=== PATIENT | male | born 1965 | race African-American/Black ===

== ENCOUNTER 2016-07-10 05:45 | Inpatient (IN) | payer OTHER ==
[2016-07-10] VITALS (16 sets, daily range): BP systolic 113–138; BP diastolic 73–96; PULSE 100–106; RESP 24–48; TEMP 97.5; Ht 176.5 cm; Wt 123.0 kg
[~2016-07-10] VITALS: Ht 176.5 cm; Wt 123.0 kg
[~2016-07-10 05:45] MED LIST: ALBU8.5H5 INH; AMIT100T2 PO; APIX2.5T PO; ASC500 PO; ASPI-664 PO; AZIT250T6 PO; CEPH500C PO; FER325 PO; LISI10TA2 PO; MULT-552 PO; OLAN10TA7 PO; PANT40TA3 PO; POLY17PO6 PO; RALT400T4 PO; TRUV PO
[2016-07-10] MEDS ORDERED: ALBUTEROL 0.083% (NEB) 2.5 MG/3 ML AMP HHN STA (05:48)
[2016-07-10] MEDS ORDERED: IPRATROPIUM (NEB) 0.5 MG/2.5 ML AMP HHN ONE (06:00)
[2016-07-10] MEDS ORDERED: ALBUTEROL 0.5% (NEB) 2.5 MG/0.5 ML AMP INH STA (06:03)
[2016-07-10] MEDS ORDERED: IPRATROPIUM (NEB) 0.5 MG/2.5 ML AMP INH STA (06:03)
--- NOTE | 2016-07-10 06:19 | ERA ---
ER Documentation Chief Complaint Date/Time DATE: 07/10/16 TIME: 06:15 Chief Complaint bib ra c/o SOB x 5 days, low ra sats but corrects w/ hi-joe O2; denies COPD HPI This is a 50-year-old transgender male to female who goes by the name of Joanne. The patient has a history of HIV on antiviral therapy with AIDS defining illness of PCP pneumonia in March. The patient also has a history of hormone replacement therapy, DVT, pulmonary embolism on Eliquis. The patient presents with shortness of breath for several days approximately 5. She does describe a cough that is dry and nonproductive. No fevers or chills. She denies any chest pain, no pleuritic pain, no lower extremity swelling. The patient arrives with significant hypoxia in the field including 70s upon arrival responsive to supplemental oxygen. ROS All systems reviewed and are negative except as per history of present illness. Medications Home Meds Active Scripts Apixaban* (Eliquis*) 2.5 Mg Tablet, 5 MG PO BID for 30 Days, TAB Prov:YUDY CINTRON 04/03/15 Reported Medications Ferrous Sulfate* (Ferrous Sulfate*) 325 Mg Tabec, 325 MG PO BID, TAB 07/10/16 Fluticasone Propionate (Flonase Allergy Relief) 9.9 Ml Keiser.susp, 1 SPRAY NASAL BID, #1 BOTTLE TO EACH NOSTRIL 07/10/16 Terbinafine Hcl* (Terbinafine Hcl*) 250 Mg Tablet, 250 MG PO DAILY, TAB 07/10/16 Calcium Citrate/Vitamin D (Citracal-Vitamin D 200 MG-250) 1 Each Tablet, 1 EACH PO BID, TAB 07/10/16 Olanzapine* (Zyprexa*) 10 Mg Tablet, 20 MG PO DAILY, #30 TAB 07/10/16 Lisinopril* (Lisinopril*) 20 Mg Tablet, 20 MG PO DAILY, #30 TAB 07/10/16 Multivitamins* (Once Daily*) 1 Tab Tablet, 1 TAB PO DAILY, TAB 01/31/15 Pantoprazole* (Protonix*) 40 Mg Tablet.dr, 40 MG PO DAILY 03/19/13 Emtricitabine-Tenofovir* (Truvada*) 1 Tab Tab, 1 TAB PO DAILY 03/19/13 Raltegravir Potassium* (Isentress*) 400 Mg Tablet, 400 MG PO BID 03/19/13 Discontinued Reported Medications Amitriptyline Hcl* (Amitriptyline Hcl*) 100 Mg Tablet, 150 MG PO QHS, #30 TAB 01/20/16 Olanzapine* (Zyprexa*) 10 Mg Tablet, 10 MG PO DAILY, TAB 02/01/15 Aspirin (Aspirin) 81 Mg Tablet.dr, 81 MG PO DAILY 03/19/13 Lisinopril* (Lisinopril*) 10 Mg Tablet, 10 MG PO DAILY 03/19/13 Discontinued Scripts Cephalexin* (Cephalexin*) 500 Mg Capsule, 500 MG PO Q8, #15 CAP Prov:HAYDE OGDEN MD 04/15/16 Azithromycin* (Azithromycin*) 250 Mg Tablet, 250 MG PO DAILY, #5 TAB Prov:HAYDE OGDEN MD 04/15/16 Ascorbic Acid (Vitamin C) 500 Mg Tab, 500 MG PO DAILY for 30 Days, TAB 1 Refill Prov:HAYDE OGDEN MD 04/15/16 Ferrous Sulfate* (Ferrous Sulfate*) 325 Mg Tabec, 325 MG PO DAILY for 30 Days, TAB 1 Refill Prov:HAYDE OGDEN MD 04/15/16 Polyethylene Glycol* (Miralax*) 17 Gm Powd.pack, 17 GM PO DAILY, #15 Prov:AUSTIN PRECIADO MD 01/08/16 Albuterol Sulfate* (Albuterol Sulfate* HFA) 8.5 Gm Hfa.aer.ad, 1-2 PUFF INH Q4H Y for WHEEZING AND SOB, #1 INHALER Prov:VIGNESH GUIDO MD 03/24/15 Allergies Allergies: Coded Allergies: No Known Allergy (Unverified , 07/10/16) PMhx/Soc History of Surgery: Yes (BACK SURGERY FEB 2015, EXPLORATORY SURGERY 1987) Anesthesia Reaction: No Hx Neurological Disorder: No Hx Respiratory Disorders: No Hx Cardiac Disorders: Yes (HTN ) Hx Psychiatric Problems: No Hx Miscellaneous Medical Probl: No Hx Alcohol Use: No Hx Substance Use: No Hx Tobacco Use: Yes FmHx Family History: No diabetes Physical Exam Vitals Vital Signs Date Time Temp Pulse Resp B/P Pulse Ox O2 Delivery O2 Flow Rate FiO2 07/10/16 06:54 129 100 100 07/10/16 06:30 Non Rebreather 15 07/10/16 06:02 98.1 125 26 144/88 90 07/10/16 06:00 125 42 92 Non Rebreather Mask 15.0 100 Physical Exam General: Well developed, well nourished, no acute distress, no significant respiratory distress, talking in full sentences Head: Normocephalic, atraumatic. Eyes: Pupils equally reactive, EOM intact ENT: Moist mucous membranes Neck: Supple, no lymphadenopathy Respiratory: Decreased aeration bilaterally with poor effort Cardiovascular: RRR, no murmurs, rubs, or gallops Abdominal: Soft, protuberant, non-tender, non-distended, no peritoneal signs : Deferred MSK: No edema, no unilateral swelling, 5/5 strength Neurologic: Alert and oriented, moving all extremities, normal speech, no focal weakness, no cerebellar signs Skin: No rash Psych: Normal mood Result Diagram: 07/10/16 0600 07/10/16 0600 Results 24 hrs Laboratory Tests Test 07/10/16 06:00 07/10/16 06:03 White Blood Count 9.310^3/ul Red Blood Count 4.6110^6/ul Hemoglobin 12.4g/dl Hematocrit 38.6% Mean Corpuscular Volume 83.7fl Mean Corpuscular Hemoglobin 26.9pg Mean Corpuscular Hemoglobin Concent 32.1g/dl Red Cell Distribution Width 17.0% Platelet Count 09935^3/UL Mean Platelet Volume 9.1fl Neutrophils % 76.9% Lymphocytes % 14.1% Monocytes % 6.4% Eosinophils % 1.3% Basophils % 0.3% Nucleated Red Blood Cells % 0.0/100WBC Neutrophils # 7.210^3/ul Lymphocytes # 1.310^3/ul Monocytes # 0.610^3/ul Eosinophils # 0.110^3/ul Basophils # 0.010^3/ul Nucleated Red Blood Cells # 0.010^3/ul Prothrombin Time 15.7Sec Prothrombin Time Ratio 1.2 INR International Normalized Ratio 1.24 Activated Partial Thromboplast Time 33.6Sec Sodium Level 134mmol/L Potassium Level 3.8mmol/L Chloride Level 96mmol/L Carbon Dioxide Level 29mmol/L Anion Gap 13 Blood Urea Nitrogen 5mg/dl Creatinine 0.87mg/dl Glucose Level 123mg/dl Lactic Acid Level 1.4mmol/L Calcium Level 8.5mg/dl Total Bilirubin 0.0mg/dl Direct Bilirubin 0.00mg/dl Indirect Bilirubin 0.0mg/dl Aspartate Amino Transf (AST/SGOT) 47IU/L Alanine Aminotransferase (ALT/SGPT) 24IU/L Alkaline Phosphatase 79IU/L Lactate Dehydrogenase 1551IU/L Troponin I < 0.012ng/ml B-Type Natriuretic Peptide 483PG/ML Total Protein 7.2g/dl Albumin 3.8g/dl Globulin 3.40g/dl Albumin/Globulin Ratio 1.11 Blood Gas Specimen Source Blood arterial Arterial Blood Date Drawn 07/10/2016 6:20:24 AM Arterial Blood pH (Temp corrected) 7.437 Arterial Blood pCO2 (Temp correct) 38.7mmhg Arterial Blood pO2 (Temp corrected) 61.6mmHG Arterial Blood HCO3 25.5mmol/L Arterial Blood Base Excess 1.4mmol/L Arterial Blood Oxygen Saturation 92.1mmHG Abhi Test N/A Arterial Blood Gas Puncture Site Right Brachial Arterial Blood Carboxyhemoglobin 1.9% Arterial Blood Methemoglobin 0.2% Blood Gas A-a O2 Differential 215.2mmHg Oxyhemoglobin Percent 90.2% Total Hemoglobin 13.3g/dl Blood Gas Temperature 37.0C Blood Gas Actual Respiration Rate 28 Blood Gas Modality AEROSOL TX MASK FiO2 45.0% Blood Gas Critical Value Read Back DR GUIDO, N. Blood Gas Notified Whom BL Blood Gas Notified Time 07/10/2016 6:29:39 AM Current Medications Medications (Trade) Dose Ordered Sig/Tanner Route PRN Reason Start Time Stop Time Status Last Admin Dose Admin Albuterol (Proventil 0.083% (Neb)) 5 mg ONCE STAT HHN 07/10/16 05:48 07/10/16 05:50 DC Ipratropium [place] (Atrovent 0.02% (Neb)) 0.5 mg ONCE ONCE HHN 07/10/16 06:00 07/10/16 06:01 DC Albuterol (Proventil 0.5% (Neb)) 10 mg ONCE STAT INH 07/10/16 06:03 07/10/16 06:05 DC 07/10/16 06:05 Ipratropium [place] (Atrovent 0.02% (Neb)) 1 mg ONCE STAT INH 07/10/16 06:03 07/10/16 06:05 DC 07/10/16 06:05 Methylprednisolone Sodium Succinate 125 mg 125 mg ONCE ONCE IV 07/10/16 06:30 07/10/16 06:31 DC 07/10/16 06:22 Sodium Chloride 1,000 ml @ 1,000 mls/hr Q1H STAT IV 07/10/16 06:34 07/10/16 07:33 DC Cefepime HCl 50 ml @ 100 mls/hr ONCE STAT IVPB 07/10/16 06:34 07/10/16 07:03 DC 07/10/16 07:21 Vancomycin HCl 250 ml @ 125 mls/hr ONCE STAT IVPB 07/10/16 06:34 07/10/16 08:33 DC Trimethoprim/ Sulfamethoxazole/ Dextrose (Bactrim/D5W) 538.4 ml @ 350 mls/hr Q6 IVPB 07/10/16 07:00 07/10/16 08:34 Sodium Chloride (NS) 2,810 ml BOLUS OVER 2 HOURS STAT IV* 07/10/16 07:04 07/10/16 07:09 DC 07/10/16 07:22 Hydromorphone HCl (Dilaudid) 0.5 mg ONCE STAT IV 07/10/16 07:45 07/10/16 07:46 DC 07/10/16 08:27 Ondansetron HCl (Zofran Inj) 4 mg ONCE STAT IV 07/10/16 07:45 07/10/16 07:46 DC 07/10/16 08:27 Procedures/MDM EKG, MONITORS, & DIAGNOSTIC IMAGING: EKG: I reviewed and interpreted a 12-lead EKG. Rhythm: Sinus tachycardia Ectopy: None Intervals: No abnormalities ST segments: No elevations or depressions T waves: No contiguous inversions Chest x-ray: I reviewed and interpreted a 1 view of the chest Mediastinum: No enlargement Cardiac silhouette: cardiomegaly Airspace: Bilateral infiltrates Bones: No evidence of fracture LAB INTERPRETATION: No leukocytosis, negative troponin, indeterminate BNP, elevated LDH, negative lactic acid MEDICAL DECISION MAKING: The patient reports no history of COPD however a hospitalization in March shows evidence of emphysema. Given the patient's significant hypoxia I believe the patient would benefit from supplemental oxygen, hour long nebulizer, steroids. Additionally, the patient has been diagnosed with PCP pneumonia. Given the level of hypoxia this could represent PCP pneumonia. LDH has been sent. Chest x-ray obtained. Patient also has history of pulmonary embolism. Consider shunt physiology. If the patient's chest x-ray is not definitive a CTPA would be reasonable. The patient has had a recent CD4 greater than 900 however the patient does have an AIDS defining illness in the form of PCP pneumonia. No clinical signs or symptoms concerning for volume overload or CHF. ER COURSE: The patient was immediately placed on a nonrebreather with correction of significant hypoxia to 100% oxygen. This is reassuring., The patient has no significant work of breathing, no indication for positive pressure ventilation at this time. The patient's laboratory testing is also consistent with likely PCP pneumonia. The patient has bilateral infiltrates that are significant. The patient does not have an echocardiogram, BNP is indeterminate. I do not believe this is consistent with CHF. The patient has been given 2 L of saline with an improved heart rate. The patient does not meet sepsis criteria as the patient only has 1 out of 4 Sirs criteria. The patient would originally get 4 L of saline. I am concerned about volume overload in that setting. Therefore the patient has been given 2 L of saline. Broad-spectrum antibiotics in the form of vancomycin and cefepime as well as Bactrim were provided. The patient received steroids for emphysema but also requires steroids because of increased AA gradient in the setting of PCP pneumonia. The patient was started on BiPAP with improved symptomatology. The patient does not require intubation at this time. The patient however I believe would benefit from observation in the ICU. I have a lower clinical concern for pulmonary embolism. The patient states compliance with Eliquis. Given better alternative diagnosis given chest x-ray findings I do not believe a CTA at this time is warranted. I kept the patient and/or family informed of laboratory and diagnostic imaging results throughout the emergency room course. DISPOSITION PLAN: ICU admission CONSULTATION: Accepting care team and consultations: I discussed the current laboratory data, diagnostic imaging and emergency care provided. Admitting team: Dr. Miller Admitting team indication: Insurance directed Critical Care Note: Total time: 47 minutes Indication/Organ System Threat: Severe hypoxia, PCP pneumonia I spent the above amount of critical care time with the patient, not including billable procedures. This included chart review, consultations, repeat bedside evaluations, and titration of appropriate medications to prevent cardiopulmonary or respiratory collapse. Departure Diagnosis: Primary Impression: PCP (pneumocystis carinii pneumonia) Qualified Code: B59 - Pneumonia of both lungs due to Pneumocystis jirovecii, unspecified part of lung Additional Impressions: Acute respiratory failure Qualified Code: J96.01 - Acute respiratory failure with hypoxia History of HIV or AIDS Hypoxia Condition: Serious VIGNESH GUIDO MD Jul 10, 2016 06:19
[2016-07-10 06:25] LABS: ADD SCAN DIFF NO
[2016-07-10 06:29] LABS: AADO2 Arterial 215.2 mmHg (7.0-24.0); Arterial Base Excess 1.4 mmol/L (-3.0-3); Arterial COHb 1.9 % (0.0-3.0); Arterial Fraction of Oxyhgb 90.2 % (93.0-99.0); Arterial HCO3 25.5 mmol/L (22.0-26.0); Arterial MetHb 0.2 % (0.0-1.5); Arterial Total Hemglobin 13.3 g/dl (12.0-18.0); MODE AEROSOL TX MASK
[2016-07-10] MEDS ORDERED: METHYLPREDNISOLONE 125 MG INJ IV ONE (06:30)
[2016-07-10] MEDS ORDERED: VANCOMYCIN 1 GM (PMX) 250 ML IVPB STA (06:34)
[2016-07-10] MEDS ORDERED: CEFEPIME 1GM/50 ML (PMX) 50 ML IVPB STA (06:34)
[2016-07-10] MEDS ORDERED: SOD CHLORIDE 0.9% 1,000 ML IV STA (06:34)
[2016-07-10 06:37] LABS: BASOPHILS % 0.3 % (0.0-2.0); EOSINOPHILS # 0.1 10^3/ul (0.0-0.5); EOSINOPHILS % 1.3 % (0.0-7.0); HEMATOCRIT 38.6 % (42.0-52.0); HEMOGLOBIN 12.4 g/dl (14.0-18.0); INR 1.24; LYMPHOCYTES # 1.3 10^3/ul (0.8-2.9); LYMPHOCYTES % 14.1 % (15.0-51.0); MEAN CORPUSCULAR HEMOGLOBIN 26.9 pg (29.0-33.0); MEAN CORPUSCULAR HGB CONC 32.1 g/dl (32.0-37.0); MEAN CORPUSCULAR VOLUME 83.7 fl (82.0-101.0); MEAN PLATELET VOLUME 9.1 fl (7.4-10.4); MONOCYTE # 0.6 10^3/ul (0.3-0.9); MONOCYTES % 6.4 % (0.0-11.0); NEUTROPHIL # 7.2 10^3/ul (1.6-7.5); NEUTROPHILS % 76.9 % (39.0-77.0); PLATELET COUNT 287 10^3/UL (140-415); PROTIME 15.7 Sec (12.2-14.2); PT RATIO 1.2; RED BLOOD COUNT 4.61 10^6/ul (4.70-6.10); WHITE BLOOD COUNT 9.3 10^3/ul (4.8-10.8)
[2016-07-10 06:38] LABS: PARTIAL THROMBOPLASTIN TIME 33.6 Sec (25.0-35.0)
--- NOTE | 2016-07-10 06:39 | RADRPT ---
PROCEDURE: Chest. CLINICAL INDICATION: Shortness of breath. TECHNIQUE: Single frontal view of the chest was obtained. COMPARISON: 04/13/2016. FINDINGS: The cardiac silhouette is magnified. The aortic arch is unremarkable. There are hazy and patchy op acities bilaterally. There is no pneumothorax. IMPRESSION: Bilateral hazy and patchy opacities could represent pulmonary edema and/or multifocal pneumonia, inc reased compared with the prior study. .Kenyon Barnett MD, MD Date Time Electronically viewed and signed by .Kenyon Barnett MD, on 07/10/2016 06:39 .T/
[2016-07-10 06:49] LABS: ALBUMIN 3.8 g/dl (3.3-4.9); CHLORIDE 96 mmol/L (97-110); SODIUM 134 mmol/L (135-144)
[2016-07-10 06:50] LABS: POTASSIUM 3.8 mmol/L (3.5-5.1)
[2016-07-10 06:52] LABS: ALANINE AMINOTRANSFERASE 24 IU/L (13-69); ALBUMIN/GLOBULIN RATIO 1.11; ALKALINE PHOSPHATASE 79 IU/L (42-121); ANION GAP 13 (8-16); ASPARTATE AMINO TRANSFERASE 47 IU/L (15-46); BLOOD UREA NITROGEN 5 mg/dl (7-20); CARBON DIOXIDE 29 mmol/L (21-31); CREATININE 0.87 mg/dl (0.61-1.24); GLUCOSE 123 mg/dl (70-220); TOTAL PROTEIN 7.2 g/dl (6.1-8.1)
[2016-07-10 06:53] LABS: CALCIUM 8.5 mg/dl (8.4-10.2)
[2016-07-10] MEDS ORDERED: SODIUM CHLORIDE 0.9% 1L BAG IV* STA (07:04)
[2016-07-10] MEDS ORDERED: LISI20TA11 PO (07:06)
[2016-07-10] MEDS ORDERED: OLAN10TA7 PO (07:07)
[2016-07-10] MEDS ORDERED: CALC-143 PO (07:08)
[2016-07-10] MEDS ORDERED: TERB250T9 PO (07:09)
[2016-07-10] MEDS ORDERED: FLUT9.9S NASAL (07:10)
[2016-07-10] MEDS ORDERED: FER325 PO (07:19)
[2016-07-10] MEDS ORDERED: HYDROmorphONE 1 MG/ML SYG IV STA ×2 (07:45→12:01)
[2016-07-10] MEDS ORDERED: ONDANSETRON 4 MG INJ IV STA (07:45)
[2016-07-10 07:46] LABS: B-TYPE NATRIURETIC PEPTIDE 483 PG/ML (0-125)
[2016-07-10 07:56] LABS: TROPONIN-I < 0.012 ng/ml (0.00-0.12)
[2016-07-10] MEDS: DEXTROSE IVPB SCH ×3 (08:34→20:24)
[2016-07-10] MEDS: SULFAMETHOXAZOLE IVPB SCH ×3 (08:34→20:24)
[2016-07-10] MEDS: TRIMETHOPRIM IVPB SCH ×3 (08:34→20:24)
[2016-07-10] MEDS ORDERED: LORAZEPAM 2 MG INJ IV PRN (09:00)
[2016-07-10] MEDS ORDERED: ONDANSETRON 4 MG INJ IV PRN (09:00)
[2016-07-10] MEDS: MULTIVITAMINS THERAPEUTIC TAB PO SCH (09:00)
[2016-07-10] MEDS ORDERED: ALBUTEROL/IPRATROPIUM (NEB) 3 ML AMP HHN PRN (09:00)
[2016-07-10] MEDS: OLANZAPINE 5 MG TAB PO SCH (10:23)
[2016-07-10] MEDS: APIXABAN 5 MG TABLET PO SCH ×2 (10:23→21:43)
[2016-07-10] MEDS: EMTRICITABINE/TENOFOVIR TAB PO SCH (10:23)
[2016-07-10] MEDS: TERBINAFINE 250 MG TAB PO SCH (10:24)
[2016-07-10] MEDS: RALTEGRAVIR 400 MG TAB PO SCH ×2 (10:24→21:43)
[2016-07-10] MEDS: CALCIUM/VITAMIN D (250/125) TAB PO SCH ×2 (10:24→21:44)
[2016-07-10] MEDS: LISINOPRIL 20 MG TAB PO SCH (10:24)
[2016-07-10] MEDS: FERROUS SULFATE (EC) 325 MG TAB PO SCH ×2 (10:24→21:43)
[2016-07-10] MEDS: FLUTICASONE 0.05% 16 GM NAS SPRAY NASAL SCH ×2 (10:24→21:44)
[2016-07-10] MEDS: FAMOTIDINE 20 MG INJ IV SCH (10:36)
[2016-07-10] MEDS: FUROSEMIDE 40 MG INJ IV SCH (10:36)
[2016-07-10] MEDS: PANTOPRAZOLE (EC) 40 MG TAB PO SCH (10:36)
[2016-07-10] MEDS: ALBUTEROL/IPRATROPIUM (NEB) 3 ML AMP HHN SCH ×4 (11:45→21:30)
[2016-07-10 12:31] LABS: CREATINE KINASE 106 IU/L (23-200)
--- NOTE | 2016-07-10 12:46 | CONS ---
Date/Time of Note Date/Time of Note DATE: 07/10/16 TIME: 12:42 Assessment/Plan Assessment/Plan Additional Assessment/Plan Chest x-ray was reviewed from today which is showing bilateral it without infiltrates. Next Assessment recommendations; 1. Patient admitted for bilateral pneumonia possibly PCP however CD4 count is quite elevated that would make it very unlikely. 2. Possibly community acquired pneumonia. 3. Patient's BNP level is not elevated significantly, however there is mild cardiomegaly on chest x-ray is consistent with pulmonary edema as well. 4. History of being transgender. 5. History of prior PCP pneumonia in March of last year. Continue current treatment. Patient had been given Lasix. Continue BiPAP for now obtain a follow-up chest x-ray in 24 hours. Consultation Date/Type/Reason Admit Date/Time Date of Consultation: Jul 10, 2016 Type of Consultation: Pulmonary/critical care Reason for Consultation Pulmonary consultations requested for evaluation of bilateral pneumonia. Next History presenting; patient is a 50-year-old transgender male who was brought into the ER with complaints of shortness of breath going on for the last year to. Upon evaluation chest x-ray was done which is showing diffuse bilateral infiltrates which is suggestive of PCP pneumonia. The patient is very poor historian history was obtained from medical records. Patient had an admission in March of last year and was diagnosed with PCP pneumonia it is not clear whether patient is on any prophylactic medications or not. No history of any nausea vomiting fever. Past medical history; 1. History of HIV positive patient on anti-retroviral treatment. Evidently CD4 count is around 900. 2. History of being transgender. 3. Patient on hormone replacement therapy. 4. Depression 5. History of back surgery. 6. History of laparotomy. Medications; were reviewed. Allergies; are none. Next Social history; most of any smoking. Family history; noncontributory. Next Occupational history; patient is on disability. Review of systems; currently unable to be obtained. General exam; middle aged man, appears quite overweight currently in no distress. On BiPAP. Social History Smoking Status: Current every day smoker Exam/Review of Systems Vital Signs Vitals Vital Signs Date Time Temp Pulse Resp B/P Pulse Ox O2 Delivery O2 Flow Rate FiO2 07/10/16 12:00 98.1 117 20 135/89 98 BIPAP 15.0 07/10/16 11:51 100 Exam HEENT exam; supple neck, no JVD. No lymphadenopathy. Midline trachea. Patient has fair dentition. Pupils are midsize and reactive to light. No neck masses. Chest examination a micro diminished breath sound bilaterally. S1-S2 audible, no murmurs. Regular rhythm. Abdomen examination; soft, nondistended. No organomegaly. Bowel sounds audible. Extremity examination; no peripheral edema. PLANISHER examination a micro patient opens eyes on name calling. Results Result Diagram: 07/10/16 0600 07/10/16 0600 Results 24 hrs Laboratory Tests Test 07/10/16 06:00 07/10/16 06:03 07/10/16 08:09 07/10/16 09:44 White Blood Count 9.3 Red Blood Count 4.61 L Hemoglobin 12.4 L Hematocrit 38.6 #L Mean Corpuscular Volume 83.7 Mean Corpuscular Hemoglobin 26.9 L Mean Corpuscular Hemoglobin Concent 32.1 Red Cell Distribution Width 17.0 H Platelet Count 287 Mean Platelet Volume 9.1 Neutrophils % 76.9 Lymphocytes % 14.1 L Monocytes % 6.4 Eosinophils % 1.3 Basophils % 0.3 Nucleated Red Blood Cells % 0.0 Neutrophils # 7.2 Lymphocytes # 1.3 Monocytes # 0.6 Eosinophils # 0.1 Basophils # 0.0 Nucleated Red Blood Cells # 0.0 Prothrombin Time 15.7 H Prothrombin Time Ratio 1.2 INR International Normalized Ratio 1.24 Activated Partial Thromboplast Time 33.6 Sodium Level 134 L Potassium Level 3.8 Chloride Level 96 L Carbon Dioxide Level 29 Anion Gap 13 Blood Urea Nitrogen 5 L Creatinine 0.87 Glucose Level 123 Lactic Acid Level 1.4 1.8 1.0 Calcium Level 8.5 Total Bilirubin 0.0 L Direct Bilirubin 0.00 Indirect Bilirubin 0.0 Aspartate Amino Transf (AST/SGOT) 47 H Alanine Aminotransferase (ALT/SGPT) 24 Alkaline Phosphatase 79 Lactate Dehydrogenase 1551 H Troponin I < 0.012 B-Type Natriuretic Peptide 483 H Total Protein 7.2 Albumin 3.8 Globulin 3.40 H Albumin/Globulin Ratio 1.11 Blood Gas Specimen Source Blood arterial Arterial Blood Date Drawn 07/10/2016 6:20:24 AM Arterial Blood pH (Temp corrected) 7.437 Arterial Blood pCO2 (Temp correct) 38.7 Arterial Blood pO2 (Temp corrected) 61.6 L Arterial Blood HCO3 25.5 Arterial Blood Base Excess 1.4 Arterial Blood Oxygen Saturation 92.1 L Abhi Test N/A Arterial Blood Gas Puncture Site Right Brachial Arterial Blood Carboxyhemoglobin 1.9 Arterial Blood Methemoglobin 0.2 Blood Gas A-a O2 Differential 215.2 H Oxyhemoglobin Percent 90.2 L Total Hemoglobin 13.3 Blood Gas Temperature 37.0 Blood Gas Actual Respiration Rate 28 Blood Gas Modality AEROSOL TX MASK FiO2 45.0 Blood Gas Critical Value Read Back DR GUIDO N. Blood Gas Notified Whom BL Blood Gas Notified Time 07/10/2016 6:29:39 AM Medications Medications Current Medications Trimethoprim/ Sulfamethoxazole/ Dextrose (Bactrim/D5W) 538.4 ml @ 350 mls/hr Q6 IVPB Last administered on 07/10/16 08:34; Admin Dose 350 MLS/HR; Start at 07:00 Furosemide (Lasix) 40 mg DAILY IV Last administered on 07/10/16 10:36; Admin Dose 40 MG; Start 07/10/16 at 09:00 Ondansetron HCl (Zofran Inj) 4 mg Q6H PRN IV NAUSEA AND/OR VOMITING; Start at 09:00 Famotidine (Pepcid Iv) 20 mg DAILY IV Last administered on 07/10/16 10:36; Admin Dose 20 MG; Start 07/10/16 at 09:00 Lorazepam (Ativan) 0.5 mg Q6H PRN IV agitation; Start 07/10/16 at 09:00 Apixaban (Eliquis) 5 mg BID PO Last administered on 07/10/16 10:23; Admin Dose 5 MG; Start 07/10/16 at 09:00 Emtricitabine/ Tenofovir (Truvada) 1 tab DAILY PO Last administered on 10:23; Admin Dose 1 TAB; Start 07/10/16 at 09:00 Ferrous Sulfate (Ferrous Sulfate (Ec)) 325 mg BID PO Last administered on 10:24; Admin Dose 325 MG; Start 07/10/16 at 09:00 Fluticasone Propionate (Flonase 0.05% Nasal) 1 spray BID NASAL Last administered on 07/10/16 10:24; Admin Dose 1 SPRAY; Start 07/10/16 at 09:00 Lisinopril (Zestril) 20 mg DAILY PO Last administered on 07/10/16 10:24; Admin Dose 20 MG; Start 07/10/16 at 09:00 Multivitamins Therapeutic (Theragran) 1 tab DAILY PO ; Start 07/10/16 at 09:00 Olanzapine (Zyprexa) 20 mg DAILY PO Last administered on 07/10/16 10:23; Admin Dose 20 MG; Start 07/10/16 at 09:00 Pantoprazole (Protonix Tab) 40 mg DAILY PO Last administered on 07/10/16 10:36 ; Admin Dose 40 MG; Start 07/10/16 at 09:00 Miscellaneous Medication (Isentress) 400 mg BID PO Last administered on 10:24; Admin Dose 400 MG; Start 07/10/16 at 09:00 Terbinafine HCl (Lamisil) 250 mg DAILY PO Last administered on 07/10/16 10:24 ; Admin Dose 250 MG; Start 07/10/16 at 09:00 Calcium/Vitamin D (Oyster Shell/ Vit-D (250/125)) 1 tab BID PO Last administered on 07/10/16 10:24; Admin Dose 1 TAB; Start 07/10/16 at 09:00 ELIANE SINGLETON Jul 10, 2016 12:46
[2016-07-10 12:49] LABS: CK-MB < 0.22 ng/ml (0.0-2.4); TROPONIN-I < 0.012 ng/ml (0.00-0.12)
--- NOTE | 2016-07-10 12:58 | RADRPT ---
Echocardiogram Report Patient Name: JUDI BARNES Gender: Male Date: 1965 Study Date: 10-Jul-2016 Grainer Machine: Tha Ayon RDCS Location: [facility] Ref. Physician: DEANDRE MONTERROSO Quality: Good Procedures: Transthoracic echocardiogram with complete 2D, M-Mode, and doppler examination. Indications: hypoxia. 2D/M Mode Doppler Measurement Value Normal Ranges Measurement Value Normal Ranges LVIDd 2D 4.4 3.5 - 5.6 cm AV Peak Joseluis 1.6 m/sec LVIDs 2D 2.5 2.1 - 4.1 cm AV Peak PG 9.7 mmHg LVPWd 2D 0.9 0.6 - 1.1 cm LVOT Peak Joseluis 1.2 m/sec IVSd 2D 0.9 0.6 - 1.1 cm LVOT Peak PG 6.2 mmHg AoR Diam 2D 2.7 2.0 - 3.7 cm EDV 2D 87.7 cm3 ESV 2D 14.8 cm3 LA Dimen 2D 2.7 2.3 - 4.0 cm Findings Left Ventricle: Normal left ventricular systolic function. Normal left ventricular cavity size. Normal left ventricular wall thickness. Ejection fraction is visually estimated at 65 %. Right Ventricle: Normal right ventricular size. Normal right ventricular systolic function. Left Atrium: The left atrium is normal in size. Right Atrium: The right atrium is normal in size. Mitral Valve: Normal appearance and function of the mitral valve with trace physiologic regurgitation. Aortic Valve: Normal appearance of the aortic valve. No significant aortic stenosis or insufficiency. Tricuspid Valve: Normal appearance and function of the tricuspid valve with trace physiologic regurgitation. Pulmonic Valve: Normal pulmonic valve appearance. Pericardium: Normal pericardium with no significant pericardial effusion. Aorta: Normal aortic root. IVC: Normal size and normal respiratory collapse consistent with normal right atrial pressure. Conclusions 1.Normal left ventricular systolic function. Normal left ventricular cavity size. Normal left ventricular wall thickness. Ejection fraction is visually estimated at 65 %. 2.Normal right ventricular size. Normal right ventricular systolic function. 3.The left atrium is normal in size. 4.The right atrium is normal in size. 5.No significant valvular stenosis or regurgitation seen. 6.Normal pericardium with no significant pericardial effusion. Electronically Signed By: Viktor Solano 10-Jul-2016 12:57:01 -0700 Patient Name: JUDI BARNES Study Date: 10-Jul-2016 [id number]
[2016-07-10] MEDS ORDERED: morphine 2 MG INJ IV PRN (16:00)
[2016-07-10] MEDS ORDERED: CEFTRIAXONE 1 GM/50 ML (PMX) 50 ML IVPB SCH (18:00)
--- NOTE | 2016-07-10 18:52 | HP ---
DATE OF ADMISSION: 07/10/2016 CHIEF COMPLAINT: Shortness of breath. HISTORY OF PRESENT ILLNESS: This is a pleasant transgender female who prefers to be referred to as Joanne with past medical history of HIV on HAART therapy, previous hepatitis C status post treatment , bipolar disorder, hypertension, history of Staph pneumonia, hemothorax, history of L4-L5 fusion razo rgery with revision who presents to [facility] secondary to having 5 days of short ness of breath with cough and congestion without any fever or chills. The patient denies any chest pain, pleuritic pain, lower extremity swelling. Upon arrival to emergency room, the patient was fou nd to be hypoxic with oxygen saturation in 70s, and she responded to supplementation of oxygen. She was treated with Zofran, Dilaudid, normal saline, vancomycin, cefepime, Solu-Medrol, and breathing treatment. At this time, the patient has been admitted to ICU. The patient has been on BiPAP which has been transitioned to face mask. She denies having any chest pain although continues to complai n of having shortness of breath at this time. PAST MEDICAL AND SURGICAL HISTORY: As above per HPI. MEDICATIONS: 1. Eliquis. 2. Calcium plus vitamin D. 3. Truvada. 4. Ferrous sulfate. 5. Flonase. 6. Lisinopril. 7. Multivitamin. 8. Zyprexa. 9. Protonix. 10. Isentress. 11. Terbinafine. ALLERGIES: NO KNOWN DRUG ALLERGIES. FAMILY HISTORY: Noncontributory. SOCIAL HISTORY: Positive for history of smoking and currently smoking 5 cigarettes per day. No alc ohol, no illicit drugs. REVIEW OF SYSTEMS: As above per HPI. Otherwise, 12 review of systems was found to be negative. PHYSICAL EXAMINATION: VITAL SIGNS: Temperature 97.5, pulse 100, respiration 28, blood pressure 150/70, oxygen 96% on nonr ebreather mask 15 liters. GENERAL APPEARANCE: The patient is lying in bed comfortably without any distress. She is not using any accessory muscles for breathing. EYES AND ENT: Conjunctivae and lids are normal. Pupils are normal. Extraocular normal. Hearing g rossly normal. Lips and gums are normal. Oral mucosa is dry. NECK: Supple. Trachea is midline. No lymphadenopathy. RESPIRATORY: Effort is normal. Decreased breath sounds bilateral lower lung sethi. No crackles, no rales, no wheezing. CARDIOVASCULAR: Normal S1, S2. Tachycardic, rhythm controlled. GASTROINTESTINAL: Abdomen is soft, nontender, not distended. Bowel sounds present. No guarding, n o rebound. GENITOURINARY: Deferred. MUSCULOSKELETAL: Upper and lower extremities within normal limits. Full range of motion. NEUROLOGIC: She is awake, alert, oriented. LABORATORY WORK AND IMAGING: WBC 9.3, hemoglobin 12.4, hematocrit 38.6, platelets 287. Sodium 134, potassium 3.8, chloride 96, bicarbonate 29, BUN 13, creatinine 0.87, glucose 123, calcium 8.5. LFT s all within normal limits. BNP 483. Troponin negative. Chest x-ray showed bilateral hazy patchy opacity which could represent pulmonary edema and ____ pneumonia. ASSESSMENT AND PLAN: 1. Pneumonia. 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 We w ill follow their recommendation. 2. History of human immunodeficiency virus. Continue HAART therapy. 3. History of pulmonary embolism. Continue Eliquis. 4. Essential hypertension, well controlled on lisinopril. 5. Gastroesophageal reflux disease. Continue PPI. 6. History of bipolar disorder. Continue Zyprexa. We will continue to monitor patient closely. Further recommendations, management, and treatment as per clinical course. For DVT prophylaxis, on Eliquis. Dictated By: HAYDE OGDEN MD PN/NTS Conf#: [id number] DID#: [id number]
[2016-07-10 19:48] LABS: CREATINE KINASE 81 IU/L (23-200)
[2016-07-10 20:03] LABS: CK-MB 0.29 ng/ml (0.0-2.4); TROPONIN-I < 0.012 ng/ml (0.00-0.12)
[2016-07-10] MEDS: morphine 2 MG INJ IV PRN ×2 (20:04→23:06)
[2016-07-10] MEDS: AZITHROMYCIN 500MG/NS (PMX) 250 ML IVPB SCH (20:22)
[2016-07-11] VITALS (22 sets, daily range): BP systolic 82–126; BP diastolic 57–92; PULSE 95–122; RESP 19–50
[2016-07-11 00:35] LABS: AADO2 Arterial 589.6 mmHg (7.0-24.0); Allen Test ACCEPTAB; Arterial Base Excess -2.6 mmol/L (-3.0-3); Arterial COHb 0 % (0.0-3.0); Arterial Fraction of Oxyhgb 94.1 % (93.0-99.0); Arterial HCO3 23.3 mmol/L (22.0-26.0); Arterial MetHb 0.4 % (0.0-1.5); Arterial Total Hemglobin 12.8 g/dl (12.0-18.0); MODE HFNC
[2016-07-11] MEDS: DEXTROSE IVPB SCH ×2 (01:19→05:58)
[2016-07-11] MEDS: TRIMETHOPRIM IVPB SCH ×2 (01:19→05:58)
[2016-07-11] MEDS: SULFAMETHOXAZOLE IVPB SCH ×2 (01:19→05:58)
--- NOTE | 2016-07-11 01:26 | RADRPT ---
PROCEDURE: XR Chest. CLINICAL INDICATION: Shortness of breath. TECHNIQUE: AP Portable chest. COMPARISON: 07/10/2016 FINDINGS: There is moderate cardiomegaly. Bilateral hazy pulmonary opacities are without definite change. Th e osseous structures are unremarkable. IMPRESSION: Unchanged bilateral hazy opacities likely due to pulmonary edema. RPTAT: HIKT .Zachary Crocker MD, MD Date Time Electronically viewed and signed by .Zachary Crocker MD, MD on 07/11/2016 01:26 .T/
[2016-07-11] MEDS: morphine 2 MG INJ IV PRN ×8 (02:01→23:12)
[2016-07-11 04:33] LABS: ADD SCAN DIFF NO
[2016-07-11 04:35] LABS: BASOPHILS % 0.2 % (0.0-2.0); EOSINOPHILS # 0.1 10^3/ul (0.0-0.5); EOSINOPHILS % 0.5 % (0.0-7.0); HEMATOCRIT 35.9 % (42.0-52.0); HEMOGLOBIN 11.6 g/dl (14.0-18.0); LYMPHOCYTES # 1.5 10^3/ul (0.8-2.9); LYMPHOCYTES % 11.8 % (15.0-51.0); MEAN CORPUSCULAR HEMOGLOBIN 27.2 pg (29.0-33.0); MEAN CORPUSCULAR HGB CONC 32.3 g/dl (32.0-37.0); MEAN CORPUSCULAR VOLUME 84.1 fl (82.0-101.0); MONOCYTE # 0.9 10^3/ul (0.3-0.9); MONOCYTES % 6.7 % (0.0-11.0); NEUTROPHIL # 10.5 10^3/ul (1.6-7.5); NEUTROPHILS % 80.3 % (39.0-77.0); PLATELET COUNT 269 10^3/UL (140-415); RED BLOOD COUNT 4.27 10^6/ul (4.70-6.10); RED CELL DISTRIBUTION WIDTH 17.2 % (11.5-14.5)
[2016-07-11 04:48] LABS: CREATININE 0.62 mg/dl (0.61-1.24)
[2016-07-11 04:49] LABS: CALCIUM 8.3 mg/dl (8.4-10.2); MAGNESIUM 2.3 mg/dl (1.7-2.5); PHOSPHORUS 4.5 mg/dl (2.5-4.9)
[2016-07-11 05:32] LABS: POTASSIUM 3.7 mmol/L (3.5-5.1)
[2016-07-11] MEDS: ALBUTEROL/IPRATROPIUM (NEB) 3 ML AMP HHN SCH ×5 (05:45→20:26)
[2016-07-11] MEDS: FUROSEMIDE 40 MG INJ IV SCH (08:10)
[2016-07-11] MEDS: FAMOTIDINE 20 MG INJ IV SCH (08:10)
[2016-07-11] MEDS: FERROUS SULFATE (EC) 325 MG TAB PO SCH ×2 (08:11→21:28)
[2016-07-11] MEDS: RALTEGRAVIR 400 MG TAB PO SCH ×2 (08:11→21:28)
[2016-07-11] MEDS: FLUTICASONE 0.05% 16 GM NAS SPRAY NASAL SCH ×2 (08:11→21:27)
[2016-07-11] MEDS: APIXABAN 5 MG TABLET PO SCH ×2 (08:11→21:28)
[2016-07-11] MEDS: EMTRICITABINE/TENOFOVIR TAB PO SCH (08:12)
[2016-07-11] MEDS: MULTIVITAMINS THERAPEUTIC TAB PO SCH (08:12)
[2016-07-11] MEDS: TERBINAFINE 250 MG TAB PO SCH (08:12)
[2016-07-11] MEDS: PANTOPRAZOLE (EC) 40 MG TAB PO SCH (08:12)
[2016-07-11] MEDS: CALCIUM/VITAMIN D (250/125) TAB PO SCH ×2 (08:12→21:28)
[2016-07-11] MEDS: LISINOPRIL 20 MG TAB PO SCH (08:12)
[2016-07-11] MEDS: OLANZAPINE 5 MG TAB PO SCH (08:13)
--- NOTE | 2016-07-11 10:43 | PN ---
Date/Time of Note Date/Time of Note DATE: 07/11/16 TIME: 10:37 Assessment/Plan VTE Prophylaxis VTE Prophylaxis Intervention: other Lines/Catheters IV C[facility]ter Type ([facility] Peripheral IV Urinary Cath still in place: No Assessment/Plan Chief Complaint/Hosp Course ASSESSMENT AND PLAN: 1. Pneumonia. The patient has been started on broad spectrum IV antibiotic , the neurologist has been consulted, we will follow their recommendation. 2. History of human immunodeficiency virus. Continue HAART therapy. 3. History of pulmonary embolism. Continue Eliquis. 4. Essential hypertension, well controlled on lisinopril. 5. Gastroesophageal reflux disease. Continue PPI. 6. History of bipolar disorder. Continue Zyprexa. We will continue to monitor patient closely. Further recommendations, management, and treatment as per clinical course. For DVT prophylaxis, on Eliquis. Problems: Subjective 24 Hr Interval Summary Free Text/Dictation Patient denies of any chest pain or shortness of breath On high flow nasal cannula 30 L 100% Tolerating oral intake Exam/Review of Systems Vital Signs Vitals Vital Signs Date Time Temp Pulse Resp B/P Pulse Ox O2 Delivery O2 Flow Rate FiO2 07/11/16 09:33 100 100 07/11/16 09:33 83 24 Nasal Cannula 07/11/16 09:00 115/57 07/11/16 08:00 98.6 07/10/16 23:00 15.0 Intake and Output 07/10/16 07/10/16 07/11/16 15:00 23:00 07:00 Intake Total 2050 ml 1846.8 ml 1158.4 ml Output Total 2700 ml 1800 ml 1230 ml Balance -650 ml 46.8 ml -71.6 ml Exam General: The patient is well-developed, Not in acute distress. HEENT: Atraumatic, normocephalic. The pupils are equal and round . Neck: Supple with full range of motion. Chest: Normal expansion of the thorax during inspiration Lungs: Clear to auscultation bilaterally Heart: Normal S1-S2, Regular rhythm and rate. Abdomen: Soft , nontender, nondistended , bowel sounds are present. Extremities: Normal to inspection, no edema no cyanosis Neurologic: Normal mental status,The patient is awake, alert and oriented . Results Result Diagram: 07/11/16 0425 07/11/16 0425 Results 24 hrs Laboratory Tests Test 07/10/16 10:44 07/10/16 18:49 07/11/16 00:30 07/11/16 04:25 Creatine Kinase 106 81 Creatine Kinase Index 0.2 0.4 Creatinine Kinase MB (Mass) < 0.22 0.29 Troponin I < 0.012 < 0.012 Blood Gas Specimen Source Blood arterial Arterial Blood Date Drawn 07/11/2016 12:25:19 AM Arterial Blood pH (Temp corrected) 7.338 L Arterial Blood pCO2 (Temp correct) 44.3 Arterial Blood pO2 (Temp corrected) 79.1 L Arterial Blood HCO3 23.3 Arterial Blood Base Excess -2.6 Arterial Blood Oxygen Saturation 94.5 L Abhi Test ACCEPTAB Arterial Blood Gas Puncture Site Right Radial Arterial Blood Carboxyhemoglobin 0 Arterial Blood Methemoglobin 0.4 Blood Gas A-a O2 Differential 589.6 H Oxyhemoglobin Percent 94.1 Total Hemoglobin 12.8 Blood Gas Temperature 37.0 Blood Gas Modality HFNC FiO2 100.0 Blood Gas Notified Whom [place] Blood Gas Notified Time 07/11/2016 12:35:26 AM White Blood Count 13.0 #H Red Blood Count 4.27 L Hemoglobin 11.6 L Hematocrit 35.9 L Mean Corpuscular Volume 84.1 Mean Corpuscular Hemoglobin 27.2 L Mean Corpuscular Hemoglobin Concent 32.3 Red Cell Distribution Width 17.2 H Platelet Count 269 Mean Platelet Volume 9.0 Neutrophils % 80.3 H Lymphocytes % 11.8 L Monocytes % 6.7 Eosinophils % 0.5 Basophils % 0.2 Nucleated Red Blood Cells % 0.0 Neutrophils # 10.5 H Lymphocytes # 1.5 Monocytes # 0.9 Eosinophils # 0.1 Basophils # 0.0 Nucleated Red Blood Cells # 0.0 Sodium Level 140 Potassium Level 3.7 Chloride Level 102 Carbon Dioxide Level 27 Anion Gap 15 Blood Urea Nitrogen 5 L Creatinine 0.62 Glucose Level 98 Calcium Level 8.3 L Phosphorus Level 4.5 Magnesium Level 2.3 Test 07/11/16 05:49 Bedside Glucose 134 Medications Medications Current Medications Trimethoprim/ Sulfamethoxazole/ Dextrose (Bactrim/D5W) 538.4 ml @ 350 mls/hr Q6 IVPB Last administered on 07/11/16t 05:58; Admin Dose 350 MLS/HR; Start at 07:00 Furosemide (Lasix) 40 mg DAILY IV Last administered on 07/11/16 08:10; Admin Dose 40 MG; Start 07/10/16 at 09:00 Ondansetron HCl (Zofran Inj) 4 mg Q6H PRN IV NAUSEA AND/OR VOMITING; Start at 09:00 Famotidine (Pepcid Iv) 20 mg DAILY IV Last administered on 07/11/16 08:10; Admin Dose 20 MG; Start 07/10/16 at 09:00 Lorazepam (Ativan) 0.5 mg Q6H PRN IV agitation; Start 07/10/16 at 09:00 Apixaban (Eliquis) 5 mg BID PO Last administered on 07/11/16 08:11; Admin Dose 5 MG; Start 07/10/16 at 09:00 Emtricitabine/ Tenofovir (Truvada) 1 tab DAILY PO Last administered on 08:12; Admin Dose 1 TAB; Start 07/10/16 at 09:00 Ferrous Sulfate (Ferrous Sulfate (Ec)) 325 mg BID PO Last administered on 08:11; Admin Dose 325 MG; Start 07/10/16 at 09:00 Fluticasone Propionate (Flonase 0.05% Nasal) 1 spray BID NASAL Last administered on 07/11/16 08:11; Admin Dose 1 SPRAY; Start 07/10/16 at 09:00 Lisinopril (Zestril) 20 mg DAILY PO Last administered on 07/11/16 08:12; Admin Dose 20 MG; Start 07/10/16 at 09:00 Multivitamins Therapeutic (Theragran) 1 tab DAILY PO Last administered on 08:12; Admin Dose 1 TAB; Start 07/10/16 at 09:00 Olanzapine (Zyprexa) 20 mg DAILY PO Last administered on 07/11/16 08:13; Admin Dose 20 MG; Start 07/10/16 at 09:00 Pantoprazole (Protonix Tab) 40 mg DAILY PO Last administered on 07/11/16 08:12 ; Admin Dose 40 MG; Start 07/10/16 at 09:00 Miscellaneous Medication (Isentress) 400 mg BID PO Last administered on 08:11; Admin Dose 400 MG; Start 07/10/16 at 09:00 Terbinafine HCl (Lamisil) 250 mg DAILY PO Last administered on 07/11/16 08:12 ; Admin Dose 250 MG; Start 07/10/16 at 09:00 Calcium/Vitamin D (Oyster Shell/ Vit-D (250/125)) 1 tab BID PO Last administered on 07/11/16 08:12; Admin Dose 1 TAB; Start 07/10/16 at 09:00 Morphine Sulfate 0.5 mg 0.5 mg Q3H PRN IV PAIN Last administered on 07/11/16 08:21; Admin Dose 0.5 MG; Start 07/10/16 at 19:00 Azithromycin 250 ml @ 250 mls/hr Q24H IVPB Last administered on 07/10/16 20: 22; Admin Dose 250 MLS/HR; Start 07/10/16 at 18:00 Piperacillin Sod/ Tazobactam Sod (Zosyn 3.375gm/ 100 ml (Pmx)) 100 ml @ 200 mls /hr Q8 IVPB ; Start 07/11/16 at 14:00; Status HAYDE CHAVES MD Jul 11, 2016 10:43
[2016-07-11] MEDS ORDERED: FUROSEMIDE 20 MG INJ IV SCH ×2 (11:00→18:00)
--- NOTE | 2016-07-11 12:59 | CONS ---
Date/Time of Note Date/Time of Note DATE: 07/11/16 TIME: 12:57 Assessment/Plan Assessment/Plan Additional Assessment/Plan Chest x-ray was reviewed from today which is showing marked improvement in bilateral it without infiltrates. Next Assessment recommendations; 1. Patient admitted with bilateral pneumonia possibly PCP however mild pulmonary edema and community acquired pneumonia cannot be ruled out. Clinically and radiologically markedly improved. 2. History of COPD. 3. Transgender, currently on hormonal replacement. 4. History of back surgery. 5. Prior history of PCP pneumonia in March of last year. Next Continue current treatment. Patient can transfer to the medical floor. Consultation Date/Type/Reason Admit Date/Time Jul 10, 2016 at 08:48 Initial Consult Date 07/10/16 Type of Consultation: Pulmonary/critical care 24 HR Interval Summary Free Text/Dictation Patient condition is markedly improved. She is completely awake and alert. Denies any shortness of breath, cough wheezing fever chills. Next regular exam ; middle aged transgender male currently in no distress. Awake and alert. Exam/Review of Systems Vital Signs Vitals Vital Signs Date Time Temp Pulse Resp B/P Pulse Ox O2 Delivery O2 Flow Rate FiO2 07/11/16 12:00 115 07/11/16 12:00 98.3 25 109/72 High Flow 07/11/16 10:00 95 07/11/16 09:33 100 07/10/16 23:00 15.0 Intake and Output 07/10/16 07/10/16 07/11/16 15:00 23:00 07:00 Intake Total 2050 ml 1846.8 ml 1158.4 ml Output Total 2700 ml 1800 ml 1230 ml Balance -650 ml 46.8 ml -71.6 ml Exam HEENT exam is; supple neck, no JVD. No lymphadenopathy. Midline trachea. No thyromegaly. Patient has fair dentition. Pupils are midsize reactive to light. No neck masses. Chest examination; diminished but clear breath sounds bilaterally. S1-S2 audible, no murmurs. Regular rhythm. Abdomen examination; soft, nontender. No organomegaly. Bowel is audible. Extremity examination; no peripheral edema. Pulses 2+ bilaterally. No clubbing. 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 Results Result Diagram: 07/11/16 0425 07/11/16 0425 Results 24 hrs Laboratory Tests Test 07/10/16 18:49 07/11/16 00:30 07/11/16 04:25 07/11/16 05:49 Creatine Kinase 81 Creatine Kinase Index 0.4 Creatinine Kinase MB (Mass) 0.29 Troponin I < 0.012 Blood Gas Specimen Source Blood arterial Arterial Blood Date Drawn 07/11/2016 12:25:19 AM Arterial Blood pH (Temp corrected) 7.338 L Arterial Blood pCO2 (Temp correct) 44.3 Arterial Blood pO2 (Temp corrected) 79.1 L Arterial Blood HCO3 23.3 Arterial Blood Base Excess -2.6 Arterial Blood Oxygen Saturation 94.5 L Abhi Test ACCEPTAB Arterial Blood Gas Puncture Site Right Radial Arterial Blood Carboxyhemoglobin 0 Arterial Blood Methemoglobin 0.4 Blood Gas A-a O2 Differential 589.6 H Oxyhemoglobin Percent 94.1 Total Hemoglobin 12.8 Blood Gas Temperature 37.0 Blood Gas Modality HFNC FiO2 100.0 Blood Gas Notified Whom [place] Blood Gas Notified Time 07/11/2016 12:35:26 AM White Blood Count 13.0 #H Red Blood Count 4.27 L Hemoglobin 11.6 L Hematocrit 35.9 L Mean Corpuscular Volume 84.1 Mean Corpuscular Hemoglobin 27.2 L Mean Corpuscular Hemoglobin Concent 32.3 Red Cell Distribution Width 17.2 H Platelet Count 269 Mean Platelet Volume 9.0 Neutrophils % 80.3 H Lymphocytes % 11.8 L Monocytes % 6.7 Eosinophils % 0.5 Basophils % 0.2 Nucleated Red Blood Cells % 0.0 Neutrophils # 10.5 H Lymphocytes # 1.5 Monocytes # 0.9 Eosinophils # 0.1 Basophils # 0.0 Nucleated Red Blood Cells # 0.0 Sodium Level 140 Potassium Level 3.7 Chloride Level 102 Carbon Dioxide Level 27 Anion Gap 15 Blood Urea Nitrogen 5 L Creatinine 0.62 Glucose Level 98 Calcium Level 8.3 L Phosphorus Level 4.5 Magnesium Level 2.3 Bedside Glucose 134 Medications Medications Current Medications Trimethoprim/ Sulfamethoxazole/ Dextrose (Bactrim/D5W) 538.4 ml @ 350 mls/hr Q6 IVPB Last administered on 07/11/16t 05:58; Admin Dose 350 MLS/HR; Start at 07:00 Ondansetron HCl (Zofran Inj) 4 mg Q6H PRN IV NAUSEA AND/OR VOMITING; Start at 09:00 Lorazepam (Ativan) 0.5 mg Q6H PRN IV agitation; Start 07/10/16 at 09:00 Apixaban (Eliquis) 5 mg BID PO Last administered on 07/11/16 08:11; Admin Dose 5 MG; Start 07/10/16 at 09:00 Emtricitabine/ Tenofovir (Truvada) 1 tab DAILY PO Last administered on 08:12; Admin Dose 1 TAB; Start 07/10/16 at 09:00 Ferrous Sulfate (Ferrous Sulfate (Ec)) 325 mg BID PO Last administered on 08:11; Admin Dose 325 MG; Start 07/10/16 at 09:00 Fluticasone Propionate (Flonase 0.05% Nasal) 1 spray BID NASAL Last administered on 07/11/16 08:11; Admin Dose 1 SPRAY; Start 07/10/16 at 09:00 Lisinopril (Zestril) 20 mg DAILY PO Last administered on 07/11/16 08:12; Admin Dose 20 MG; Start 07/10/16 at 09:00 Multivitamins Therapeutic (Theragran) 1 tab DAILY PO Last administered on 08:12; Admin Dose 1 TAB; Start 07/10/16 at 09:00 Olanzapine (Zyprexa) 20 mg DAILY PO Last administered on 07/11/16 08:13; Admin Dose 20 MG; Start 07/10/16 at 09:00 Miscellaneous Medication (Isentress) 400 mg BID PO Last administered on 08:11; Admin Dose 400 MG; Start 07/10/16 at 09:00 Terbinafine HCl (Lamisil) 250 mg DAILY PO Last administered on 07/11/16 08:12 ; Admin Dose 250 MG; Start 07/10/16 at 09:00 Calcium/Vitamin D 1 tab 1 tab BID PO Last administered on 07/11/16 08:12; Admin Dose 1 TAB; Start 07/10/16 at 09:00 Azithromycin 250 ml @ 250 mls/hr Q24H IVPB Last administered on 07/10/16 20: 22; Admin Dose 250 MLS/HR; Start 07/10/16 at 18:00 Piperacillin Sod/ Tazobactam Sod (Zosyn 3.375gm/ 100 ml (Pmx)) 100 ml @ 200 mls /hr Q8 IVPB ; Start 07/11/16 at 14:00 Famotidine (Pepcid) 20 mg BID PO ; Start 07/11/16 at 21:00 Morphine Sulfate (morphine) 1 mg Q3H PRN IV PAIN Last administered on t 11:21; Admin Dose 1 MG; Start 07/11/16 at 11:30 ELIANE SINGLETON Jul 11, 2016 12:59
[2016-07-11] MEDS ORDERED: morphine 2 MG INJ IV PRN (13:00)
[2016-07-11] MEDS: PIPER-TAZO 3.375 GM IV (PMX) 100 ML IVPB SCH ×2 (14:07→21:38)
--- NOTE | 2016-07-11 14:15 | CONS ---
Date/Time of Note Date/Time of Note DATE: 07/11/16 TIME: 11:23 Assessment/Plan Assessment/Plan Chief Complaint/Hosp Course Joanne is a pleasant HIV(+) Transgender M->F, PMHx Bi-polar stable, no longer on Estrogen steroids Tx due to hx DVT/PE 2014 admitted with: * HIV STATUS: Controlled HIV (+)Dx 1987 w/HIV RF: IVDU + "sex with my " * Denies hx of AIDS/OIs=> Compliant with daily ARV meds: Truvada + Isentress 400mg PO BID * Follows at [facility] with Dr. Lupe Schmidt: Most recent labs: 989 CD4 # w/Non-detected HIV VL * 01/2016 CD4# 932 w/CD4% 42% * NOTE: s/p HIV + HCV Co-Infection: Previous hepatitis C, status post treatment. 1. Acute hypoxic respiratory distress in setting of recurrent community acquired PNA + Pulmonary edema + COPD Emphysema exacerbation. * Started on Bactrim IV + Steroids for ED MD concern of PCP/PJC; nevertheless her evidence of controlled HIV infections per labs here [facility] back to 2014 + good historian data make this concern less likely 2. Sepsis w/Fever spike today 101.2, leukocytosis, tachycardia, elevated B/P, rising lactic acid to 1.8, LDH 1551 in setting #1 * Started on IV Steroids = expect WBC to rise * VSS, no hemodynamic compromise * Mild tachycardia post Albuterol noted 3. COPD Exacerbation: Predominately emphysema, denies hx of Asthma, (+) Bronchitis 4. Acute PNA process: Community acquired vs potential for Aspiration PNA * (+)ASP PNA Risk factors: (+)Opioids, (+)Hiatal hernia w/GERD, (+)COPD = SUSPECT SILENT ASPIRATION POSSIBILITY * Note: Recurrent admission for PNA ? Silent Aspiration playing a hidden role? * DOUBT PCP/PJP => No history of AIDS, denies hx of AIDS OI 5. Acute Pulmonary Edema=> CXR 07/11/16 IMPRESSION:Unchanged bilateral hazy opacities likely due to pulmonary edema. * Pulm edema in setting PNA * Possible Flash Pulmonary Edema component per (+)Cardiomegaly w/hx of HTN + tachycardia in ED =>2D ECHO Normal w/EF 65% 6. HTN 7. Hiatal hernia with reflux/hx of painful GERD -> Silent aspiration risk factor 8. 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 Painful BLEXT Peripheral Neuropathy * Suspect HIV + ARV medication related, in addition to possible DMT2 * Rx Lyrica outside provider helps 10. s/p Hormone Tx long-term w/hx of DVT, pulmonary embolism on Eliquis. * No longer on Hormone Rx per high risk status 11. Bipolar disorder = Stable, patient doing well, has daughter in her life, compliant w/medical Rx 12. Hx of L4-L5 fusion surgery (2008) with revision (2014) * Hx of infected hardware/Osteomyelitis 2015 hardware explanted. 13. Chronic pain issues: Lumbar back + BLEXT painful peripheral neuropathy, presumptively related to HIV + DMT2 * On Oxycodone + Lyrica per PAIN CLINIC: Community Providers for Chronic Back Pain on Opioids Rx: * [facility] ([facility]). Address. [address] [place] [address], [address]. [place] [address] ... 14. Hx of (+)PPD 2014 with NO evidence prior TB Dx -> s/p Rx for Latent TB w/ INH + B6 x ~3mos * Incomplete Rx for Latent TB Prophy => she stopped due to drug-drug interaction w/Oxycodone - "Made me feel high" 15. Splenic calcifications-> can be seen in Histoplasmosis; she denies travel outside [facility], Will check urine AG, Cocci serology . Problems: Additional Assessment/Plan 1. DC Bactrim => she is at risk acute nephropathy on Truvada + Lisinopril + Lasixs * DOUBT PCP/PJP => No history of AIDS, denies hx of AIDS OI, good historian * No reason to doubt her compliance, she successfully completed [facility] Rx and past CD4#/VL here [facility] are well-controlled 2. Sputum for bacterial C&S obtained -> sent to lab 3. Continue Azith + Zosyn for now 4. She is on lasixs for pulmonary edema 5. Expect WBC to rise prior to normalization due to initiation of IV steroids 6. Continue HHN Rtx + added Bed CPT w/RTx 7. Pain meds per primary MD: She is requesting Rx Lyrica for peripheral neuropathy 8. Send CD4# and HIV VL = confirm current HIV status 9. No indication to send opportunistic infection, STD screening at this time since she is followed by [facility]. * [facility] providers will have her history and annual screening on record. * No evidence that she is immune compromised at this time. 10. When pulmonary status improves; anticipate DC home w/Rx Levaquin vs Augmentin x5 days to OP HIV Clinic provider f/u. 11. OP management of possible silent aspiration in setting Opioids == Outside sleep study referral may benefit * Thank you for referring this delightful Transgender M->F patient back to " Massimo Castro MD" ID Consultation, providers are familiar w/this case and Dr. Castro has recommended if no evidence of AIDS, no indication to complete AIDS OI work-up while on inpatient status. . . Consultation Date/Type/Reason Admit Date/Time Date of Consultation: Jul 11, 2016 Type of Consultation: INFECTIOUS DISEASES Reason for Consultation Antibiotic and HIV ARV Medication Management Hx of Present Illness DR. CASTRO INITIAL CONSULTATION COMPLETED PRIOR ADMISSION=> Patient well-known to "Massimo Castro MD" Consultants Joanne is a 50 yo transgendered M->F, who is HIV(+) on ARV medications (Truvada + Isentress 400mg PO BID), initially seen by Dr. Castro in consult during JAN 2015 admission for acute respiratory distress where she was noted to have bilateral upper lobe pulmonary emboli and DVT post lumbar surgery hardware explant. Additionally, Dr. Castro has consulted on several subsequent admission for recurrent COPD exacerbations, community acquired pneumonia including JAN 2016 admission where her CD4# 16 was 932# w/non-detected HIV viral load. She stabilized on broad spectrum antibiotics and was discharged on Levaquin. She returned for admission to [facility] in MAR [address] Chest revealed emphysema, ground glass opacities, and bilateral axillary adenopathy. Dr. Castro was also consulted and the patient was treated for community acquired pneumonia with consideration of alternative etiologies including 1) Drug reaction; and 2) Infections including atypical pneumonia such as Pneumocystis. Again, the patient responded well to antibiotic Rx for community acquired pneumonia without fevers and normal WBC count she was treated with Azithromycin and Keflex discharged to follow up with her community HIV provider who presumably knows her full HIV history and current status. CURRENT OUTPATIENT PROVIDERS HIV Clinic: [facility]=> Lupe Schmidt MD Community Providers for Chronic Back Pain on Opioids Rx Oxycodone medications: * [facility] ([facility]). Address. [address] [place] [address] ... 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 Apparently, the event was preceded by progressive shortness of breath over several days. She reports to me that she had subjective fevers at home prior not recorded that "broke" and in the ED she denied fevers/chills/N/V/chest pain/pleuritic pain. She described a dry and nonproductive cough. Of note she is a chronic long-term tobacco user, with evidence of emphysema on MAR 2016 CT Chest, as well as diagnosis of asthma on shellfish meat separator operator records. Her HR in the field recorded at 128 BPM with elevated blood pressure of 158/100. The patient was started on Bactrim and steroids IV for concern true opportunistic PCP/PJC pneumonia, in addition to receiving a dose of Vancomycin IV, Cefepime IV in the ED. She is now seen in the ICU with Ceftriaxone (DC'd), Azithromycin, and Zosyn IV antibiotics onboard in addition to Bactrim IV + Steroids. * CURRENT HIV STATUS PER PATIENT: Most recent labs @ [facility] = 989 CD4# & Nondetected HIV VL * Current ARV meds: Truvada + Isentress 400mg po BID => (+)Daily compliance - "I don't miss my meds" * HIV Dx Date: 1987, Denies hx of AIDS/OIs, does note remember when ARV meds were started * NOTE: Hx of (+)PPD 2014 -> s/p INH + B6 x ~3mos which she stopped due to drug -drug interaction w/Oxycodone - "Made me feel high" * NOTE: Patient spiking fever @ 1430 today -> BCx x2, UA, Urine C&S, Sputum Cx ordered and in process Today's Lab Results Result Diagram: 07/11/1642407/11/16424 MICRO: Specimen: [id number] Status: Resulted Serg: 07/10/16 Rcvd: 07/10 Source: BLOOD Sp Descrip: Procedure Result Microbiology BLOOD CULTURE Preliminary NO GROWTH AFTER 1 DAY DIAGNOSTIC IMAGING: CXR: DOS: 07/10/16 0603 CLINICAL INDICATION: Shortness of breath. TECHNIQUE: Single frontal view of the chest was obtained. COMPARISON: 04/13/2016. FINDINGS: The cardiac silhouette is magnified. The aortic arch is unremarkable. There are hazy and patchy opacities bilaterally. There is no pneumothorax. IMPRESSION: Bilateral hazy and patchy opacities could represent pulmonary edema and/or multifocal pneumonia, increased compared with the prior study. CXR 07/11/16 CLINICAL INDICATION: Shortness of breath. TECHNIQUE: AP Portable chest. COMPARISON: 07/10/2016 FINDINGS: There is moderate cardiomegaly. Bilateral hazy pulmonary opacities are without definite change. The osseous structures are unremarkable. IMPRESSION: Unchanged bilateral hazy opacities likely due to pulmonary edema. 07/10/16 2D ECHOCARDIOGRAM Conclusions 1. Normal left ventricular systolic function. Normal left ventricular cavity size. Normal left ventricular wall thickness. Ejection fraction is visually estimated at 65 %. 2. Normal right ventricular size. Normal right ventricular systolic function. 3. The left atrium is normal in size. 4. The right atrium is normal in size. 5. No significant valvular stenosis or regurgitation seen. 6. Normal pericardium with no significant pericardial effusion. ````````````````````````````````````````````````````````` Constitutional: requiring IVF, requiring O2, No chills, No diaphoresis, No disoriented, No febrile Eyes: no complaints ENT: no complaints Respiratory: cough (thin sticky brown scant sputum ), shortness of breath, sputum, No pain, No pleuritic pain, No wheezing Cardiovascular: No chest pain, No lightheadedness, No no complaints, No orthopenea, No palpitations Gastrointestinal: decreased appetite, No blood, No diarrhea, No nausea, No no complaints, No pain, No vomiting Genitourinary: No discharge, No flank pain, No hematuria Musculoskeletal: back pain Skin: no complaints Neurologic: no complaints, No confusion, No dizziness, No focal-weakness, No headache, No seizure, No syncope Endocrine: other ((+)Borderline DM w/peripheral neuropathic pain) Lymphatic: other, No lymphadema, No tender nodes Psychological: nl mood/affect, no complaints Immunologic: immunodeficiency (Hx of HIV well controlled HIV CD4# recent 989 / Nondetected VL / compliant w/ARV meds / ) Past Medical History 1. HIV (+)Dx 1987, denies hx of AIDS/OIs=> Compliant with daily ARV meds: Truvada + Isentress 400mg PO BID * Follows at [facility] with Dr. Lupe Schmidt: Most recent labs: 989 CD4# w/Nondetected HIV VL * 01/2016 CD4# 932 w/CD4% 42% 2. s/p Hormone Tx long-term w/hx of DVT, pulmonary embolism on Eliquis. * No longer on Hormone Rx per high risk status 3. Bipolar disorder. 4. Hypertension. 5. History of staph pneumonia with a history of hemothorax. 6. L4-L5 fusion surgery with revision (2008 & 2014) * Hx of infected hardware/Osteomyelitis 2014 hardware explanted. 7. COPD Predominant Emphysema * Chronic tobacco user 8. Borderline DMT2 w/Peripheral Neuropathy 9. Hiatal hernia with reflux 10. Gastroesophageal reflux disease. 11. Previous hepatitis C, status post treatment. 12. Splenic calcifications 13. Hx of Otitis Media/Otitis Externa 2012 14 Chronic pain issues: Lumbar back + BLEXT painful peripheral neuropathy, presumptively related to HIV + DMT2 15. Hx of (+)PPD 2014 with NO evidence prior TB Dx -> s/p Rx for Latent TB w/ INH + B6 x ~3mos which she stopped due to drug-drug interaction w/Oxycodone - "Made me feel high" 16. Onychomycosis: Toenail(s) => On Lamisil po Past Surgical History Lumbar Back Surgery: Initial decompression w/hardware 2008 => Revision 2014 => Ineffective Hardware Removal Family History Significant Family History: other (Mother: (+)Lupus / Grandmother (+)HTN ) Social History Alcohol Use: none Smoking Status: Light tobacco smoker (Hx 1PPD x 40 years) Drug Use: none Exam/Review of Systems Vital Signs Vitals Vital Signs Date Time Temp Pulse Resp B/P Pulse Ox O2 Delivery O2 Flow Rate FiO2 07/11/16 10:00 114 36 121/82 95 High Flow 07/11/16 09:33 100 07/11/16 08:00 98.6 07/10/16 23:00 15.0 Intake and Output 07/10/16 07/10/16 07/11/16 15:00 23:00 07:00 Intake Total 2050 ml 1846.8 ml 1158.4 ml Output Total 2700 ml 1800 ml 1230 ml Balance -650 ml 46.8 ml -71.6 ml Exam Constitutional: alert, obese, oriented, well developed Psych: nl mood/affect, no complaints Head: atraumatic, normocephalic Eyes: EOMI, PERRL, nl conjunctiva, nl lids, nl sclera, No icteric ENMT: mucosa pink and moist, nl external ears & nose, nl lips & teeth, other (( +)Tongue piercing stud in place ) Neck: non-tender, supple, No nuchal rigidity Respiratory: clear to auscultation, congested cough, diminished breath sounds, normal air movement, other (Examined on supplemental oxygen via NC), No crackles/rales, No intercostal retraction, No wheezing Cardiovascular: regular rate and rhythm, No gallop, No irregular rhythm, No murmurs/extra sounds Gastrointestinal: non-tender, other (Obese), soft Genitourinary - Male: other (Deferred per patient request ) Musculoskeletal: muscle tone, nl extremities to inspection Extremities: palpable cord, No calf tenderness, No clubbing, No cyanosis, No edema Neurological: IMAGING ASSISTANT II-XII intact, nl mental status, nl speech, nl strength, No confused, No focal weakness Skin: ecchymosis, nl turgor, puncture, No diaphoresis, No laceration, No rash or lesions Lymph: nl lymph nodes Results Result Diagram: 07/11/165 07/11/16 0425 Results 24 hrs Laboratory Tests Test 07/10/16 18:49 07/11/16 00:30 07/11/16 04:25 07/11/16 05:49 Creatine Kinase 81 Creatine Kinase Index 0.4 Creatinine Kinase MB (Mass) 0.29 Troponin I < 0.012 Blood Gas Specimen Source Blood arterial Arterial Blood Date Drawn 07/11/2016 12:25:19 AM Arterial Blood pH (Temp corrected) 7.338 L Arterial Blood pCO2 (Temp correct) 44.3 Arterial Blood pO2 (Temp corrected) 79.1 L Arterial Blood HCO3 23.3 Arterial Blood Base Excess -2.6 Arterial Blood Oxygen Saturation 94.5 L Abhi Test ACCEPTAB Arterial Blood Gas Puncture Site Right Radial Arterial Blood Carboxyhemoglobin 0 Arterial Blood Methemoglobin 0.4 Blood Gas A-a O2 Differential 589.6 H Oxyhemoglobin Percent 94.1 Total Hemoglobin 12.8 Blood Gas Temperature 37.0 Blood Gas Modality HFNC FiO2 100.0 Blood Gas Notified Whom MA Blood Gas Notified Time 07/11/2016 12:35:26 AM White Blood Count 13.0 #H Red Blood Count 4.27 L Hemoglobin 11.6 L Hematocrit 35.9 L Mean Corpuscular Volume 84.1 Mean Corpuscular Hemoglobin 27.2 L Mean Corpuscular Hemoglobin Concent 32.3 Red Cell Distribution Width 17.2 H Platelet Count 269 Mean Platelet Volume 9.0 Neutrophils % 80.3 H Lymphocytes % 11.8 L Monocytes % 6.7 Eosinophils % 0.5 Basophils % 0.2 Nucleated Red Blood Cells % 0.0 Neutrophils # 10.5 H Lymphocytes # 1.5 Monocytes # 0.9 Eosinophils # 0.1 Basophils # 0.0 Nucleated Red Blood Cells # 0.0 Sodium Level 140 Potassium Level 3.7 Chloride Level 102 Carbon Dioxide Level 27 Anion Gap 15 Blood Urea Nitrogen 5 L Creatinine 0.62 Glucose Level 98 Calcium Level 8.3 L Phosphorus Level 4.5 Magnesium Level 2.3 Bedside Glucose 134 Medications Medications Current Medications Trimethoprim/ Sulfamethoxazole/ Dextrose (Bactrim/D5W) 538.4 ml @ 350 mls/hr Q6 IVPB Last administered on 07/11/16 05:58; Admin Dose 350 MLS/HR; Start at 07:00 Ondansetron HCl (Zofran Inj) 4 mg Q6H PRN IV NAUSEA AND/OR VOMITING; Start at 09:00 Lorazepam (Ativan) 0.5 mg Q6H PRN IV agitation; Start 07/10/16 at 09:00 Apixaban (Eliquis) 5 mg BID PO Last administered on 07/11/16 08:11; Admin Dose 5 MG; Start 07/10/16 at 09:00 Emtricitabine/ Tenofovir (Truvada) 1 tab DAILY PO Last administered on 08:12; Admin Dose 1 TAB; Start 07/10/16 at 09:00 Ferrous Sulfate (Ferrous Sulfate (Ec)) 325 mg BID PO Last administered on 08:11; Admin Dose 325 MG; Start 07/10/16 at 09:00 Fluticasone Propionate (Flonase 0.05% Nasal) 1 spray BID NASAL Last administered on 07/11/16 08:11; Admin Dose 1 SPRAY; Start 07/10/16 at 09:00 Lisinopril (Zestril) 20 mg DAILY PO Last administered on 07/11/16 08:12; Admin Dose 20 MG; Start 07/10/16 at 09:00 Multivitamins Therapeutic (Theragran) 1 tab DAILY PO Last administered on 08:12; Admin Dose 1 TAB; Start 07/10/16 at 09:00 Olanzapine (Zyprexa) 20 mg DAILY PO Last administered on 07/11/16 08:13; Admin Dose 20 MG; Start 07/10/16 at 09:00 Miscellaneous Medication (Isentress) 400 mg BID PO Last administered on 08:11; Admin Dose 400 MG; Start 07/10/16 at 09:00 Terbinafine HCl (Lamisil) 250 mg DAILY PO Last administered on 07/11/16 08:12 ; Admin Dose 250 MG; Start 07/10/16 at 09:00 Calcium/Vitamin D 1 tab 1 tab BID PO Last administered on 07/11/16 08:12; Admin Dose 1 TAB; Start 07/10/16 at 09:00 Azithromycin 250 ml @ 250 mls/hr Q24H IVPB Last administered on 07/10/16 20: 22; Admin Dose 250 MLS/HR; Start 07/10/16 at 18:00 Piperacillin Sod/ Tazobactam Sod (Zosyn 3.375gm/ 100 ml (Pmx)) 100 ml @ 200 mls /hr Q8 IVPB ; Start 07/11/16 at 14:00 Famotidine (Pepcid) 20 mg BID PO ; Start 07/11/16 at 21:00 Morphine Sulfate (morphine) 1 mg Q3H PRN IV PAIN Last administered on 11:21; Admin Dose 1 MG; Start 07/11/16 at 11:30 Copies To: CCDEANDRE COLLINS ELAINE NP Jul 11, 2016 11:33
[2016-07-11] MEDS: ACETAMINOPHEN 325 MG TAB PO PRN ×2 (15:20→23:18)
[2016-07-11] MEDS: AZITHROMYCIN 500MG/NS (PMX) 250 ML IVPB SCH (17:11)
[2016-07-11] MEDS: FUROSEMIDE 20 MG INJ IV SCH (17:11)
[2016-07-11 18:10] LABS: ADD UMIC YES; URINE BILIRUBIN (Dip) NEGATIVE (NEGATIVE); URINE BLOOD (Dip) TRACE (NEGATIVE); URINE COLOR LT. YELLOW (YELLOW); URINE KETONES (Dip) NEGATIVE (NEGATIVE); URINE LEUKOCYTE ESTERASE (Dip) NEGATIVE (NEGATIVE); URINE NITRITE (Dip) NEGATIVE (NEGATIVE); URINE TOTAL PROTEIN (Dip) NEGATIVE (NEGATIVE); URINE UROBILINOGEN (Dip) 0.2 E.U./dL (0.1-1.0)
[2016-07-11 18:48] LABS: URINE RBCS 0-2 /HPF (0)
[2016-07-11 18:51] LABS: BARBITURATES Negative (NEGATIVE); BENZODIAZEPINES Negative (NEGATIVE); CANNABINOIDS Positive (NEGATIVE); COCAINE Negative (NEGATIVE)
[2016-07-11 18:52] LABS: OPIATES Positive (NEGATIVE)
[2016-07-11] MEDS: FAMOTIDINE 20 MG TAB PO SCH (21:28)
[2016-07-12] VITALS (27 sets, daily range): BP systolic 103–126; BP diastolic 52–91; PULSE 102–121; RESP 26–58
[2016-07-12] MEDS: ALBUTEROL/IPRATROPIUM (NEB) 3 ML AMP HHN SCH ×6 (00:32→20:17)
[2016-07-12] MEDS: morphine 2 MG INJ IV PRN ×7 (02:02→20:51)
--- NOTE | 2016-07-12 03:59 | CONS ---
DATE OF ADMISSION: 07/10/2016 DATE OF CONSULTATION: HISTORY OF PRESENT ILLNESS: The patient is a 50-year-old -Citizen Of [place] a transgender phenotypic female who was admitted to the emergency room on 07/10/2016 with a chief complaint of a 5-day histor y of shortness of breath and cough productive of thin sticky brown sputum. On arrival, the patient had a temperature of 101.5, pulse 129, and respiration 26. The chest x-ray revealed bilateral lower lobe infiltrates. O2 saturation was in the 70s on room air. The patient initially was begun treat ment with IV Bactrim and steroids because it was thought he had a PCP because he has a history of ac quired immune deficiency syndrome; however, his case has been followed at the [facility] and his most recent CD4 count is 986, which he says was "yesterday." He was also begun treatment with intravenous cefepime and then Zosyn and Zithromax. He was also given Lasix for pulmonary edema. Th e patient was admitted to intensive care unit and his white count, which was originally 9300 on admi ssion, was 13,000 today. The patient generally feels better and has less respiratory symptoms and s hortness of breath. PAST MEDICAL HISTORY: Staphylococcal pneumonia and a history of pulmonary emboli from DVT 2014, his tory of chronic obstructive pulmonary disease and tobacco use, history of HIV disease with PCP as a presenting AIDS defining diagnosis. He has been cured of hepatitis C. Neurologically, he has histo ry of neuropathy. He is transgender and his DVT was associated with estrogen use. ALLERGIES: HE HAS NO KNOWN ALLERGIES. PAST SURGICAL HISTORY: His surgeries have consisted of L4-5 lumbar fusion complicated by postoperat elie infection. MEDICATIONS: 1. Famotidine 20 mg daily. 2. Apixaban 5 mg twice a day. 3. Truvada, which is a combination of tenofovir and emtricitabine and Isentress 400 mg daily with T ruvada being 1 tablet daily. 4. Fluticasone spray to nostril twice a day. 5. Lisinopril 20 mg daily. 6. Olanzapine 20 mg daily. 7. Terbinafine 250 mg daily. 8. Oyster shell calcium 1 tablet twice a day. REVIEW OF SYSTEMS: Essentially negative. PHYSICAL EXAMINATION GENERAL: Reveals a well-developed, somewhat obese transgender -Citizen Of [place] who is lying in bed with the head of bed elevated with oxygen cannula in place. HEENT: The pupils are constricted and react to light. Mouth has moist mucous membranes with the se cretion somewhat thickened. NECK: Supple. There is no jugular venous distention. CHEST: Clear. There are bilateral breaths. There is rhonchi at the junction of the upper and lowe r lobes and some wheezes in the lower lobes bilaterally. HEART: Rapid and regular. There is no gallop or murmur. ABDOMEN: Obese, soft and somewhat protuberant. No palpable organs, mass or tenderness. Bowel soun ds are only occasionally heard. EXTREMITIES: Reveal no edema or cyanosis. The patient's antibiotic treatment has been simplified to a Zithromax 500 mg daily, discontinuing Ba ctrim and cefepime and Zosyn. The patient is to continue on steroids and pulmonary bronchodilator t herapy. INITIAL IMPRESSION 1. Systemic inflammatory response. 2. Bilateral pneumonia, community-acquired. 3. Tobacco use. 4. Acquired immune deficiency syndrome, T cells 986. 5. 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 6. Cured hepatitis C. 7. History of deep venous thrombosis and pulmonary emboli due to estrogen. 8. Bipolar disorder. RECOMMENDATIONS: Continue present antibiotic treatment and supportive measures. Thank you for referring this patient to Dr. Joey Castro. Dictated By: Stefanie MCWILLIAMS/NTS Conf#: [id number] DID#: [id number] CC: DEANDRE MONTERROSO MD; JOEY CASTRO MD;*[facility]*
[2016-07-12 05:04] LABS: ADD SCAN DIFF NO
[2016-07-12 05:12] LABS: BASOPHIL # 0.1 10^3/ul (0.0-0.1); BASOPHILS % 0.4 % (0.0-2.0); EOSINOPHILS # 0.3 10^3/ul (0.0-0.5); EOSINOPHILS % 2.3 % (0.0-7.0); HEMOGLOBIN 12.8 g/dl (14.0-18.0); LYMPHOCYTES # 2.8 10^3/ul (0.8-2.9); LYMPHOCYTES % 20.3 % (15.0-51.0); MEAN CORPUSCULAR HEMOGLOBIN 26.7 pg (29.0-33.0); MEAN CORPUSCULAR VOLUME 83.3 fl (82.0-101.0); MEAN PLATELET VOLUME 9.2 fl (7.4-10.4); MONOCYTE # 0.7 10^3/ul (0.3-0.9); MONOCYTES % 5.1 % (0.0-11.0); NEUTROPHIL # 9.7 10^3/ul (1.6-7.5); NEUTROPHILS % 71.2 % (39.0-77.0); PLATELET COUNT 350 10^3/UL (140-415); RED CELL DISTRIBUTION WIDTH 16.9 % (11.5-14.5); WHITE BLOOD COUNT 13.6 10^3/ul (4.8-10.8)
[2016-07-12 05:21] LABS: POTASSIUM 4.3 mmol/L (3.5-5.1)
[2016-07-12 05:24] LABS: CREATININE 0.89 mg/dl (0.61-1.24)
[2016-07-12] MEDS: FUROSEMIDE 20 MG INJ IV SCH ×2 (06:45→17:42)
[2016-07-12] MEDS: PIPER-TAZO 3.375 GM IV (PMX) 100 ML IVPB SCH ×3 (06:45→22:11)
[2016-07-12] MEDS: RALTEGRAVIR 400 MG TAB PO SCH ×2 (08:09→20:51)
[2016-07-12] MEDS: FERROUS SULFATE (EC) 325 MG TAB PO SCH ×2 (08:09→20:51)
[2016-07-12] MEDS: APIXABAN 5 MG TABLET PO SCH ×2 (08:09→20:51)
[2016-07-12] MEDS: TERBINAFINE 250 MG TAB PO SCH (08:09)
[2016-07-12] MEDS: FLUTICASONE 0.05% 16 GM NAS SPRAY NASAL SCH ×2 (08:09→22:12)
[2016-07-12] MEDS: MULTIVITAMINS THERAPEUTIC TAB PO SCH (08:10)
[2016-07-12] MEDS: LISINOPRIL 20 MG TAB PO SCH (08:10)
[2016-07-12] MEDS: EMTRICITABINE/TENOFOVIR TAB PO SCH (08:10)
[2016-07-12] MEDS: OLANZAPINE 5 MG TAB PO SCH (08:10)
[2016-07-12] MEDS: FAMOTIDINE 20 MG TAB PO SCH ×2 (08:10→20:51)
[2016-07-12] MEDS: CALCIUM/VITAMIN D (250/125) TAB PO SCH ×2 (08:10→20:50)
--- NOTE | 2016-07-12 10:08 | CONS ---
Date/Time of Note Date/Time of Note DATE: 07/12/16 TIME: 10:05 Assessment/Plan Assessment/Plan Additional Assessment/Plan Assessment recommendations; 1. Patient admitted with bilateral pneumonia possibly PCP. 2. Transgender male. 3. COPD. 4. 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 5. History of back surgery. 5. History of DVT and PE. Next Obtain a chest x-ray. Will obtain a CTA of the chest as well to rule out PE. Continue Solu-Medrol at 40 mg every 6 hours. Continue current antibiotic regimen. Once x-ray is done I will review it and make further recommendations. Consultation Date/Type/Reason Admit Date/Time Jul 10, 2016 at 08:48 Initial Consult Date 07/10/16 Type of Consultation: Urinary/critical care 24 HR Interval Summary Free Text/Dictation Patient condition is stable but appears slightly more short of breath patient also has been complaining of slight increased shortness of breath compared to yesterday. Complains of cough with scant sputum production. Denies any wheezing, fever chills. General exam; middle aged transgender male, currently in no distress. Awake and alert. Exam/Review of Systems Vital Signs Vitals Vital Signs Date Time Temp Pulse Resp B/P Pulse Ox O2 Delivery O2 Flow Rate FiO2 07/12/16 09:43 96 100 07/12/16 09:43 120 35 Nasal Cannula 07/12/16 08:00 98.5 124/87 07/11/16 19:00 10.0 Intake and Output 07/11/16 07/11/16 07/12/16 15:00 23:00 07:00 Intake Total 340 ml 840 ml 200 ml Output Total 4020 ml 2410 ml 1150 ml Balance -3680 ml -1570 ml -950 ml Exam HEENT examination; supple neck, no JVD. No lymphadenopathy. Midline trachea. No thyromegaly. Pharynx is clear. No oral thrush. Dentition is fair. Chest examination; diminished but clear breath sounds bilaterally. S1-S2 audible, no murmurs. Regular rhythm. Abdomen examination; soft, nondistended. No organomegaly. Bowel sounds audible. Extremity examination; no peripheral edema. 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 Results Result Diagram: 07/12/16 0440 07/12/16 0440 Results 24 hrs Laboratory Tests Test 07/11/16 15:18 07/11/16 15:25 07/12/16 04:40 Urine Color LT. YELLOW Urine Clarity CLEAR Urine pH 7.0 Urine Specific [place] <=1.005 L Urine Ketones NEGATIVE Urine Nitrite NEGATIVE Urine Bilirubin NEGATIVE Urine Urobilinogen 0.2 E.U./dL Urine Leukocyte Esterase NEGATIVE Urine Microscopic RBC 0-2 Urine Microscopic WBC 0-2 Urine Hemoglobin TRACE Urine Glucose 0.1% H Urine Total Protein NEGATIVE Urine Opiates Screen Positive Urine Barbiturates Negative Urine Amphetamines Screen Negative Urine Benzodiazepines Screen Negative Urine Cocaine Screen Negative Urine Cannabinoids Positive Erythrocyte Sedimentation Rate 65 H C-Reactive Protein 20.0 H White Blood Count 13.6 H Red Blood Count 4.80 Hemoglobin 12.8 L Hematocrit 40.0 L Mean Corpuscular Volume 83.3 Mean Corpuscular Hemoglobin 26.7 L Mean Corpuscular Hemoglobin Concent 32.0 Red Cell Distribution Width 16.9 H Platelet Count 350 # Mean Platelet Volume 9.2 Neutrophils % 71.2 Lymphocytes % 20.3 Monocytes % 5.1 Eosinophils % 2.3 Basophils % 0.4 Nucleated Red Blood Cells % 0.0 Neutrophils # 9.7 H Lymphocytes # 2.8 Monocytes # 0.7 Eosinophils # 0.3 Basophils # 0.1 Nucleated Red Blood Cells # 0.0 Sodium Level 133 L Potassium Level 4.3 Chloride Level 96 L Carbon Dioxide Level 29 Anion Gap 12 Blood Urea Nitrogen 7 Creatinine 0.89 Glucose Level 101 Calcium Level 9.0 Medications Medications Current Medications Ondansetron HCl (Zofran Inj) 4 mg Q6H PRN IV NAUSEA AND/OR VOMITING; Start at 09:00 Lorazepam (Ativan) 0.5 mg Q6H PRN IV agitation; Start 07/10/16 at 09:00 Apixaban (Eliquis) 5 mg BID PO Last administered on 07/12/16 08:09; Admin Dose 5 MG; Start 07/10/16 at 09:00 Emtricitabine/ Tenofovir (Truvada) 1 tab DAILY PO Last administered on 08:10; Admin Dose 1 TAB; Start 07/10/16 at 09:00 Ferrous Sulfate (Ferrous Sulfate (Ec)) 325 mg BID PO Last administered on 08:09; Admin Dose 325 MG; Start 07/10/16 at 09:00 Fluticasone Propionate (Flonase 0.05% Nasal) 1 spray BID NASAL Last administered on 07/11/16 21:27; Admin Dose 1 SPRAY; Start 07/10/16 at 09:00 Lisinopril (Zestril) 20 mg DAILY PO Last administered on 07/12/16 08:10; Admin Dose 20 MG; Start 07/10/16 at 09:00 Multivitamins Therapeutic (Theragran) 1 tab DAILY PO Last administered on 08:10; Admin Dose 1 TAB; Start 07/10/16 at 09:00 Olanzapine (Zyprexa) 20 mg DAILY PO Last administered on 07/12/16 08:10; Admin Dose 20 MG; Start 07/10/16 at 09:00 Miscellaneous Medication (Isentress) 400 mg BID PO Last administered on 08:09; Admin Dose 400 MG; Start 07/10/16 at 09:00 Terbinafine HCl (Lamisil) 250 mg DAILY PO Last administered on 07/12/16 08:09 ; Admin Dose 250 MG; Start 07/10/16 at 09:00 Calcium/Vitamin D 1 tab 1 tab BID PO Last administered on 07/12/16 08:10; Admin Dose 1 TAB; Start 07/10/16 at 09:00 Azithromycin 250 ml @ 250 mls/hr Q24H IVPB Last administered on 07/11/16 17: 11; Admin Dose 250 MLS/HR; Start 07/10/16 at 18:00 Piperacillin Sod/ Tazobactam Sod (Zosyn 3.375gm/ 100 ml (Pmx)) 100 ml @ 200 mls /hr Q8 IVPB Last administered on 07/12/16 06:45; Admin Dose 200 MLS/HR; Start 07/11/16 at 14:00 Famotidine (Pepcid) 20 mg BID PO Last administered on 07/12/16 08:10; Admin Dose 20 MG; Start 07/11/16 at 21:00 Morphine Sulfate (morphine) 1 mg Q3H PRN IV PAIN Last administered on 08:11; Admin Dose 1 MG; Start 07/11/16 at 11:30 Acetaminophen (Tylenol Tab) 650 mg Q6H PRN PO PAIN AND OR ELEVATED TEMP Last administered on 07/11/16t 23:18; Admin Dose 650 MG; Start 07/11/16 at 14:30 ELIANE SINGLETON Jul 12, 2016 10:08
--- NOTE | 2016-07-12 10:30 | PN ---
Date/Time of Note Date/Time of Note DATE: 07/12/16 TIME: 10:27 Assessment/Plan VTE Prophylaxis VTE Prophylaxis Intervention: other Lines/Catheters [facility] Peripheral IV Urinary Cath still in place: No Assessment/Plan Chief Complaint/Hosp Course ASSESSMENT AND PLAN: 1. Pneumonia. The patient has been started on broad spectrum IV antibiotic , the neurologist has been consulted, we will follow their recommendation. 2. History of human immunodeficiency virus. Continue HAART therapy. 3. History of pulmonary embolism. Continue Eliquis. Repeat CTA of chest 4. Essential hypertension, well controlled on lisinopril. 5. Gastroesophageal reflux disease. Continue PPI. 6. History of bipolar disorder. Continue Zyprexa. We will continue to monitor patient closely. Further recommendations, management, and treatment as per clinical course. For DVT prophylaxis, on Eliquis. Problems: Subjective 24 Hr Interval Summary Free Text/Dictation Patient complains of having low back pain Denies of any chest pain Found to have tachypnea Denies of any shortness of breath Tolerating oral intake Exam/Review of Systems Vital Signs Vitals Vital Signs Date Time Temp Pulse Resp B/P Pulse Ox O2 Delivery O2 Flow Rate FiO2 07/12/16 10:00 120 50 115/87 96 07/12/16 09:43 100 07/12/16 09:43 Nasal Cannula 07/12/16 08:00 98.5 07/11/16 19:00 10.0 Intake and Output 07/11/16 07/11/16 07/12/16 15:00 23:00 07:00 Intake Total 340 ml 840 ml 200 ml Output Total 4020 ml 2410 ml 1150 ml Balance -3680 ml -1570 ml -950 ml Exam General: The patient is well-developed, Not in acute distress. HEENT: Atraumatic, normocephalic. The pupils are equal and round . Neck: Supple with full range of motion. Chest: Normal expansion of the thorax during inspiration Lungs: Clear to auscultation bilaterally, tachypneic Heart: Normal S1-S2, Regular rhythm and rate. Abdomen: Soft , nontender, nondistended , bowel sounds are present. Extremities: Normal to inspection, no edema no cyanosis Neurologic: Normal mental status,The patient is awake, alert and oriented . Results Result Diagram: 3/26/17 0440 3/26/17 0440 Results 24 hrs Laboratory Tests Test 07/11/16 15:18 07/11/16 15:25 07/12/16 04:40 Urine Color LT. YELLOW Urine Clarity CLEAR Urine pH 7.0 Urine Specific [place] <=1.005 L Urine Ketones NEGATIVE Urine Nitrite NEGATIVE Urine Bilirubin NEGATIVE Urine Urobilinogen 0.2 E.U./dL Urine Leukocyte Esterase NEGATIVE Urine Microscopic RBC 0-2 Urine Microscopic WBC 0-2 Urine Hemoglobin TRACE Urine Glucose 0.1% H Urine Total Protein NEGATIVE Urine Opiates Screen Positive Urine Barbiturates Negative Urine Amphetamines Screen Negative Urine Benzodiazepines Screen Negative Urine Cocaine Screen Negative Urine Cannabinoids Positive Erythrocyte Sedimentation Rate 65 H C-Reactive Protein 20.0 H White Blood Count 13.6 H Red Blood Count 4.80 Hemoglobin 12.8 L Hematocrit 40.0 L Mean Corpuscular Volume 83.3 Mean Corpuscular Hemoglobin 26.7 L Mean Corpuscular Hemoglobin Concent 32.0 Red Cell Distribution Width 16.9 H Platelet Count 350 # Mean Platelet Volume 9.2 Neutrophils % 71.2 Lymphocytes % 20.3 Monocytes % 5.1 Eosinophils % 2.3 Basophils % 0.4 Nucleated Red Blood Cells % 0.0 Neutrophils # 9.7 H Lymphocytes # 2.8 Monocytes # 0.7 Eosinophils # 0.3 Basophils # 0.1 Nucleated Red Blood Cells # 0.0 Sodium Level 133 L Potassium Level 4.3 Chloride Level 96 L Carbon Dioxide Level 29 Anion Gap 12 Blood Urea Nitrogen 7 Creatinine 0.89 Glucose Level 101 Calcium Level 9.0 Medications Medications Current Medications Ondansetron HCl (Zofran Inj) 4 mg Q6H PRN IV NAUSEA AND/OR VOMITING; Start at 09:00 Lorazepam (Ativan) 0.5 mg Q6H PRN IV agitation; Start 07/10/16 at 09:00 Apixaban (Eliquis) 5 mg BID PO Last administered on 07/12/16 08:09; Admin Dose 5 MG; Start 07/10/16 at 09:00 Emtricitabine/ Tenofovir (Truvada) 1 tab DAILY PO Last administered on 08:10; Admin Dose 1 TAB; Start 07/10/16 at 09:00 Ferrous Sulfate (Ferrous Sulfate (Ec)) 325 mg BID PO Last administered on 08:09; Admin Dose 325 MG; Start 07/10/16 at 09:00 Fluticasone Propionate (Flonase 0.05% Nasal) 1 spray BID NASAL Last administered on 07/11/16 21:27; Admin Dose 1 SPRAY; Start 07/10/16 at 09:00 Lisinopril (Zestril) 20 mg DAILY PO Last administered on 07/12/16 08:10; Admin Dose 20 MG; Start 07/10/16 at 09:00 Multivitamins Therapeutic (Theragran) 1 tab DAILY PO Last administered on 08:10; Admin Dose 1 TAB; Start 07/10/16 at 09:00 Olanzapine (Zyprexa) 20 mg DAILY PO Last administered on 07/12/16 08:10; Admin Dose 20 MG; Start 07/10/16 at 09:00 Miscellaneous Medication (Isentress) 400 mg BID PO Last administered on 08:09; Admin Dose 400 MG; Start 07/10/16 at 09:00 Terbinafine HCl (Lamisil) 250 mg DAILY PO Last administered on 07/12/16 08:09 ; Admin Dose 250 MG; Start 07/10/16 at 09:00 Calcium/Vitamin D 1 tab 1 tab BID PO Last administered on 07/12/16 08:10; Admin Dose 1 TAB; Start 07/10/16 at 09:00 Azithromycin 250 ml @ 250 mls/hr Q24H IVPB Last administered on 07/11/16 17: 11; Admin Dose 250 MLS/HR; Start 07/10/16 at 18:00 Piperacillin Sod/ Tazobactam Sod (Zosyn 3.375gm/ 100 ml (Pmx)) 100 ml @ 200 mls /hr Q8 IVPB Last administered on 07/12/16 06:45; Admin Dose 200 MLS/HR; Start 07/11/16 at 14:00 Famotidine (Pepcid) 20 mg BID PO Last administered on 07/12/16 08:10; Admin Dose 20 MG; Start 07/11/16 at 21:00 Morphine Sulfate (morphine) 1 mg Q3H PRN IV PAIN Last administered on 08:11; Admin Dose 1 MG; Start 3/25/17 at 11:30 Acetaminophen (Tylenol Tab) 650 mg Q6H PRN PO PAIN AND OR ELEVATED TEMP Last administered on 07/11/16t 23:18; Admin Dose 650 MG; Start 07/11/16 at 14:30 Methylprednisolone Sodium Succinate (Solu-Medrol) 40 mg Q6 IV ; Start 07/12/16 at 12:00 HAYDE OGDEN MD Jul 12, 2016 10:30
[2016-07-12] MEDS: METHYLPREDNISOLONE 40 MG INJ IV SCH ×2 (11:04→17:41)
[2016-07-12] MEDS ORDERED: SOD CHLORIDE 0.9% 100 ML ONE ×2 (11:08→20:56)
[2016-07-12] MEDS ORDERED: IOHEXOL 100 ML ONE (11:08)
[2016-07-12] MEDS ORDERED: GUAIFENESIN 20 MG/ML 5ML CUP PO PRN (17:00)
--- NOTE | 2016-07-12 17:05 | CONS ---
Date/Time of Note Date/Time of Note DATE: 07/12/16 TIME: 16:38 Assessment/Plan Assessment/Plan Chief Complaint/Hosp Course ID PROGRESS NOTE CURRENT ABX DAY #2 => Azith + Zosyn s/p Bactrim IV IV Steroids Solumedrol Result Diagram: 07/12/160 07/12/160 24H INTERVAL SUMMARY * Afebrile today after fevers spike yesterday >102.0, ESR 65 w/CRP 20, VSS, still w/difficult to expectorate thick sticky scant moreland-dark sputum * Note: scant blood tinged sputum while on Eliquis for hx of PE + severe forceful coughing fits = micro trauma = No TB per Dr. Vu * Will start Mucomyst per d/w RTx recommended for expectoration of scant sticky phlegm * Rx Robitussin Expectorant PRN added to assist w/cough * NOTEz: Quit tobacco this admission * Sputum growing STAPH Aureus ? JENN * Serg: 07/11/16-1315 Rcvd: 07/11/16-1700 Source: SPUTUM Sp Descrip: Microbiology GRAM STAIN Final POLYMORPH. LEUKOCYTE 1+ EPITHELIAL CELLS 1+ GRAM POS COCCI IN PAIRS 2+ RESPIRATORY CULTURE Preliminary Organism 1 STAPHYLOCOCCUS AUREUS QUANTITY 2+ ID ASSESSMENT 50yo HIV(+) Transgender M->F, PMHx (+)Tobacco, Bi-polar stable, no longer on Estrogen steroids Tx due to hx DVT/PE 2014 admitted with: 1. HIV STATUS: Controlled HIV (+)Dx 1987 w/HIV RF: IVDU + "sex with my " * Denies hx of AIDS/OIs=> Compliant with daily ARV meds: Truvada + Isentress 400mg PO BID * Follows at [facility] with Dr. Lupe Schmidt: Most recent labs: 989 CD4 # w/Non-detected HIV VL * 01/2016 CD4# 932 w/CD4% 42% 2. Acute hypoxic respiratory distress in setting of recurrent community acquired PNA + Pulmonary edema + COPD Emphysema exacerbation. * Started on Bactrim IV + Steroids for ED MD concern of PCP/PJC; nevertheless her evidence of controlled HIV infections per labs here [facility] back to 2015 + good historian data make this concern less likely 3. Sepsis w/Fever spike today 101.2, leukocytosis, tachycardia, elevated B/P, rising lactic acid to 1.8, LDH 1551 in setting #1 * Started on IV Steroids = expect WBC to rise * VSS, no hemodynamic compromise * Mild tachycardia post Albuterol noted 4. COPD Exacerbation: Predominately emphysema + (+)Bronchitis ( denies hx of Asthma/no wheezing) * Scant thick moreland-brown sticky BRONCHIAL secretions difficult to expectorate => severe coughing fits * Quit tobacco this admission 5. Acute PNA process: Community acquired vs potential for Aspiration PNA * 07/11/16 SPUTUM CX: (+)RESPIRATORY CULTURE Preliminary Organism 1 STAPHYLOCOCCUS AUREUS QUANTITY 2+ * (+)ASP PNA Risk factors: (+)Opioids, (+)Hiatal hernia w/GERD, (+)COPD = SUSPECT SILENT ASPIRATION POSSIBILITY * Note: Recurrent admission for PNA ? Silent Aspiration playing a hidden role? * DOUBT PCP/PJP => No history of AIDS, denies hx of AIDS OI 6. Acute Pulmonary Edema=> CXR 07/11/16 IMPRESSION:Unchanged bilateral hazy opacities likely due to pulmonary edema. * Pulm edema in setting PNA * Possible Flash Pulmonary Edema component per (+)Cardiomegaly w/hx of HTN + tachycardia in ED =>2D ECHO Normal w/EF 65% 7. Hiatal hernia with reflux/hx of painful GERD -> Silent aspiration risk factor 8. 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 Painful BLEXT Peripheral Neuropathy * Suspect HIV + ARV medication related, in addition to possible DMT2 * Rx Lyrica outside provider helps 10. HTN 11. Bipolar disorder = Stable, patient doing well, has daughter in her life, compliant w/medical Rx 12. Hx of L4-L5 fusion surgery (2008) with revision (2014) * Hx of infected hardware/Osteomyelitis 2015 hardware explanted. 13. Chronic pain issues: Lumbar back + BLEXT painful peripheral neuropathy, presumptively related to HIV + DMT2 * On Oxycodone + Lyrica per PAIN CLINIC: Community Providers for Chronic Back Pain on Opioids Rx: * [facility] ([facility] Address. [address] [place] [address]., [address]. [place] [address] ... 14. s/p Hormone Tx long-term w/hx of DVT, pulmonary embolism on Eliquis. * No longer on Hormone Rx per high risk status 15. Hx of (+)PPD 2014 with NO evidence prior TB Dx -> s/p Rx for Latent TB w/ INH + B6 x ~3mos * Incomplete Rx for Latent TB Prophy => she stopped due to drug-drug interaction w/Oxycodone - "Made me feel high" 16. Splenic calcifications-> can be seen in Histoplasmosis; she denies travel outside [facility], Will check urine AG, Cocci serology 17. Cured Hepatitis C -> Previous hepatitis C, status post treatment. (-)MRSA Nares Screen INVASIVES: PIV ABX ALLERGIES: KNDA CURRENT ARV MEDS FOR HIV: Truvada + Isentress 400mg PO BID CURRENT ABX: Day #2 => Azith + Zosyn + IV Solumedrol s/p Bactrim ID RECOMMENDATIONS 1. Continue current ABX 2. Bactrim DC'd due to low suspicion for PCP/PJC as HIV is controlled 3. F/U on Staph Aureus final ID and C&S taper ABX per results ?JENN vs ?MRSA 4. Smoking cessation strongly advocated 5. Continue RTx and CPT per bed mode to assist w/sputum expectoration 6. Note: scant blood tinged sputum while on Eliquis for hx of PE + severe forceful coughing fits = micro trauma = No TB per Dr. Vu * RX: Robitussin expectorant/mucolytic PRN to thin secretions + Hydration . Problems: Consultation Date/Type/Reason Admit Date/Time Jul 10, 2016 at 08:48 Initial Consult Date 07/11/16 Type of Consultation: ID Exam/Review of Systems Vital Signs Vitals Vital Signs Date Time Temp Pulse Resp B/P Pulse Ox O2 Delivery O2 Flow Rate FiO2 07/12/16 16:20 108 07/12/16 16:00 98.8 115/76 92 07/12/16 14:17 100 07/12/16 14:17 32 Nasal Cannula 07/11/16 19:00 10.0 Intake and Output 07/11/16 07/11/16 07/12/16 14:59 22:59 06:59 Intake Total 160 ml 1020 ml 200 ml Output Total 3410 ml 3020 ml 1150 ml Balance -3250 ml -2000 ml -950 ml Exam Constitutional: distress, obese, oriented, well developed Psych: nl mood/affect, no complaints Head: atraumatic, normocephalic Eyes: PERRL, nl conjunctiva, nl sclera ENMT: mucosa pink and moist, nl external ears & nose, other (Tongue stud piercing ) Neck: non-tender, supple Respiratory: congested cough, diminished breath sounds, normal air movement, other (Supplemental O2 via NC), No labored breathing, No wheezing Cardiovascular: regular rate and rhythm Gastrointestinal: non-tender, soft Genitourinary - Male: other (Deferred T-G M->F ) Musculoskeletal: muscle tone, nl extremities to inspection, range of motion Extremities: other (Dry plantar surfaces of feet), tenderness, No clubbing, No cyanosis, No edema Neurological: SILL WORKER II-XII intact, nl mental status, nl speech, nl strength, No confused, No focal weakness Skin: nl turgor, other, No diaphoresis, No rash or lesions Results Result Diagram: 07/12/160 07/12/160 Results 24 hrs Laboratory Tests Test 07/12/16 04:40 White Blood Count 13.6 H Red Blood Count 4.80 Hemoglobin 12.8 L Hematocrit 40.0 L Mean Corpuscular Volume 83.3 Mean Corpuscular Hemoglobin 26.7 L Mean Corpuscular Hemoglobin Concent 32.0 Red Cell Distribution Width 16.9 H Platelet Count 350 # Mean Platelet Volume 9.2 Neutrophils % 71.2 Lymphocytes % 20.3 Monocytes % 5.1 Eosinophils % 2.3 Basophils % 0.4 Nucleated Red Blood Cells % 0.0 Neutrophils # 9.7 H Lymphocytes # 2.8 Monocytes # 0.7 Eosinophils # 0.3 Basophils # 0.1 Nucleated Red Blood Cells # 0.0 Sodium Level 133 L Potassium Level 4.3 Chloride Level 96 L Carbon Dioxide Level 29 Anion Gap 12 Blood Urea Nitrogen 7 Creatinine 0.89 Glucose Level 101 Calcium Level 9.0 Medications Medications Current Medications Ondansetron HCl (Zofran Inj) 4 mg Q6H PRN IV NAUSEA AND/OR VOMITING; Start at 09:00 Lorazepam (Ativan) 0.5 mg Q6H PRN IV agitation; Start 07/10/16 at 09:00 Apixaban (Eliquis) 5 mg BID PO Last administered on 07/12/16 08:09; Admin Dose 5 MG; Start 07/10/16 at 09:00 Emtricitabine/ Tenofovir (Truvada) 1 tab DAILY PO Last administered on 08:10; Admin Dose 1 TAB; Start 07/10/16 at 09:00 Ferrous Sulfate (Ferrous Sulfate (Ec)) 325 mg BID PO Last administered on 08:09; Admin Dose 325 MG; Start 07/10/16 at 09:00 Fluticasone Propionate (Flonase 0.05% Nasal) 1 spray BID NASAL Last administered on 07/11/16 21:27; Admin Dose 1 SPRAY; Start 07/10/16 at 09:00 Lisinopril (Zestril) 20 mg DAILY PO Last administered on 07/12/16 08:10; Admin Dose 20 MG; Start 07/10/16 at 09:00 Multivitamins Therapeutic (Theragran) 1 tab DAILY PO Last administered on 08:10; Admin Dose 1 TAB; Start 07/10/16 at 09:00 Olanzapine (Zyprexa) 20 mg DAILY PO Last administered on 07/12/16 08:10; Admin Dose 20 MG; Start 07/10/16 at 09:00 Miscellaneous Medication (Isentress) 400 mg BID PO Last administered on 08:09; Admin Dose 400 MG; Start 07/10/16 at 09:00 Terbinafine HCl (Lamisil) 250 mg DAILY PO Last administered on 07/12/16 08:09 ; Admin Dose 250 MG; Start 07/10/16 at 09:00 Calcium/Vitamin D 1 tab 1 tab BID PO Last administered on 07/12/16 08:10; Admin Dose 1 TAB; Start 07/10/16 at 09:00 Azithromycin 250 ml @ 250 mls/hr Q24H IVPB Last administered on 07/11/16 17: 11; Admin Dose 250 MLS/HR; Start 07/10/16 at 18:00 Piperacillin Sod/ Tazobactam Sod (Zosyn 3.375gm/ 100 ml (Pmx)) 100 ml @ 200 mls /hr Q8 IVPB Last administered on 07/12/16 13:35; Admin Dose 200 MLS/HR; Start 07/11/16 at 14:00 Famotidine (Pepcid) 20 mg BID PO Last administered on 07/12/16 08:10; Admin Dose 20 MG; Start 07/11/16 at 21:00 Morphine Sulfate (morphine) 1 mg Q3H PRN IV PAIN Last administered on 08:11; Admin Dose 1 MG; Start 07/11/16 at 11:30 Acetaminophen (Tylenol Tab) 650 mg Q6H PRN PO PAIN AND OR ELEVATED TEMP Last administered on 07/11/16 23:18; Admin Dose 650 MG; Start 07/11/16 at 14:30 Methylprednisolone Sodium Succinate (Solu-Medrol) 40 mg Q6 IV Last administered on 07/12/16 11:04; Admin Dose 40 MG; Start 07/12/16 at 12:00 Morphine Sulfate (morphine) 2 mg Q3H PRN IV PAIN Last administered on 11:07; Admin Dose 2 MG; Start 07/12/16 at 11:00 AGAPITO CASTELLANOS NP Jul 12, 2016 16:48
[2016-07-12] MEDS: ACETYLCYSTEINE 20% 4 ML VIAL NEB SCH ×2 (17:30→20:16)
[2016-07-12] MEDS: AZITHROMYCIN 500MG/NS (PMX) 250 ML IVPB SCH (17:42)
[2016-07-12 17:53] LABS: ADD UMIC NO; URINE BILIRUBIN (Dip) NEGATIVE (NEGATIVE); URINE BLOOD (Dip) NEGATIVE (NEGATIVE); URINE COLOR LT. YELLOW (YELLOW); URINE GLUCOSE (Dip) NEGATIVE (NEGATIVE); URINE KETONES (Dip) NEGATIVE (NEGATIVE); URINE LEUKOCYTE ESTERASE (Dip) NEGATIVE (NEGATIVE); URINE NITRITE (Dip) NEGATIVE (NEGATIVE); URINE TOTAL PROTEIN (Dip) NEGATIVE (NEGATIVE); URINE UROBILINOGEN (Dip) 0.2 E.U./dL (0.1-1.0)
--- NOTE | 2016-07-12 18:39 | RADRPT ---
PROCEDURE: XR Chest. CLINICAL INDICATION: Pulmonary edema TECHNIQUE: Single frontal chest x-ray. COMPARISON: 07/11/2016 FINDINGS: There is increased patchy interstitial and airspace disease seen in the lungs bilaterally as well as pulmonary vascular congestion. The cardiac silhouette is enlarged. The aorta is within normal sullivan its. No evidence for pneumothorax. The osseous structures are unchanged IMPRESSION: 1. Worsened bilateral interstitial airspace opacities reflecting pulmonary edema or multifocal pneu monia. RPTAT: QQ .Ernesto Tobias MD, MD Date Time Electronically viewed and signed by .Ernesto Tobias MD, MD on 07/12/2016 18:39 .d/
[2016-07-12] MEDS ORDERED: ACETYLCYSTEINE 20% 4 ML VIAL NEB SCH (20:00)
[2016-07-12] MEDS ORDERED: IODIXANOL LOCM 100 ML BTL ONE (20:56)
[2016-07-12] MEDS ORDERED: AMITRIPTYLINE 50 MG TAB PO SCH (21:00)
[2016-07-12] MEDS ORDERED: OLANZAPINE 5 MG TAB PO SCH (21:00)
--- NOTE | 2016-07-12 21:50 | RADRPT ---
PROCEDURE: CT Pulmonary Angiogram CLINICAL INDICATION: Tachypnea with history of PE TECHNIQUE: Volumetric acquisition of the thorax was performed following the intravenous administra tion of contrast with the bolus of contrast time to maximize pulmonary artery opacification. One or more of the following dose reduction techniques were used: - Automated exposure control. - Adjustment of the mA and/or kV according to patient size. - Use of iterative reconstruction technique. Radiation Dose: CTDI = 49.29 mGy; DLP = 859.01 mGy-cm. COMPARISON: 04/13/2016. FINDINGS: Pulmonary Arteries: There is no intrinsic filling defect seen within the pulmonary arteries to sugge st pulmonary embolization. Other cardiovascular structures: The heart is normal in size. The aorta appears intact and normal i n caliber. Lung sethi: Extensive diffuse ground-glass infiltrates are seen through the lung sethi. No alveol ar infiltrate or nodule is identified. Several blebs are seen within the periphery of the upper lob es bilaterally the largest seen anterior medially on the left measuring 2 cm in maximal diameter. The pleural spaces: No effusion or pneumothorax is identified. Lymph nodes: There is a 1 cm in short diameter AP window node. There is a 1 cm in short diameter ri ght hilar node. Thyroid: Unremarkable. Superior abdominal structures: No significant abnormality is evident. Osseous structures: Degenerative endplate changes are evident within the spine most prominent within the inferior cervical region. IMPRESSION: 1. There is improved opacification of the pulmonary arteries since the previous study of 04/13/2016 and no intrinsic filling defects are evident to suggest pulmonary embolization. 2. The remaining cardiovascular structures appear stable and unremarkable. 3. There is been considerable interval worsening of the now more diffuse and more ground-glass infi ltrates seen throughout both lung sethi. Differential possibilities include an infectious process, usually opportunistic, chronic interstitial diseases, acute alveolar diseases, drug toxicity, edema , and lepidic proliferation of neoplasm. A few blebs are also again evident. 4. No effusion or pneumothorax is identified. 5. 1 cm in short diameter AP noted 1 cm in short diameter right hilar node, unchanged. Findings of worsening diffuse ground glass infiltrates were telephoned by Jermaine Butt MD to Dr. Rincon on 07/12/2016 at 2145 hours. Dajuan Butt Physician Date Time Electronically viewed and signed by Dajuan Butt Physician on 07/12/2016 21:50 RH/
[2016-07-12] MEDS: AMITRIPTYLINE 25 MG TAB PO SCH (23:00)
[2016-07-13] VITALS (21 sets, daily range): BP systolic 95–136; BP diastolic 59–95; PULSE 93–109; RESP 15–40
[2016-07-13] MEDS: METHYLPREDNISOLONE 40 MG INJ IV SCH ×4 (00:34→18:10)
[2016-07-13] MEDS: morphine 2 MG INJ IV PRN ×6 (01:39→21:17)
[2016-07-13] MEDS: ALBUTEROL/IPRATROPIUM (NEB) 3 ML AMP HHN SCH ×6 (01:45→20:02)
[2016-07-13] MEDS: ACETYLCYSTEINE 20% 4 ML VIAL NEB SCH ×4 (01:45→20:02)
[2016-07-13] MEDS: FUROSEMIDE 20 MG INJ IV SCH ×2 (05:51→18:10)
[2016-07-13] MEDS: PIPER-TAZO 3.375 GM IV (PMX) 100 ML IVPB SCH ×3 (05:52→21:17)
[2016-07-13 06:33] LABS: ADD SCAN DIFF NO
[2016-07-13 06:37] LABS: BASOPHILS % 0.1 % (0.0-2.0); EOSINOPHILS % 0.1 % (0.0-7.0); HEMATOCRIT 38.5 % (42.0-52.0); HEMOGLOBIN 12.4 g/dl (14.0-18.0); LYMPHOCYTES % 8.9 % (15.0-51.0); MEAN CORPUSCULAR HGB CONC 32.2 g/dl (32.0-37.0); MEAN CORPUSCULAR VOLUME 83.7 fl (82.0-101.0); MEAN PLATELET VOLUME 9.2 fl (7.4-10.4); MONOCYTE # 0.6 10^3/ul (0.3-0.9); NEUTROPHILS % 85.1 % (39.0-77.0); PLATELET COUNT 324 10^3/UL (140-415); RED CELL DISTRIBUTION WIDTH 16.8 % (11.5-14.5); WHITE BLOOD COUNT 11.7 10^3/ul (4.8-10.8)
[2016-07-13 07:00] LABS: POTASSIUM 4.5 mmol/L (3.5-5.1)
[2016-07-13 07:03] LABS: CREATININE 0.75 mg/dl (0.61-1.24)
[2016-07-13 07:04] LABS: CALCIUM 9.4 mg/dl (8.4-10.2)
[2016-07-13] MEDS: FERROUS SULFATE (EC) 325 MG TAB PO SCH ×2 (08:39→21:15)
[2016-07-13] MEDS: FLUTICASONE 0.05% 16 GM NAS SPRAY NASAL SCH ×2 (08:39→21:16)
[2016-07-13] MEDS: APIXABAN 5 MG TABLET PO SCH ×2 (08:39→21:15)
[2016-07-13] MEDS: LISINOPRIL 20 MG TAB PO SCH (08:39)
[2016-07-13] MEDS: FAMOTIDINE 20 MG TAB PO SCH ×2 (08:40→21:15)
[2016-07-13] MEDS: EMTRICITABINE/TENOFOVIR TAB PO SCH (08:40)
[2016-07-13] MEDS: MULTIVITAMINS THERAPEUTIC TAB PO SCH (08:40)
[2016-07-13] MEDS: CALCIUM/VITAMIN D (250/125) TAB PO SCH ×2 (08:40→21:15)
[2016-07-13] MEDS: TERBINAFINE 250 MG TAB PO SCH (08:40)
[2016-07-13] MEDS: RALTEGRAVIR 400 MG TAB PO SCH ×2 (08:40→21:14)
--- NOTE | 2016-07-13 10:34 | PN ---
Date/Time of Note Date/Time of Note DATE: 07/13/16 TIME: 10:31 Assessment/Plan VTE Prophylaxis VTE Prophylaxis Intervention: heparin Lines/Catheters IV [facility] Type [facility] Peripheral IV Urinary Cath still in place: No Assessment/Plan Chief Complaint/Hosp Course ASSESSMENT AND PLAN: 1. Pneumonia. The patient has been started on broad spectrum IV antibiotic , the sales support administrator has been consulted, we will follow their recommendation. 2. History of human immunodeficiency virus. Continue HAART therapy. Infectious disease doctor has been consulted 3. History of pulmonary embolism. Continue Eliquis. No evidence of PE on CT of the chest 4. Essential hypertension, well controlled on lisinopril. 5. Gastroesophageal reflux disease. Continue PPI. 6. History of bipolar disorder. Continue Zyprexa. 7. Acute respiratory distress. Likely secondary to pneumonia, pulmonary edema. Continue IV antibiotics and diuretics We will continue to monitor patient closely. Further recommendations, management, and treatment as per clinical course. For DVT prophylaxis, on Eliquis. Problems: Subjective 24 Hr Interval Summary Free Text/Dictation Denies of any chest pain Improvement in breathing status Tolerating oral intake On high flow via nasal cannula at 10 L Exam/Review of Systems Vital Signs Vitals Vital Signs Date Time Temp Pulse Resp B/P Pulse Ox O2 Delivery O2 Flow Rate FiO2 07/13/16 10:15 100 20 Nasal Cannula 100 07/13/16 10:01 95 07/13/16 06:00 107/73 07/13/16 04:00 98.0 07/11/16 19:00 10.0 Intake and Output 07/12/16 07/12/16 07/13/16 15:00 23:00 07:00 Intake Total 640 ml 200 ml 200 ml Output Total 1810 ml 700 ml 300 ml Balance -1170 ml -500 ml -100 ml Exam General: The patient is morbidly obese, Not in acute distress. HEENT: Atraumatic, normocephalic. The pupils are equal and round . Neck: Supple with full range of motion. Chest: Normal expansion of the thorax during inspiration Lungs: Decreased breath sounds bilateral lower lung field Heart: Normal S1-S2, Regular rhythm and rate. Abdomen: Soft , nontender, nondistended , bowel sounds are present. Extremities: Normal to inspection, no edema no cyanosis Neurologic: Normal mental status,The patient is awake, alert and oriented . Results Result Diagram: 3/27/17 0530 07/13/16 0530 Results 24 hrs Laboratory Tests Test 07/12/16 12:55 07/13/16 05:30 Urine Color LT. YELLOW Urine Clarity CLEAR Urine pH 6.5 Urine Specific [place] <=1.005 L Urine Ketones NEGATIVE Urine Nitrite NEGATIVE Urine Bilirubin NEGATIVE Urine Urobilinogen 0.2 E.U./dL Urine Leukocyte Esterase NEGATIVE Urine Hemoglobin NEGATIVE Urine Glucose NEGATIVE Urine Total Protein NEGATIVE White Blood Count 11.7 H Red Blood Count 4.60 L Hemoglobin 12.4 L Hematocrit 38.5 L Mean Corpuscular Volume 83.7 Mean Corpuscular Hemoglobin 27.0 L Mean Corpuscular Hemoglobin Concent 32.2 Red Cell Distribution Width 16.8 H Platelet Count 324 Mean Platelet Volume 9.2 Neutrophils % 85.1 H Lymphocytes % 8.9 L Monocytes % 5.0 Eosinophils % 0.1 Basophils % 0.1 Nucleated Red Blood Cells % 0.0 Neutrophils # 10.0 H Lymphocytes # 1.0 Monocytes # 0.6 Eosinophils # 0.0 Basophils # 0.0 Nucleated Red Blood Cells # 0.0 Sodium Level 137 Potassium Level 4.5 Chloride Level 98 Carbon Dioxide Level 30 Anion Gap 14 Blood Urea Nitrogen 14 Creatinine 0.75 Glucose Level 143 # Calcium Level 9.4 Medications Medications Current Medications Ondansetron HCl (Zofran Inj) 4 mg Q6H PRN IV NAUSEA AND/OR VOMITING; Start at 09:00 Lorazepam (Ativan) 0.5 mg Q6H PRN IV agitation; Start 07/10/16 at 09:00 Apixaban (Eliquis) 5 mg BID PO Last administered on 07/13/16 08:39; Admin Dose 5 MG; Start 07/10/16 at 09:00 Emtricitabine/ Tenofovir (Truvada) 1 tab DAILY PO Last administered on 08:40; Admin Dose 1 TAB; Start 07/10/16 at 09:00 Ferrous Sulfate (Ferrous Sulfate (Ec)) 325 mg BID PO Last administered on 08:39; Admin Dose 325 MG; Start 07/10/16 at 09:00 Fluticasone Propionate (Flonase 0.05% Nasal) 1 spray BID NASAL Last administered on 07/13/16 08:39; Admin Dose 1 SPRAY; Start 07/10/16 at 09:00 Lisinopril (Zestril) 20 mg DAILY PO Last administered on 07/13/16 08:39; Admin Dose 20 MG; Start 07/10/16 at 09:00 Multivitamins Therapeutic (Theragran) 1 tab DAILY PO Last administered on 08:40; Admin Dose 1 TAB; Start 07/10/16 at 09:00 Miscellaneous Medication (Isentress) 400 mg BID PO Last administered on 08:40; Admin Dose 400 MG; Start 07/10/16 at 09:00 Terbinafine HCl (Lamisil) 250 mg DAILY PO Last administered on 07/13/16 08:40 ; Admin Dose 250 MG; Start 07/10/16 at 09:00 Calcium/Vitamin D 1 tab 1 tab BID PO Last administered on 07/13/16 08:40; Admin Dose 1 TAB; Start 07/10/16 at 09:00 Azithromycin 250 ml @ 250 mls/hr Q24H IVPB Last administered on 07/12/16 17: 42; Admin Dose 250 MLS/HR; Start 07/10/16 at 18:00 Piperacillin Sod/ Tazobactam Sod (Zosyn 3.375gm/ 100 ml (Pmx)) 100 ml @ 200 mls /hr Q8 IVPB Last administered on 07/13/16 05:52; Admin Dose 200 MLS/HR; Start 07/11/16 at 14:00 Famotidine (Pepcid) 20 mg BID PO Last administered on 07/13/16 08:40; Admin Dose 20 MG; Start 07/11/16 at 21:00 Morphine Sulfate (morphine) 1 mg Q3H PRN IV PAIN Last administered on 06:04; Admin Dose 1 MG; Start 07/11/16 at 11:30 Acetaminophen (Tylenol Tab) 650 mg Q6H PRN PO PAIN AND OR ELEVATED TEMP Last administered on 07/11/16 23:18; Admin Dose 650 MG; Start 07/11/16 at 14:30 Methylprednisolone Sodium Succinate (Solu-Medrol) 40 mg Q6 IV Last administered on 07/13/16 05:51; Admin Dose 40 MG; Start 07/12/16 at 12:00 Morphine Sulfate (morphine) 2 mg Q3H PRN IV PAIN Last administered on t 09:02; Admin Dose 2 MG; Start 07/12/16 at 11:00 Guaifenesin (Robitussin Liquid Cup) 200 mg Q4H PRN PO COUGH; Start 07/12/16 at 17:00 Amitriptyline HCl (Elavil) 100 mg HS PO ; Start 07/12/16 at 23:00 Olanzapine (Zyprexa) 20 mg HS PO ; Start 07/13/16 at 21:00 HAYDE OGDEN MD Jul 13, 2016 10:34
--- NOTE | 2016-07-13 11:05 | CONS ---
Date/Time of Note Date/Time of Note DATE: 07/13/16 TIME: 11:02 Consult Date/Type/Reason Admit Date/Time Jul 10, 2016 at 08:48 Initial Consult Date 07/11/16 Type of Consultation: pulmonary/intensive care Subjective Patient awake alert oriented this morning continues Vapotherm oxygen at 100% FiO2 and 30 L/m States breathing has improved somewhat Objective Vital Signs Date Time Temp Pulse Resp B/P Pulse Ox O2 Delivery O2 Flow Rate FiO2 07/13/16 10:15 100 20 Nasal Cannula 100 07/13/16 10:01 95 07/13/16 06:00 107/73 07/13/16 04:00 98.0 07/11/16 19:00 10.0 Intake and Output 07/12/16 07/12/16 07/13/16 15:00 23:00 07:00 Intake Total 640 ml 200 ml 200 ml Output Total 1810 ml 700 ml 300 ml Balance -1170 ml -500 ml -100 ml Exam GENERAL: Elderly-appearing transgender patient comfortable at rest VITAL SIGNS: per chart NECK: Supple. No JVD or lymphadenopathy. CARDIAC EXAM: S1, S2. No added sounds or murmurs. CHEST: Diminished air entry bilaterally with rales ABDOMEN: Soft, nontender. No guarding or rebound. EXTREMITIES: No cyanosis, clubbing or edema. NEUROLOGIC: Generalized weakness. No focal deficits. Results/Medications Result Diagram: 07/13/16 0530 07/13/16 0530 Results 24 hrs Laboratory Tests Test 07/12/16 12:55 07/13/16 05:30 Urine Color LT. YELLOW Urine Clarity CLEAR Urine pH 6.5 Urine Specific [place] <=1.005 L Urine Ketones NEGATIVE Urine Nitrite NEGATIVE Urine Bilirubin NEGATIVE Urine Urobilinogen 0.2 E.U./dL Urine Leukocyte Esterase NEGATIVE Urine Hemoglobin NEGATIVE Urine Glucose NEGATIVE Urine Total Protein NEGATIVE White Blood Count 11.7 H Red Blood Count 4.60 L Hemoglobin 12.4 L Hematocrit 38.5 L Mean Corpuscular Volume 83.7 Mean Corpuscular Hemoglobin 27.0 L Mean Corpuscular Hemoglobin Concent 32.2 Red Cell Distribution Width 16.8 H Platelet Count 324 Mean Platelet Volume 9.2 Neutrophils % 85.1 H Lymphocytes % 8.9 L Monocytes % 5.0 Eosinophils % 0.1 Basophils % 0.1 Nucleated Red Blood Cells % 0.0 Neutrophils # 10.0 H Lymphocytes # 1.0 Monocytes # 0.6 Eosinophils # 0.0 Basophils # 0.0 Nucleated Red Blood Cells # 0.0 Sodium Level 137 Potassium Level 4.5 Chloride Level 98 Carbon Dioxide Level 30 Anion Gap 14 Blood Urea Nitrogen 14 Creatinine 0.75 Glucose Level 143 # Calcium Level 9.4 Medications Current Medications Ondansetron HCl (Zofran Inj) 4 mg Q6H PRN IV NAUSEA AND/OR VOMITING; Start at 09:00 Lorazepam (Ativan) 0.5 mg Q6H PRN IV agitation; Start 07/10/16 at 09:00 Apixaban (Eliquis) 5 mg BID PO Last administered on 07/13/16 08:39; Admin Dose 5 MG; Start 07/10/16 at 09:00 Emtricitabine/ Tenofovir (Truvada) 1 tab DAILY PO Last administered on 08:40; Admin Dose 1 TAB; Start 07/10/16 at 09:00 Ferrous Sulfate (Ferrous Sulfate (Ec)) 325 mg BID PO Last administered on 08:39; Admin Dose 325 MG; Start 07/10/16 at 09:00 Fluticasone Propionate (Flonase 0.05% Nasal) 1 spray BID NASAL Last administered on 07/13/16 08:39; Admin Dose 1 SPRAY; Start 07/10/16 at 09:00 Lisinopril (Zestril) 20 mg DAILY PO Last administered on 07/13/16 08:39; Admin Dose 20 MG; Start 07/10/16 at 09:00 Multivitamins Therapeutic (Theragran) 1 tab DAILY PO Last administered on 08:40; Admin Dose 1 TAB; Start 07/10/16 at 09:00 Miscellaneous Medication (Isentress) 400 mg BID PO Last administered on 08:40; Admin Dose 400 MG; Start 07/10/16 at 09:00 Terbinafine HCl (Lamisil) 250 mg DAILY PO Last administered on 07/13/16 08:40 ; Admin Dose 250 MG; Start 07/10/16 at 09:00 Calcium/Vitamin D 1 tab 1 tab BID PO Last administered on 07/13/16 08:40; Admin Dose 1 TAB; Start 07/10/16 at 09:00 Azithromycin 250 ml @ 250 mls/hr Q24H IVPB Last administered on 07/12/16 17: 42; Admin Dose 250 MLS/HR; Start 07/10/16 at 18:00 Piperacillin Sod/ Tazobactam Sod (Zosyn 3.375gm/ 100 ml (Pmx)) 100 ml @ 200 mls /hr Q8 IVPB Last administered on 07/13/16 05:52; Admin Dose 200 MLS/HR; Start 07/11/16 at 14:00 Famotidine (Pepcid) 20 mg BID PO Last administered on 07/13/16 08:40; Admin Dose 20 MG; Start 07/11/16 at 21:00 Morphine Sulfate (morphine) 1 mg Q3H PRN IV PAIN Last administered on 06:04; Admin Dose 1 MG; Start 07/11/16 at 11:30 Acetaminophen (Tylenol Tab) 650 mg Q6H PRN PO PAIN AND OR ELEVATED TEMP Last administered on 07/11/16 23:18; Admin Dose 650 MG; Start 07/11/16 at 14:30 Methylprednisolone Sodium Succinate (Solu-Medrol) 40 mg Q6 IV Last administered on 07/13/16 05:51; Admin Dose 40 MG; Start 07/12/16 at 12:00 Morphine Sulfate (morphine) 2 mg Q3H PRN IV PAIN Last administered on 09:02; Admin Dose 2 MG; Start 07/12/16 at 11:00 Guaifenesin (Robitussin Liquid Cup) 200 mg Q4H PRN PO COUGH; Start 07/12/16 at 17:00 Amitriptyline HCl (Elavil) 100 mg HS PO ; Start 07/12/16 at 23:00 Olanzapine (Zyprexa) 20 mg HS PO ; Start 07/13/16 at 21:00 Assessment/Plan Chief Complaint/Hosp Course Assessment 1. Hypoxemic respiratory failure CT of the chest shows significant groundglass mosaic opacification suggestive of pneumocystis pneumonia 2. Differential does include of opportunistic infections including viral such as CMV 3. History of HIV on antiretroviral therapy according to the patient with undetectable viral load and adequate CD4 count. Currently cared for infectious disease specialist at [facility] 4. History of bipolar disorder 5. History of pulmonary embolism on Eliquis Plan 1. Continue Bactrim and steroids 2. Continue high flow oxygen 3. Agree with ID consult with repeat viral load and CD4 counts 4. May require bronchoscopy with biopsies of does not improve this would require intubation and mechanical ventilation 5. Continue DVT and GI prophylaxis Disposition Continue intensive care monitoring Problems: RAJ SANABRIA MD, [facility] Jul 13, 2016 11:05
--- NOTE | 2016-07-13 11:32 | PN ---
DATE: 07/13/2016 SUBJECTIVE: No acute events overnight. The patient is alert, feels better, comfortable on high joe w oxygen. VITAL SIGNS: Oxygen T-max yesterday was 102, T-current 98, pulse 100, respirations 20, blood pressu re 107/73, saturation 95 on 100 FIO2. WBC today 11.7, H and H 12.4 and 38.5, platelets 324, neutrophils 85.1. BUN 14, creatinine 0.75. MICROBIOLOGY: Blood cultures since admission remain negative. Urine culture negative. Sputum cult ure grew oxacillin-sensitive Staphylococcus aureus resistant to clarithromycin, clindamycin and peni cillin G, also erythromycin. ANTIMICROBIALS: 1. Zosyn. 2. Zithromax. 3. The patient also on Truvada. 4. Isentress. PHYSICAL EXAMINATION: GENERAL: This is a morbidly obese 50-year-old transgendered male to female who is alert, in no dist ress. HEENT: Head atraumatic, normocephalic. Sclerae anicteric. Buccal mucosa pink, dry. NECK: Supple. CHEST: Rise symmetrical. Breath sounds diminished to bases with scattered crackles. HEART: S1, S2. ABDOMEN: Soft, bowel tones present. EXTREMITIES: Without cyanosis. ASSESSMENT: 1. Acute hypoxemic respiratory failure. 2. Bilateral pneumonia, community-acquired given recent CD4 count of 986, as per patient. 3. Well controlled HIV. 4. Cured hepatitis C virus. 5. History of deep venous thrombosis and pulmonary emboli. 6. History of bipolar disorder. PLAN: The patient remains stable, responding to current antibiotics. His CD4 count per report rece ntly was above 900 and on previous admission in January 2016 was 932 as well. Therefore he is not a t risk for opportunistic infection. We will continue treating him with current regimen and continue steroids, bronchodilators and supplemental oxygen as per pulmonary recommendations. Dictated By: NATY ALCARAZ ACID STRENGTH INSPECTOR for SILVANA BENEDICT/FRANCISCO Conf#: [id number] DID#: [id number]
[2016-07-13 14:02] LABS: LYMPHOCYTE - % CD4 (HELPER) 30 % (30-61); LYMPHOCYTE - %CD8 (SUPPRESSOR) 40 % (12-42); LYMPHOCYTE - ABSOLUTE CD4 506 cells/uL (490-1740); LYMPHOCYTE - ABSOLUTE CD8 672 cells/uL (180-1170); LYMPHOCYTE - CD4/CD8 RATIO 0.75 (0.86-5.00)
[2016-07-13] MEDS: AZITHROMYCIN 500MG/NS (PMX) 250 ML IVPB SCH (18:11)
[2016-07-13] MEDS: AMITRIPTYLINE 25 MG TAB PO SCH (21:14)
[2016-07-13] MEDS: OLANZAPINE 5 MG TAB PO SCH (21:15)
[2016-07-14] VITALS (21 sets, daily range): BP systolic 95–157; BP diastolic 67–136; PULSE 86–108; RESP 11–35
[2016-07-14] MEDS: METHYLPREDNISOLONE 40 MG INJ IV SCH ×5 (00:26→23:06)
[2016-07-14] MEDS: ALBUTEROL/IPRATROPIUM (NEB) 3 ML AMP HHN SCH ×6 (01:08→20:29)
[2016-07-14] MEDS: ACETYLCYSTEINE 20% 4 ML VIAL NEB SCH ×4 (01:08→20:28)
[2016-07-14] MEDS: morphine 2 MG INJ IV PRN ×9 (01:27→23:04)
[2016-07-14] MEDS: FUROSEMIDE 20 MG INJ IV SCH ×2 (05:25→18:05)
[2016-07-14] MEDS: PIPER-TAZO 3.375 GM IV (PMX) 100 ML IVPB SCH (05:25)
[2016-07-14 05:56] LABS: ADD SCAN DIFF NO
[2016-07-14 06:01] LABS: BASOPHILS % 0.1 % (0.0-2.0); EOSINOPHILS % 0.3 % (0.0-7.0); HEMATOCRIT 39.2 % (42.0-52.0); HEMOGLOBIN 12.4 g/dl (14.0-18.0); LYMPHOCYTES # 1.3 10^3/ul (0.8-2.9); MEAN CORPUSCULAR HEMOGLOBIN 26.6 pg (29.0-33.0); MEAN CORPUSCULAR HGB CONC 31.6 g/dl (32.0-37.0); MEAN CORPUSCULAR VOLUME 83.9 fl (82.0-101.0); MEAN PLATELET VOLUME 9.1 fl (7.4-10.4); MONOCYTE # 0.6 10^3/ul (0.3-0.9); MONOCYTES % 3.8 % (0.0-11.0); NEUTROPHIL # 12.6 10^3/ul (1.6-7.5); NEUTROPHILS % 85.4 % (39.0-77.0); PLATELET COUNT 351 10^3/UL (140-415); RED BLOOD COUNT 4.67 10^6/ul (4.70-6.10); RED CELL DISTRIBUTION WIDTH 16.5 % (11.5-14.5); WHITE BLOOD COUNT 14.7 10^3/ul (4.8-10.8)
[2016-07-14 06:59] LABS: POTASSIUM 4.2 mmol/L (3.5-5.1)
[2016-07-14 07:02] LABS: CREATININE 0.75 mg/dl (0.61-1.24)
[2016-07-14 07:03] LABS: CALCIUM 9.3 mg/dl (8.4-10.2); MAGNESIUM 2.5 mg/dl (1.7-2.5)
[2016-07-14] MEDS: LISINOPRIL 20 MG TAB PO SCH (08:56)
[2016-07-14] MEDS: APIXABAN 5 MG TABLET PO SCH ×2 (08:56→21:52)
[2016-07-14] MEDS: MULTIVITAMINS THERAPEUTIC TAB PO SCH (08:56)
[2016-07-14] MEDS: EMTRICITABINE/TENOFOVIR TAB PO SCH (08:56)
[2016-07-14] MEDS: TERBINAFINE 250 MG TAB PO SCH (08:56)
[2016-07-14] MEDS: RALTEGRAVIR 400 MG TAB PO SCH ×2 (08:56→21:52)
[2016-07-14] MEDS: FERROUS SULFATE (EC) 325 MG TAB PO SCH ×2 (08:56→20:50)
[2016-07-14] MEDS: CALCIUM/VITAMIN D (250/125) TAB PO SCH ×2 (08:56→21:52)
[2016-07-14] MEDS: FAMOTIDINE 20 MG TAB PO SCH ×2 (08:56→20:50)
[2016-07-14] MEDS: FLUTICASONE 0.05% 16 GM NAS SPRAY NASAL SCH ×2 (08:57→21:52)
--- NOTE | 2016-07-14 10:58 | CONS ---
Date/Time of Note Date/Time of Note DATE: 07/14/16 TIME: 10:57 Consult Date/Type/Reason Admit Date/Time Jul 10, 2016 at 08:48 Initial Consult Date 07/11/16 Type of Consultation: pulmonary/intensive care Subjective Patient remains comfortable awake alert and oriented Still requiring 100% FiO2 on 30 L/m Objective Vital Signs Date Time Temp Pulse Resp B/P Pulse Ox O2 Delivery O2 Flow Rate FiO2 07/14/16 10:00 93 134/92 100 High Flow 07/14/16 09:00 18 07/14/16 08:53 80 07/14/16 08:00 97.4 07/11/16 19:00 10.0 Intake and Output 07/13/16 07/13/16 07/14/16 15:00 23:00 07:00 Intake Total 820 ml 780 ml 340 ml Output Total 1575 ml 1550 ml 925 ml Balance -755 ml -770 ml -585 ml Exam GENERAL: Elderly-appearing transgender patient comfortable at rest VITAL SIGNS: per chart NECK: Supple. No JVD or lymphadenopathy. CARDIAC EXAM: S1, S2. No added sounds or murmurs. CHEST: Diminished air entry bilaterally with rales ABDOMEN: Soft, nontender. No guarding or rebound. EXTREMITIES: No cyanosis, clubbing or edema. NEUROLOGIC: Generalized weakness. No focal deficits. Results/Medications Result Diagram: 07/14/16 0541 07/14/16 0541 Results 24 hrs Laboratory Tests Test 07/14/16 05:41 White Blood Count 14.7 #H Red Blood Count 4.67 L Hemoglobin 12.4 L Hematocrit 39.2 L Mean Corpuscular Volume 83.9 Mean Corpuscular Hemoglobin 26.6 L Mean Corpuscular Hemoglobin Concent 31.6 L Red Cell Distribution Width 16.5 H Platelet Count 351 Mean Platelet Volume 9.1 Neutrophils % 85.4 H Lymphocytes % 9.0 L Monocytes % 3.8 Eosinophils % 0.3 Basophils % 0.1 Nucleated Red Blood Cells % 0.0 Neutrophils # 12.6 H Lymphocytes # 1.3 Monocytes # 0.6 Eosinophils # 0.0 Basophils # 0.0 Nucleated Red Blood Cells # 0.0 Sodium Level 135 Potassium Level 4.2 Chloride Level 96 L Carbon Dioxide Level 28 Anion Gap 15 Blood Urea Nitrogen 18 Creatinine 0.75 Glucose Level 127 Calcium Level 9.3 Magnesium Level 2.5 Medications Current Medications Ondansetron HCl (Zofran Inj) 4 mg Q6H PRN IV NAUSEA AND/OR VOMITING; Start at 09:00 Lorazepam (Ativan) 0.5 mg Q6H PRN IV agitation; Start 07/10/16 at 09:00 Apixaban (Eliquis) 5 mg BID PO Last administered on 07/14/16 08:56; Admin Dose 5 MG; Start 07/10/16 at 09:00 Emtricitabine/ Tenofovir (Truvada) 1 tab DAILY PO Last administered on 08:56; Admin Dose 1 TAB; Start 07/10/16 at 09:00 Ferrous Sulfate (Ferrous Sulfate (Ec)) 325 mg BID PO Last administered on 08:56; Admin Dose 325 MG; Start 07/10/16 at 09:00 Fluticasone Propionate (Flonase 0.05% Nasal) 1 spray BID NASAL Last administered on 07/14/16 08:57; Admin Dose 1 SPRAY; Start 07/10/16 at 09:00 Lisinopril (Zestril) 20 mg DAILY PO Last administered on 07/14/16 08:56; Admin Dose 20 MG; Start 07/10/16 at 09:00 Multivitamins Therapeutic (Theragran) 1 tab DAILY PO Last administered on 08:56; Admin Dose 1 TAB; Start 07/10/16 at 09:00 Miscellaneous Medication (Isentress) 400 mg BID PO Last administered on 08:56; Admin Dose 400 MG; Start 07/10/16 at 09:00 Terbinafine HCl (Lamisil) 250 mg DAILY PO Last administered on 07/14/16 08:56 ; Admin Dose 250 MG; Start 07/10/16 at 09:00 Calcium/Vitamin D 1 tab 1 tab BID PO Last administered on 07/14/16 08:56; Admin Dose 1 TAB; Start 07/10/16 at 09:00 Azithromycin 250 ml @ 250 mls/hr Q24H IVPB Last administered on 07/13/16 18: 11; Admin Dose 250 MLS/HR; Start 07/10/16 at 18:00 Piperacillin Sod/ Tazobactam Sod (Zosyn 3.375gm/ 100 ml (Pmx)) 100 ml @ 200 mls /hr Q8 IVPB Last administered on 07/14/16 05:25; Admin Dose 200 MLS/HR; Start 07/11/16 at 14:00 Famotidine (Pepcid) 20 mg BID PO Last administered on 07/14/16 08:56; Admin Dose 20 MG; Start 07/11/16 at 21:00 Morphine Sulfate (morphine) 1 mg Q3H PRN IV PAIN Last administered on 06:04; Admin Dose 1 MG; Start 07/11/16 at 11:30 Acetaminophen (Tylenol Tab) 650 mg Q6H PRN PO PAIN AND OR ELEVATED TEMP Last administered on 07/11/16 23:18; Admin Dose 650 MG; Start 07/11/16 at 14:30 Methylprednisolone Sodium Succinate (Solu-Medrol) 40 mg Q6 IV Last administered on 07/14/16 05:25; Admin Dose 40 MG; Start 07/12/16 at 12:00 Morphine Sulfate (morphine) 2 mg Q3H PRN IV PAIN Last administered on 09:04; Admin Dose 2 MG; Start 07/12/16 at 11:00 Guaifenesin (Robitussin Liquid Cup) 200 mg Q4H PRN PO COUGH; Start 07/12/16 at 17:00 Amitriptyline HCl (Elavil) 100 mg HS PO Last administered on 07/13/16 21:14; Admin Dose 100 MG; Start 07/12/16 at 23:00 Olanzapine (Zyprexa) 20 mg HS PO Last administered on 07/13/16 21:15; Admin Dose 20 MG; Start 07/13/16 at 21:00 Assessment/Plan Chief Complaint/Hosp Course Assessment 1. Hypoxemic respiratory failure CT of the chest shows significant groundglass mosaic opacification suggestive of pneumocystis pneumonia 2. Differential does include of opportunistic infections including viral such as CMV 3. History of HIV on antiretroviral therapy according to the patient with undetectable viral load and adequate CD4 count. Currently cared for infectious disease specialist at [facility] 4. History of bipolar disorder 5. History of pulmonary embolism on Eliquis Plan 1. Continue steroids start Bactrim or pentamidine per ID. 2. Continue high flow oxygen 3. Aspiration precautions 4. May require bronchoscopy with biopsies of does not improve this would require intubation and mechanical ventilation 5. Continue DVT and GI prophylaxis Disposition Continue intensive care monitoring Problems: RAJ SANABRIA MD, [facility] Jul 14, 2016 10:58
--- NOTE | 2016-07-14 12:41 | PN ---
Date/Time of Note Date/Time of Note DATE: 07/14/16 TIME: 12:38 Assessment/Plan VTE Prophylaxis VTE Prophylaxis Intervention: SCD's Lines/Catheters IV Catheter Type (from [facility]): Saline Lock Urinary Cath still in place: No Assessment/Plan Chief Complaint/Hosp Course ASSESSMENT AND PLAN: 1. Pneumonia. The patient has been started on broad spectrum IV antibiotic , the trading assistant has been consulted, we will follow their recommendation. 2. History of human immunodeficiency virus. Continue HAART therapy. Infectious disease doctor has been consulted 3. History of pulmonary embolism. Continue Eliquis. No evidence of PE on CT of the chest 4. Essential hypertension, well controlled on lisinopril. 5. Gastroesophageal reflux disease. Continue PPI. 6. History of bipolar disorder. Continue Zyprexa. 7. Acute respiratory distress. Likely secondary to pneumonia, pulmonary edema. Continue IV antibiotics and diuretics We will continue to monitor patient closely. Further recommendations, management, and treatment as per clinical course. For DVT prophylaxis, on Eliquis. Problems: Subjective 24 Hr Interval Summary Free Text/Dictation Patient breathing status has been improving She continues to be on high flow via nasal cannula Tolerating oral intake No nausea vomiting diarrhea, denies any chest pain Exam/Review of Systems Vital Signs Vitals Vital Signs Date Time Temp Pulse Resp B/P Pulse Ox O2 Delivery O2 Flow Rate FiO2 07/14/16 10:00 93 134/92 100 High Flow 07/14/16 09:00 18 07/14/16 08:53 80 07/14/16 08:00 97.4 07/11/16 19:00 10.0 Intake and Output 07/13/16 07/13/16 07/14/16 15:00 23:00 07:00 Intake Total 820 ml 780 ml 340 ml Output Total 1575 ml 1550 ml 925 ml Balance -755 ml -770 ml -585 ml Exam General: The patient is moderately overweight, Not in acute distress. HEENT: Atraumatic, normocephalic. The pupils are equal and round . Neck: Supple with full range of motion. Chest: Normal expansion of the thorax during inspiration Lungs: Clear to auscultation bilaterally Heart: Normal S1-S2, Regular rhythm and rate. Abdomen: Soft , nontender, nondistended , bowel sounds are present. Extremities: Normal to inspection, no edema no cyanosis Neurologic: Normal mental status,The patient is awake, alert and oriented . Results Result Diagram: 07/14/16 0541 07/14/16 0541 Results 24 hrs Laboratory Tests Test 07/14/16 05:41 White Blood Count 14.7 #H Red Blood Count 4.67 L Hemoglobin 12.4 L Hematocrit 39.2 L Mean Corpuscular Volume 83.9 Mean Corpuscular Hemoglobin 26.6 L Mean Corpuscular Hemoglobin Concent 31.6 L Red Cell Distribution Width 16.5 H Platelet Count 351 Mean Platelet Volume 9.1 Neutrophils % 85.4 H Lymphocytes % 9.0 L Monocytes % 3.8 Eosinophils % 0.3 Basophils % 0.1 Nucleated Red Blood Cells % 0.0 Neutrophils # 12.6 H Lymphocytes # 1.3 Monocytes # 0.6 Eosinophils # 0.0 Basophils # 0.0 Nucleated Red Blood Cells # 0.0 Sodium Level 135 Potassium Level 4.2 Chloride Level 96 L Carbon Dioxide Level 28 Anion Gap 15 Blood Urea Nitrogen 18 Creatinine 0.75 Glucose Level 127 Calcium Level 9.3 Magnesium Level 2.5 Medications Medications Current Medications Ondansetron HCl (Zofran Inj) 4 mg Q6H PRN IV NAUSEA AND/OR VOMITING; Start at 09:00 Lorazepam (Ativan) 0.5 mg Q6H PRN IV agitation; Start 07/10/16 at 09:00 Apixaban (Eliquis) 5 mg BID PO Last administered on 07/14/16 08:56; Admin Dose 5 MG; Start 07/10/16 at 09:00 Emtricitabine/ Tenofovir (Truvada) 1 tab DAILY PO Last administered on 08:56; Admin Dose 1 TAB; Start 07/10/16 at 09:00 Ferrous Sulfate (Ferrous Sulfate (Ec)) 325 mg BID PO Last administered on 08:56; Admin Dose 325 MG; Start 07/10/16 at 09:00 Fluticasone Propionate (Flonase 0.05% Nasal) 1 spray BID NASAL Last administered on 07/14/16 08:57; Admin Dose 1 SPRAY; Start 07/10/16 at 09:00 Lisinopril (Zestril) 20 mg DAILY PO Last administered on 07/14/16 08:56; Admin Dose 20 MG; Start 07/10/16 at 09:00 Multivitamins Therapeutic (Theragran) 1 tab DAILY PO Last administered on 08:56; Admin Dose 1 TAB; Start 07/10/16 at 09:00 Miscellaneous Medication (Isentress) 400 mg BID PO Last administered on 08:56; Admin Dose 400 MG; Start 07/10/16 at 09:00 Terbinafine HCl (Lamisil) 250 mg DAILY PO Last administered on 07/14/16 08:56 ; Admin Dose 250 MG; Start 07/10/16 at 09:00 Calcium/Vitamin D 1 tab 1 tab BID PO Last administered on 07/14/16 08:56; Admin Dose 1 TAB; Start 07/10/16 at 09:00 Azithromycin (Zithromax 500mg/ NS (Pmx)) 250 ml @ 250 mls/hr Q24H IVPB Last administered on 07/13/16 18:11; Admin Dose 250 MLS/HR; Start 07/10/16 at 18:00 Famotidine (Pepcid) 20 mg BID PO Last administered on 07/14/16 08:56; Admin Dose 20 MG; Start 07/11/16 at 21:00 Acetaminophen (Tylenol Tab) 650 mg Q6H PRN PO PAIN AND OR ELEVATED TEMP Last administered on 07/11/16 23:18; Admin Dose 650 MG; Start 07/11/16 at 14:30 Methylprednisolone Sodium Succinate (Solu-Medrol) 40 mg Q6 IV Last administered on 07/14/16 12:20; Admin Dose 40 MG; Start 07/12/16 at 12:00 Guaifenesin (Robitussin Liquid Cup) 200 mg Q4H PRN PO COUGH; Start 07/12/16 at 17:00 Amitriptyline HCl (Elavil) 100 mg HS PO Last administered on 07/13/16 21:14; Admin Dose 100 MG; Start 07/12/16 at 23:00 Olanzapine (Zyprexa) 20 mg HS PO Last administered on 07/13/16 21:15; Admin Dose 20 MG; Start 07/13/16 at 21:00 Morphine Sulfate (morphine) 1 mg Q2H PRN IV PAIN LEVEL 1-5 Last administered on 07/14/16 12:11; Admin Dose 1 MG; Start 07/14/16 at 12:00 Morphine Sulfate 2 mg 2 mg Q2H PRN IV SEVERE PAIN LEVEL 7-10; Start 07/14/16 at 12:00 Trimethoprim/ Sulfamethoxazole 15 ml/Dextrose 515 ml @ 343.333 mls/hr Q8 IVPB ; Start 07/14/16 at 14:00; Status UNV Meropenem (Merrem 500 Mg/ 100 ml (Pmx)) 100 ml @ 200 mls/hr Q8 IVPB ; Start at 14:00; Status UNV HAYDE OGDEN MD Jul 14, 2016 12:41
--- NOTE | 2016-07-14 13:42 | PN ---
DATE: 07/14/2016 SUBJECTIVE: The patient remains on high flow oxygen. She is awake. Denies pain, discomfort, no nausea, vomiting, diarrhea. No fevers. VITAL SIGNS: Temperature 97.4, pulse 93, respirations 18, blood pressure 134/92 , saturation 100 on high flow. LABORATORY DATA: WBC 14.7, H and H 12.4 and 39.2, platelets 351, neutrophils 85.4, BUN 8, creatinine 0.75. CD4 count came back at 506. ANTIMICROBIALS: The patient is on: 1. Zosyn. 2. Zithromax. 3. He is also on antiretroviral regimen. PHYSICAL EXAMINATION: GENERAL: This is a morbidly obese, middle-aged -[place] transgendered man to woman who is alert, in no distress. HEENT: Head atraumatic, normocephalic. Sclerae anicteric. Buccal mucosa dry. NECK: Supple, trachea midline. CHEST: Rise symmetrical. Breath sounds diminished to bases. HEART: S1, S2. ABDOMEN: Obese, soft, bowel tones present. EXTREMITIES: Without cyanosis. ASSESSMENT: 1. Acute hypoxemic respiratory failure. 2. Pneumonia with abnormal CT findings with a picture of PCP as per discussion with Dr. Solis. 3. Human immunodeficiency virus. 4. Morbid obesity. 5. History of bipolar disorder. 6. History of deep venous thrombosis and pulmonary emboli. 7. Hepatitis C virus. PLAN: The patient remains unchanged. Still with significant hypoxemia. As per discussion with Dr. Solis we are going to start her on IV Bactrim for possible PCP although again her CD4 count is above 200. We will continue Zithromax. Change Zosyn to meropenem. Dictated By: NATY ALCARAZ FILM EDITOR SUPERVISOR for SILVANA CASTRO MD NI/NTS Conf#: [id number] DID#: [id number] MTDD
[2016-07-14] MEDS: MEROPENEM 500 MG/100 ML (PMX) 100 ML IVPB SCH ×2 (14:10→20:49)
[2016-07-14] MEDS: TRIMETHOPRIM/SULFAMETHOXAZOLE 15 ML in DEXTROSE 5% 500 ML IVPB SCH ×2 (14:55→21:52)
[2016-07-14] MEDS: AZITHROMYCIN 500MG/NS (PMX) 250 ML IVPB SCH (18:06)
[2016-07-14] MEDS: OLANZAPINE 5 MG TAB PO SCH (20:50)
[2016-07-14 21:11] LABS: HISTOPLASMA GALACTOMANNAN AG U <0.5 ng/mL
[2016-07-14] MEDS: AMITRIPTYLINE 50 MG TAB PO SCH (21:52)
[2016-07-15] VITALS (13 sets, daily range): BP systolic 113–155; BP diastolic 70–84; PULSE 83–108; RESP 16–19
[2016-07-15] MEDS: ALBUTEROL/IPRATROPIUM (NEB) 3 ML AMP HHN SCH ×6 (01:50→20:26)
[2016-07-15] MEDS: ACETYLCYSTEINE 20% 4 ML VIAL NEB SCH ×4 (02:00→20:16)
[2016-07-15] MEDS: MEROPENEM 500 MG/100 ML (PMX) 100 ML IVPB SCH ×3 (05:29→22:04)
[2016-07-15] MEDS: METHYLPREDNISOLONE 40 MG INJ IV SCH ×3 (05:29→18:13)
[2016-07-15] MEDS: FUROSEMIDE 20 MG INJ IV SCH ×2 (05:30→18:13)
[2016-07-15] MEDS: morphine 2 MG INJ IV PRN ×8 (05:43→22:04)
[2016-07-15] MEDS: TRIMETHOPRIM/SULFAMETHOXAZOLE 15 ML in DEXTROSE 5% 500 ML IVPB SCH ×3 (06:36→22:32)
[2016-07-15 06:47] LABS: ADD SCAN DIFF NO
[2016-07-15 06:57] LABS: BASOPHILS % 0.1 % (0.0-2.0); EOSINOPHILS % 0.2 % (0.0-7.0); HEMATOCRIT 39.7 % (42.0-52.0); HEMOGLOBIN 12.5 g/dl (14.0-18.0); LYMPHOCYTES # 1.6 10^3/ul (0.8-2.9); LYMPHOCYTES % 13.6 % (15.0-51.0); MEAN CORPUSCULAR HEMOGLOBIN 26.8 pg (29.0-33.0); MEAN CORPUSCULAR HGB CONC 31.5 g/dl (32.0-37.0); MEAN PLATELET VOLUME 9.1 fl (7.4-10.4); MONOCYTE # 0.5 10^3/ul (0.3-0.9); MONOCYTES % 4.5 % (0.0-11.0); NEUTROPHIL # 9.7 10^3/ul (1.6-7.5); NEUTROPHILS % 80.9 % (39.0-77.0); PLATELET COUNT 348 10^3/UL (140-415); RED BLOOD COUNT 4.67 10^6/ul (4.70-6.10); RED CELL DISTRIBUTION WIDTH 16.6 % (11.5-14.5)
[2016-07-15 07:13] LABS: POTASSIUM 4.1 mmol/L (3.5-5.1)
[2016-07-15 07:16] LABS: CREATININE 0.76 mg/dl (0.61-1.24)
[2016-07-15 07:17] LABS: CALCIUM 9.1 mg/dl (8.4-10.2); MAGNESIUM 2.4 mg/dl (1.7-2.5); PHOSPHORUS 3.9 mg/dl (2.5-4.9)
[2016-07-15] MEDS ORDERED: VITAMIN A & D 5 GM OINT PACKET TOP ONE (09:11)
[2016-07-15] MEDS: CALCIUM/VITAMIN D (250/125) TAB PO SCH ×2 (09:39→22:30)
[2016-07-15] MEDS: APIXABAN 5 MG TABLET PO SCH ×2 (09:40→22:05)
[2016-07-15] MEDS: MULTIVITAMINS THERAPEUTIC TAB PO SCH (09:40)
[2016-07-15] MEDS: FAMOTIDINE 20 MG TAB PO SCH ×2 (09:40→22:05)
[2016-07-15] MEDS: LISINOPRIL 20 MG TAB PO SCH (09:40)
[2016-07-15] MEDS: FERROUS SULFATE (EC) 325 MG TAB PO SCH ×2 (09:40→22:05)
[2016-07-15] MEDS: RALTEGRAVIR 400 MG TAB PO SCH ×2 (09:40→23:00)
[2016-07-15] MEDS: EMTRICITABINE/TENOFOVIR TAB PO SCH (09:40)
[2016-07-15] MEDS: TERBINAFINE 250 MG TAB PO SCH (09:41)
[2016-07-15] MEDS: FLUTICASONE 0.05% 16 GM NAS SPRAY NASAL SCH ×2 (09:43→21:00)
--- NOTE | 2016-07-15 09:52 | RADRPT ---
PROCEDURE: XR Chest. CLINICAL INDICATION: Pulmonary edema TECHNIQUE: A single AP view of the chest was obtained. COMPARISON: Chest x-ray and CT pulmonary angiogram dated 07/12/2016 FINDINGS: There are diffuse bilateral interstitial opacities. No pleural effusion or pneumothorax is seen. T he cardiomediastinal silhouette is within normal limits for size. The osseous structures are unrema rkable. IMPRESSION: Diffuse bilateral interstitial opacities may reflect interstitial edema or pneumonia. Lung aeration is improved when compared to the prior examination. RPTAT: HH .Tonya Barger MD, Date Time Electronically viewed and signed by .Tonya Barger MD, MD on 07/15/2016 09:52 .G/
--- NOTE | 2016-07-15 11:10 | CONS ---
Date/Time of Note Date/Time of Note DATE: 07/15/16 TIME: 11:08 Assessment/Plan Assessment/Plan Additional Assessment/Plan Chest x-ray was reviewed from today which is showing significant improvement in bilateral pneumonia. Assessment recommendations; 1. Patient with history of HIV admitted for severe bilateral pneumonia very suggestive for PCP with significant clinical and radiological improvement. 2. Possibly superimposed community acquired pneumonia patient currently on appropriate antibiotic regimen. 3. Transgender, currently on hormone replacement therapy. 4. History of DVT and PE maintained on chronic anticoagulant. Continue current treatment. Change Solu-Medrol to prednisone starting tomorrow. Consultation Date/Type/Reason Admit Date/Time Jul 10, 2016 at 08:48 Initial Consult Date 07/10/16 Type of Consultation: pulmonary/intensive care 24 HR Interval Summary Free Text/Dictation Patient condition is markedly improved. Has been transferred out of ICU to telemetry unit. Denies any shortness of breath, wheezing, cough, sputum production fever or chills. General exam; middle aged male transgender currently in no distress. Awake and alert. Exam/Review of Systems Vital Signs Vitals Vital Signs Date Time Temp Pulse Resp B/P Pulse Ox O2 Delivery O2 Flow Rate FiO2 07/15/16 08:43 99 70 07/15/16 08:42 97 18 07/15/16 07:23 98.4 155/76 07/14/16 16:30 High Flow 07/11/16 19:00 10.0 Intake and Output 07/14/16 07/14/16 07/15/16 15:00 23:00 07:00 Intake Total 640 ml 615 ml 1000 ml Output Total 1700 ml 1000 ml Balance -1060 ml 615 ml 0 ml Exam HEENT examination; supple neck, no JVD. No lymphadenopathy. Midline trachea. No thyromegaly. Pharynx is clear. No neck masses. Patient has fair dentition. Chest examination; clear to auscultation bilaterally. S1-S2 audible, no murmurs. Regular rhythm. Abdomen examination; soft, no organomegaly. Bowel sounds audible. Nontender. Extremity exam; no peripheral edema. Pulses 1+ bilaterally. No clubbing. 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 Results Result Diagram: 07/15/16 0610 07/15/16 0610 Results 24 hrs Laboratory Tests Test 07/15/16 06:10 White Blood Count 12.0 H Red Blood Count 4.67 L Hemoglobin 12.5 L Hematocrit 39.7 L Mean Corpuscular Volume 85.0 Mean Corpuscular Hemoglobin 26.8 L Mean Corpuscular Hemoglobin Concent 31.5 L Red Cell Distribution Width 16.6 H Platelet Count 348 Mean Platelet Volume 9.1 Neutrophils % 80.9 H Lymphocytes % 13.6 L Monocytes % 4.5 Eosinophils % 0.2 Basophils % 0.1 Nucleated Red Blood Cells % 0.0 Neutrophils # 9.7 H Lymphocytes # 1.6 Monocytes # 0.5 Eosinophils # 0.0 Basophils # 0.0 Nucleated Red Blood Cells # 0.0 Sodium Level 137 Potassium Level 4.1 Chloride Level 99 Carbon Dioxide Level 29 Anion Gap 13 Blood Urea Nitrogen 17 Creatinine 0.76 Glucose Level 157 Calcium Level 9.1 Phosphorus Level 3.9 Magnesium Level 2.4 Medications Medications Current Medications Ondansetron HCl (Zofran Inj) 4 mg Q6H PRN IV NAUSEA AND/OR VOMITING; Start at 09:00 Lorazepam (Ativan) 0.5 mg Q6H PRN IV agitation; Start 07/10/16 at 09:00 Apixaban (Eliquis) 5 mg BID PO Last administered on 07/15/16 09:40; Admin Dose 5 MG; Start 07/10/16 at 09:00 Emtricitabine/ Tenofovir (Truvada) 1 tab DAILY PO Last administered on 09:40; Admin Dose 1 TAB; Start 07/10/16 at 09:00 Ferrous Sulfate (Ferrous Sulfate (Ec)) 325 mg BID PO Last administered on 09:40; Admin Dose 325 MG; Start 07/10/16 at 09:00 Fluticasone Propionate (Flonase 0.05% Nasal) 1 spray BID NASAL Last administered on 07/15/16 09:43; Admin Dose 1 SPRAY; Start 07/10/16 at 09:00 Lisinopril (Zestril) 20 mg DAILY PO Last administered on 07/15/16 09:40; Admin Dose 20 MG; Start 07/10/16 at 09:00 Multivitamins Therapeutic (Theragran) 1 tab DAILY PO Last administered on 09:40; Admin Dose 1 TAB; Start 07/10/16 at 09:00 Miscellaneous Medication (Isentress) 400 mg BID PO Last administered on 09:40; Admin Dose 400 MG; Start 07/10/16 at 09:00 Terbinafine HCl (Lamisil) 250 mg DAILY PO Last administered on 07/15/16 09:41 ; Admin Dose 250 MG; Start 07/10/16 at 09:00 Calcium/Vitamin D 1 tab 1 tab BID PO Last administered on 07/15/16 09:39; Admin Dose 1 TAB; Start 07/10/16 at 09:00 Azithromycin (Zithromax 500mg/ NS (Pmx)) 250 ml @ 250 mls/hr Q24H IVPB Last administered on 07/14/16 18:06; Admin Dose 250 MLS/HR; Start 07/10/16 at 18:00 Famotidine (Pepcid) 20 mg BID PO Last administered on 07/15/16 09:40; Admin Dose 20 MG; Start 07/11/16 at 21:00 Acetaminophen (Tylenol Tab) 650 mg Q6H PRN PO PAIN AND OR ELEVATED TEMP Last administered on 07/11/16 23:18; Admin Dose 650 MG; Start 07/11/16 at 14:30 Methylprednisolone Sodium Succinate (Solu-Medrol) 40 mg Q6 IV Last administered on 07/15/16 05:29; Admin Dose 40 MG; Start 07/12/16 at 12:00 Guaifenesin (Robitussin Liquid Cup) 200 mg Q4H PRN PO COUGH; Start 07/12/16 at 17:00 Olanzapine (Zyprexa) 20 mg HS PO Last administered on 07/14/16 20:50; Admin Dose 20 MG; Start 07/13/16 at 21:00 Morphine Sulfate (morphine) 1 mg Q2H PRN IV PAIN LEVEL 1-5 Last administered on 07/14/16 14:09; Admin Dose 1 MG; Start 07/14/16 at 12:00 Morphine Sulfate 2 mg 2 mg Q2H PRN IV SEVERE PAIN LEVEL 7-10 Last administered on 07/15/16 10:14; Admin Dose 2 MG; Start 07/14/16 at 12:00 Trimethoprim/ Sulfamethoxazole 15 ml/Dextrose 515 ml @ 343.333 mls/hr Q8 IVPB Last administered on 07/15/16 06:36; Admin Dose 343.333 MLS/HR; Start 07/14/16 at 14:00 Meropenem (Merrem 500 Mg/ 100 ml (Pmx)) 100 ml @ 200 mls/hr Q8 IVPB Last administered on 07/15/16 05:29; Admin Dose 200 MLS/HR; Start 07/14/16 at 14:00 Amitriptyline HCl (Elavil) 100 mg HS PO Last administered on 07/14/16 21:52; Admin Dose 100 MG; Start 07/14/16 at 21:30 ELIANE SINGLETON Jul 15, 2016 11:10
--- NOTE | 2016-07-15 12:03 | PN ---
Date/Time of Note Date/Time of Note DATE: 07/15/16 TIME: 12:01 Assessment/Plan VTE Prophylaxis VTE Prophylaxis Intervention: other (Eliquis ) Lines/Catheters [facility] Saline [facility] Urinary Cath still in place: No Assessment/Plan Assessment/Plan 1. HIV positive with acute resp distress due to Pneumonia, Improving wiht IV abx 2. History of human immunodeficiency virus. Continue HAART therapy. ID on case 3. History of pulmonary embolism. Continue Eliquis. No evidence of PE on CT of the chest 4. Essential hypertension, well controlled on lisinopril. 5. Gastroesophageal reflux disease. Continue PPI. 6. History of bipolar disorder. Continue Zyprexa. 7. Acute respiratory distress. Likely secondary to pneumonia, improving with IV abx on Eliquis 8. transgender downgraded to telemetry yesterday, will follow up on resp status ,will keep him on telemetry floor Subjective 24 Hr Interval Summary Free Text/Dictation stable,downgraded to telemetry floor Exam/Review of Systems Vital Signs Vitals Vital Signs Date Time Temp Pulse Resp B/P Pulse Ox O2 Delivery O2 Flow Rate FiO2 07/15/16 11:27 97.8 90 18 125/84 94 07/15/16 08:43 70 07/14/16 16:30 High Flow 07/11/16 19:00 10.0 Intake and Output 07/14/16 07/14/16 07/15/16 15:00 23:00 07:00 Intake Total 640 ml 615 ml 1000 ml Output Total 1700 ml 1000 ml Balance -1060 ml 615 ml 0 ml Exam GENERAL: This is a morbidly obese, middle-aged -[place] transgendered man to woman who is alert, in no distress. HEENT: Head atraumatic, normocephalic. Sclerae anicteric. Buccal mucosa dry. NECK: Supple, trachea midline. CHEST: Rise symmetrical. Breath sounds diminished to bases. HEART: S1, S2. ABDOMEN: Obese, soft, bowel tones present. EXTREMITIES: Without cyanosis. Results Result Diagram: 07/15/16 0610 07/15/16 0610 Results 24 hrs Laboratory Tests Test 07/15/16 06:10 White Blood Count 12.0 H Red Blood Count 4.67 L Hemoglobin 12.5 L Hematocrit 39.7 L Mean Corpuscular Volume 85.0 Mean Corpuscular Hemoglobin 26.8 L Mean Corpuscular Hemoglobin Concent 31.5 L Red Cell Distribution Width 16.6 H Platelet Count 348 Mean Platelet Volume 9.1 Neutrophils % 80.9 H Lymphocytes % 13.6 L Monocytes % 4.5 Eosinophils % 0.2 Basophils % 0.1 Nucleated Red Blood Cells % 0.0 Neutrophils # 9.7 H Lymphocytes # 1.6 Monocytes # 0.5 Eosinophils # 0.0 Basophils # 0.0 Nucleated Red Blood Cells # 0.0 Sodium Level 137 Potassium Level 4.1 Chloride Level 99 Carbon Dioxide Level 29 Anion Gap 13 Blood Urea Nitrogen 17 Creatinine 0.76 Glucose Level 157 Calcium Level 9.1 Phosphorus Level 3.9 Magnesium Level 2.4 Medications Medications Current Medications Ondansetron HCl (Zofran Inj) 4 mg Q6H PRN IV NAUSEA AND/OR VOMITING; Start at 09:00 Lorazepam (Ativan) 0.5 mg Q6H PRN IV agitation; Start 07/10/16 at 09:00 Apixaban (Eliquis) 5 mg BID PO Last administered on 07/15/16 09:40; Admin Dose 5 MG; Start 07/10/16 at 09:00 Emtricitabine/ Tenofovir (Truvada) 1 tab DAILY PO Last administered on 09:40; Admin Dose 1 TAB; Start 07/10/16 at 09:00 Ferrous Sulfate (Ferrous Sulfate (Ec)) 325 mg BID PO Last administered on 09:40; Admin Dose 325 MG; Start 07/10/16 at 09:00 Fluticasone Propionate (Flonase 0.05% Nasal) 1 spray BID NASAL Last administered on 07/15/16 09:43; Admin Dose 1 SPRAY; Start 07/10/16 at 09:00 Lisinopril (Zestril) 20 mg DAILY PO Last administered on 07/15/16 09:40; Admin Dose 20 MG; Start 07/10/16 at 09:00 Multivitamins Therapeutic (Theragran) 1 tab DAILY PO Last administered on 09:40; Admin Dose 1 TAB; Start 07/10/16 at 09:00 Miscellaneous Medication (Isentress) 400 mg BID PO Last administered on 09:40; Admin Dose 400 MG; Start 07/10/16 at 09:00 Terbinafine HCl (Lamisil) 250 mg DAILY PO Last administered on 07/15/16 09:41 ; Admin Dose 250 MG; Start 07/10/16 at 09:00 Calcium/Vitamin D 1 tab 1 tab BID PO Last administered on 07/15/16 09:39; Admin Dose 1 TAB; Start 07/10/16 at 09:00 Azithromycin (Zithromax 500mg/ NS (Pmx)) 250 ml @ 250 mls/hr Q24H IVPB Last administered on 07/14/16 18:06; Admin Dose 250 MLS/HR; Start 07/10/16 at 18:00 Famotidine (Pepcid) 20 mg BID PO Last administered on 07/15/16 09:40; Admin Dose 20 MG; Start 07/11/16 at 21:00 Acetaminophen (Tylenol Tab) 650 mg Q6H PRN PO PAIN AND OR ELEVATED TEMP Last administered on 07/11/16 23:18; Admin Dose 650 MG; Start 07/11/16 at 14:30 Methylprednisolone Sodium Succinate (Solu-Medrol) 40 mg Q6 IV Last administered on 07/15/16 05:29; Admin Dose 40 MG; Start 07/12/16 at 12:00 Guaifenesin (Robitussin Liquid Cup) 200 mg Q4H PRN PO COUGH; Start 07/12/16 at 17:00 Olanzapine (Zyprexa) 20 mg HS PO Last administered on 07/14/16 20:50; Admin Dose 20 MG; Start 07/13/16 at 21:00 Morphine Sulfate (morphine) 1 mg Q2H PRN IV PAIN LEVEL 1-5 Last administered on 07/14/16 14:09; Admin Dose 1 MG; Start 07/14/16 at 12:00 Morphine Sulfate 2 mg 2 mg Q2H PRN IV SEVERE PAIN LEVEL 7-10 Last administered on 07/15/16 10:14; Admin Dose 2 MG; Start 07/14/16 at 12:00 Trimethoprim/ Sulfamethoxazole 15 ml/Dextrose 515 ml @ 343.333 mls/hr Q8 IVPB Last administered on 07/15/16 06:36; Admin Dose 343.333 MLS/HR; Start 07/14/16 at 14:00 Meropenem (Merrem 500 Mg/ 100 ml (Pmx)) 100 ml @ 200 mls/hr Q8 IVPB Last administered on 07/15/16 05:29; Admin Dose 200 MLS/HR; Start 07/14/16 at 14:00 Amitriptyline HCl (Elavil) 100 mg HS PO Last administered on 07/14/16 21:52; Admin Dose 100 MG; Start 07/14/16 at 21:30 SUSI LEE MD Jul 15, 2016 12:03
--- NOTE | 2016-07-15 12:38 | CONS ---
Date/Time of Note Date/Time of Note DATE: 07/15/16 TIME: 12:35 Assessment/Plan Assessment/Plan Chief Complaint/Hosp Course SUBJECTIVE: The patient remains on high flow oxygen. She is awake. Denies pain, discomfort, no nausea, vomiting, diarrhea. No fevers. ANTIMICROBIALS: The patient is on: 1. Merrem. 2. Zithromax. 3. Bactrim IV PHYSICAL EXAMINATION: GENERAL: This is a morbidly obese, middle-aged -Tristanian transgendered man to woman who is alert, in no distress. HEENT: Head atraumatic, normocephalic. Sclerae anicteric. Buccal mucosa dry. NECK: Supple, trachea midline. CHEST: Rise symmetrical. Breath sounds diminished to bases. HEART: S1, S2. ABDOMEN: Obese, soft, bowel tones present. EXTREMITIES: Without cyanosis. ASSESSMENT: 1. Acute hypoxemic respiratory failure. 2. Pneumonia with CT findings consistent with PCP as per discussion with Dr. Solis. 3. Human immunodeficiency virus==> CD4 506. 4. Morbid obesity. 5. History of bipolar disorder. 6. History of deep venous thrombosis and pulmonary emboli. 7. Hepatitis C virus. PLAN: The patient remains stable on high flow. Continue abx, steroids, [facility] staff/pt Problems: Consultation Date/Type/Reason Admit Date/Time Jul 10, 2016 at 08:48 Initial Consult Date 07/11/16 Type of Consultation: ID Exam/Review of Systems Vital Signs Vitals Vital Signs Date Time Temp Pulse Resp B/P Pulse Ox O2 Delivery O2 Flow Rate FiO2 07/15/16 12:02 92 07/15/16 11:27 97.8 18 125/84 94 07/15/16 08:43 70 07/14/16 16:30 High Flow 07/11/16 19:00 10.0 Intake and Output 07/14/16 07/14/16 07/15/16 15:00 23:00 07:00 Intake Total 640 ml 615 ml 1000 ml Output Total 1700 ml 1000 ml Balance -1060 ml 615 ml 0 ml Results Result Diagram: 07/15/16 0610 07/15/16 0610 Results 24 hrs Laboratory Tests Test 07/15/16 06:10 White Blood Count 12.0 H Red Blood Count 4.67 L Hemoglobin 12.5 L Hematocrit 39.7 L Mean Corpuscular Volume 85.0 Mean Corpuscular Hemoglobin 26.8 L Mean Corpuscular Hemoglobin Concent 31.5 L Red Cell Distribution Width 16.6 H Platelet Count 348 Mean Platelet Volume 9.1 Neutrophils % 80.9 H Lymphocytes % 13.6 L Monocytes % 4.5 Eosinophils % 0.2 Basophils % 0.1 Nucleated Red Blood Cells % 0.0 Neutrophils # 9.7 H Lymphocytes # 1.6 Monocytes # 0.5 Eosinophils # 0.0 Basophils # 0.0 Nucleated Red Blood Cells # 0.0 Sodium Level 137 Potassium Level 4.1 Chloride Level 99 Carbon Dioxide Level 29 Anion Gap 13 Blood Urea Nitrogen 17 Creatinine 0.76 Glucose Level 157 Calcium Level 9.1 Phosphorus Level 3.9 Magnesium Level 2.4 Medications Medications Current Medications Ondansetron HCl (Zofran Inj) 4 mg Q6H PRN IV NAUSEA AND/OR VOMITING; Start at 09:00 Lorazepam (Ativan) 0.5 mg Q6H PRN IV agitation; Start 07/10/16 at 09:00 Apixaban (Eliquis) 5 mg BID PO Last administered on 07/15/16 09:40; Admin Dose 5 MG; Start 07/10/16 at 09:00 Emtricitabine/ Tenofovir (Truvada) 1 tab DAILY PO Last administered on 09:40; Admin Dose 1 TAB; Start 07/10/16 at 09:00 Ferrous Sulfate (Ferrous Sulfate (Ec)) 325 mg BID PO Last administered on 09:40; Admin Dose 325 MG; Start 07/10/16 at 09:00 Fluticasone Propionate (Flonase 0.05% Nasal) 1 spray BID NASAL Last administered on 07/15/16 09:43; Admin Dose 1 SPRAY; Start 07/10/16 at 09:00 Lisinopril (Zestril) 20 mg DAILY PO Last administered on 07/15/16 09:40; Admin Dose 20 MG; Start 07/10/16 at 09:00 Multivitamins Therapeutic (Theragran) 1 tab DAILY PO Last administered on 09:40; Admin Dose 1 TAB; Start 07/10/16 at 09:00 Miscellaneous Medication (Isentress) 400 mg BID PO Last administered on 09:40; Admin Dose 400 MG; Start 07/10/16 at 09:00 Terbinafine HCl (Lamisil) 250 mg DAILY PO Last administered on 07/15/16 09:41 ; Admin Dose 250 MG; Start 07/10/16 at 09:00 Calcium/Vitamin D 1 tab 1 tab BID PO Last administered on 07/15/16 09:39; Admin Dose 1 TAB; Start 07/10/16 at 09:00 Azithromycin (Zithromax 500mg/ NS (Pmx)) 250 ml @ 250 mls/hr Q24H IVPB Last administered on 07/14/16 18:06; Admin Dose 250 MLS/HR; Start 07/10/16 at 18:00 Famotidine (Pepcid) 20 mg BID PO Last administered on 07/15/16 09:40; Admin Dose 20 MG; Start 07/11/16 at 21:00 Acetaminophen (Tylenol Tab) 650 mg Q6H PRN PO PAIN AND OR ELEVATED TEMP Last administered on 07/11/16 23:18; Admin Dose 650 MG; Start 07/11/16 at 14:30 Methylprednisolone Sodium Succinate (Solu-Medrol) 40 mg Q6 IV Last administered on 07/15/16 05:29; Admin Dose 40 MG; Start 07/12/16 at 12:00 Guaifenesin (Robitussin Liquid Cup) 200 mg Q4H PRN PO COUGH; Start 07/12/16 at 17:00 Olanzapine (Zyprexa) 20 mg HS PO Last administered on 07/14/16 20:50; Admin Dose 20 MG; Start 07/13/16 at 21:00 Morphine Sulfate (morphine) 1 mg Q2H PRN IV PAIN LEVEL 1-5 Last administered on 07/14/16 14:09; Admin Dose 1 MG; Start 07/14/16 at 12:00 Morphine Sulfate 2 mg 2 mg Q2H PRN IV SEVERE PAIN LEVEL 7-10 Last administered on 07/15/16 10:14; Admin Dose 2 MG; Start 07/14/16 at 12:00 Trimethoprim/ Sulfamethoxazole 15 ml/Dextrose 515 ml @ 343.333 mls/hr Q8 IVPB Last administered on 07/15/16 06:36; Admin Dose 343.333 MLS/HR; Start 07/14/16 at 14:00 Meropenem (Merrem 500 Mg/ 100 ml (Pmx)) 100 ml @ 200 mls/hr Q8 IVPB Last administered on 07/15/16 05:29; Admin Dose 200 MLS/HR; Start 07/14/16 at 14:00 Amitriptyline HCl (Elavil) 100 mg HS PO Last administered on 07/14/16 21:52; Admin Dose 100 MG; Start 07/14/16 at 21:30 NATY ALCARAZ NP Jul 15, 2016 12:38
[2016-07-15] MEDS: AZITHROMYCIN 500MG/NS (PMX) 250 ML IVPB SCH (18:13)
[2016-07-15] MEDS: AMITRIPTYLINE 50 MG TAB PO SCH (22:04)
[2016-07-15] MEDS: OLANZAPINE 5 MG TAB PO SCH (22:05)
[2016-07-16] VITALS (11 sets, daily range): BP systolic 117–139; BP diastolic 41–93; PULSE 56–113; RESP 18–24
[2016-07-16] MEDS: METHYLPREDNISOLONE 40 MG INJ IV SCH ×3 (00:19→13:05)
[2016-07-16] MEDS: morphine 2 MG INJ IV PRN ×9 (00:40→22:01)
[2016-07-16] MEDS: ALBUTEROL/IPRATROPIUM (NEB) 3 ML AMP HHN SCH ×6 (01:56→20:05)
[2016-07-16] MEDS: ACETYLCYSTEINE 20% 4 ML VIAL NEB SCH ×4 (02:07→20:05)
[2016-07-16] MEDS: FUROSEMIDE 20 MG INJ IV SCH ×2 (05:06→17:38)
[2016-07-16] MEDS: MEROPENEM 500 MG/100 ML (PMX) 100 ML IVPB SCH ×3 (05:07→22:00)
[2016-07-16] MEDS: TRIMETHOPRIM/SULFAMETHOXAZOLE 15 ML in DEXTROSE 5% 500 ML IVPB SCH ×2 (06:07→14:38)
[2016-07-16 06:34] LABS: ADD SCAN DIFF NO
[2016-07-16 06:38] LABS: BASOPHILS % 0.1 % (0.0-2.0); EOSINOPHILS % 0.1 % (0.0-7.0); HEMATOCRIT 41.7 % (42.0-52.0); LYMPHOCYTES # 1.7 10^3/ul (0.8-2.9); LYMPHOCYTES % 14.3 % (15.0-51.0); MEAN CORPUSCULAR HEMOGLOBIN 26.7 pg (29.0-33.0); MEAN CORPUSCULAR HGB CONC 31.2 g/dl (32.0-37.0); MEAN CORPUSCULAR VOLUME 85.6 fl (82.0-101.0); MONOCYTE # 0.5 10^3/ul (0.3-0.9); MONOCYTES % 4.4 % (0.0-11.0); NEUTROPHIL # 9.6 10^3/ul (1.6-7.5); NEUTROPHILS % 79.6 % (39.0-77.0); PLATELET COUNT 402 10^3/UL (140-415); RED BLOOD COUNT 4.87 10^6/ul (4.70-6.10); RED CELL DISTRIBUTION WIDTH 16.8 % (11.5-14.5); WHITE BLOOD COUNT 12.1 10^3/ul (4.8-10.8)
[2016-07-16 06:45] LABS: POTASSIUM 4.5 mmol/L (3.5-5.1)
[2016-07-16 06:48] LABS: CREATININE 0.9 mg/dl (0.61-1.24)
[2016-07-16 06:49] LABS: CALCIUM 9.3 mg/dl (8.4-10.2)
[2016-07-16] MEDS: MULTIVITAMINS THERAPEUTIC TAB PO SCH (08:22)
[2016-07-16] MEDS: TERBINAFINE 250 MG TAB PO SCH (08:22)
[2016-07-16] MEDS: CALCIUM/VITAMIN D (250/125) TAB PO SCH ×2 (08:22→21:59)
[2016-07-16] MEDS: EMTRICITABINE/TENOFOVIR TAB PO SCH (08:22)
[2016-07-16] MEDS: RALTEGRAVIR 400 MG TAB PO SCH ×2 (08:24→22:00)
[2016-07-16] MEDS: FAMOTIDINE 20 MG TAB PO SCH ×2 (08:24→21:59)
[2016-07-16] MEDS: LISINOPRIL 20 MG TAB PO SCH (08:24)
[2016-07-16] MEDS: FLUTICASONE 0.05% 16 GM NAS SPRAY NASAL SCH ×2 (08:24→21:00)
[2016-07-16] MEDS: APIXABAN 5 MG TABLET PO SCH ×2 (08:24→21:59)
[2016-07-16] MEDS: FERROUS SULFATE (EC) 325 MG TAB PO SCH ×2 (08:24→21:59)
--- NOTE | 2016-07-16 13:25 | CONS ---
Date/Time of Note Date/Time of Note DATE: 07/16/16 TIME: 13:23 Assessment/Plan Assessment/Plan Additional Assessment/Plan Assessment and recommendations; next 1. Patient admitted for bilateral pneumonia possibly PCP clinically markedly improved. Improved radiologically as well. 2. Prior history of PCP pneumonia in March of last year. 3. HIV positive. 4. History of DVT and PE. 5. Transgender male currently on hormone replacement therapy. Continue current treatment. Discontinue Solu-Medrol. Switch the patient to prednisone 40 mg daily with further tapering down in the next 48 hours. Consultation Date/Type/Reason Admit Date/Time Jul 10, 2016 at 08:48 Initial Consult Date 07/10/16 Type of Consultation: Pulmonary 24 HR Interval Summary Free Text/Dictation Patient condition is continually improving. Denies any shortness of breath, wheezing, sputum production or cough. Any fever chills. General exam; middle aged transgender male, currently in no distress awake and alert. Exam/Review of Systems Vital Signs Vitals Vital Signs Date Time Temp Pulse Resp B/P Pulse Ox O2 Delivery O2 Flow Rate FiO2 07/16/16 13:17 107 18 96 21 07/16/16 11:14 98.3 123/85 07/16/16 01:59 2.0 07/14/16 16:30 High Flow Intake and Output 07/15/16 07/15/16 07/16/16 15:00 23:00 07:00 Intake Total 1975 ml 1015 ml Output Total 900 ml 600 ml Balance 1075 ml 415 ml Exam HEENT examination; supple neck, no JVD. No lymphadenopathy. Midline trachea. No thyromegaly. Pharynx is clear. Patient has fair dentition. Pupils are midsize and reactive to light. No neck masses. No lymphadenopathy. Chest examination; clear to auscultation bilaterally. S1-S2 audible, no murmurs. Regular rhythm. Abdomen examination; soft, nontender. No organomegaly. Bowel sounds audible. Extremity examination; no peripheral edema. 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 Results Result Diagram: 07/16/16 0610 07/16/16 0610 Results 24 hrs Laboratory Tests Test 07/16/16 06:10 White Blood Count 12.1 H Red Blood Count 4.87 Hemoglobin 13.0 L Hematocrit 41.7 L Mean Corpuscular Volume 85.6 Mean Corpuscular Hemoglobin 26.7 L Mean Corpuscular Hemoglobin Concent 31.2 L Red Cell Distribution Width 16.8 H Platelet Count 402 Mean Platelet Volume 9.0 Neutrophils % 79.6 H Lymphocytes % 14.3 L Monocytes % 4.4 Eosinophils % 0.1 Basophils % 0.1 Nucleated Red Blood Cells % 0.0 Neutrophils # 9.6 H Lymphocytes # 1.7 Monocytes # 0.5 Eosinophils # 0.0 Basophils # 0.0 Nucleated Red Blood Cells # 0.0 Sodium Level 138 Potassium Level 4.5 Chloride Level 100 Carbon Dioxide Level 28 Anion Gap 15 Blood Urea Nitrogen 20 Creatinine 0.90 Glucose Level 136 Calcium Level 9.3 Medications Medications Current Medications Ondansetron HCl (Zofran Inj) 4 mg Q6H PRN IV NAUSEA AND/OR VOMITING; Start at 09:00 Lorazepam (Ativan) 0.5 mg Q6H PRN IV agitation; Start 07/10/16 at 09:00 Apixaban (Eliquis) 5 mg BID PO Last administered on 07/16/16 08:24; Admin Dose 5 MG; Start 07/10/16 at 09:00 Emtricitabine/ Tenofovir (Truvada) 1 tab DAILY PO Last administered on 08:22; Admin Dose 1 TAB; Start 07/10/16 at 09:00 Ferrous Sulfate (Ferrous Sulfate (Ec)) 325 mg BID PO Last administered on 08:24; Admin Dose 325 MG; Start 07/10/16 at 09:00 Fluticasone Propionate (Flonase 0.05% Nasal) 1 spray BID NASAL Last administered on 07/16/16 08:24; Admin Dose 1 SPRAY; Start 07/10/16 at 09:00 Lisinopril (Zestril) 20 mg DAILY PO Last administered on 07/16/16 08:24; Admin Dose 20 MG; Start 07/10/16 at 09:00 Multivitamins Therapeutic (Theragran) 1 tab DAILY PO Last administered on 08:22; Admin Dose 1 TAB; Start 07/10/16 at 09:00 Miscellaneous Medication (Isentress) 400 mg BID PO Last administered on 08:24; Admin Dose 400 MG; Start 07/10/16 at 09:00 Terbinafine HCl (Lamisil) 250 mg DAILY PO Last administered on 07/16/16 08:22 ; Admin Dose 250 MG; Start 07/10/16 at 09:00 Calcium/Vitamin D 1 tab 1 tab BID PO Last administered on 07/16/16 08:22; Admin Dose 1 TAB; Start 07/10/16 at 09:00 Azithromycin (Zithromax 500mg/ NS (Pmx)) 250 ml @ 250 mls/hr Q24H IVPB Last administered on 07/15/16 18:13; Admin Dose 250 MLS/HR; Start 07/10/16 at 18:00 Famotidine (Pepcid) 20 mg BID PO Last administered on 07/16/16 08:24; Admin Dose 20 MG; Start 07/11/16 at 21:00 Acetaminophen (Tylenol Tab) 650 mg Q6H PRN PO PAIN AND OR ELEVATED TEMP Last administered on 07/11/16 23:18; Admin Dose 650 MG; Start 07/11/16 at 14:30 Methylprednisolone Sodium Succinate (Solu-Medrol) 40 mg Q6 IV Last administered on 07/16/16 13:05; Admin Dose 40 MG; Start 07/12/16 at 12:00 Guaifenesin (Robitussin Liquid Cup) 200 mg Q4H PRN PO COUGH; Start 07/12/16 at 17:00 Olanzapine (Zyprexa) 20 mg HS PO Last administered on 07/15/16 22:05; Admin Dose 20 MG; Start 07/13/16 at 21:00 Morphine Sulfate (morphine) 1 mg Q2H PRN IV PAIN LEVEL 1-5 Last administered on 07/14/16 14:09; Admin Dose 1 MG; Start 07/14/16 at 12:00 Morphine Sulfate 2 mg 2 mg Q2H PRN IV SEVERE PAIN LEVEL 7-10 Last administered on 07/16/16 13:05; Admin Dose 2 MG; Start 07/14/16 at 12:00 Trimethoprim/ Sulfamethoxazole 15 ml/Dextrose 515 ml @ 343.333 mls/hr Q8 IVPB Last administered on 07/16/16 06:07; Admin Dose 343.333 MLS/HR; Start 07/14/16 at 14:00 Meropenem (Merrem 500 Mg/ 100 ml (Pmx)) 100 ml @ 200 mls/hr Q8 IVPB Last administered on 07/16/16 13:05; Admin Dose 200 MLS/HR; Start 07/14/16 at 14:00 Amitriptyline HCl (Elavil) 100 mg HS PO Last administered on 07/15/16 22:04; Admin Dose 100 MG; Start 07/14/16 at 21:30 ELIANE SINGLETON Jul 16, 2016 13:25
[2016-07-16] MEDS: predniSONE 20 MG TAB PO SCH (14:38)
--- NOTE | 2016-07-16 15:08 | PN ---
Date/Time of Note Date/Time of Note DATE: 07/16/16 TIME: 15:07 Assessment/Plan VTE Prophylaxis VTE Prophylaxis Intervention: LMWH Lines/Catheters IV [facility] Type [facility]from [facility] Saline Lock Urinary Cath still in place: No Assessment/Plan Chief Complaint/Hosp Course ASSESSMENT AND PLAN: 1. Pneumonia. The patient has been started on broad spectrum IV antibiotic , the admissions coordinator has been consulted, continue breathing treatment 2. History of human immunodeficiency virus. Continue HAART therapy. Infectious disease doctor has been consulted 3. History of pulmonary embolism. Continue Eliquis. No evidence of PE on CT of the chest 4. Essential hypertension, well controlled on lisinopril. 5. Gastroesophageal reflux disease. Continue PPI. 6. History of bipolar disorder. Continue Zyprexa. 7. Acute respiratory distress. Likely secondary to pneumonia, pulmonary edema. Continue IV antibiotics and diuretics We will continue to monitor patient closely. Further recommendations, management, and treatment as per clinical course. For DVT prophylaxis, on Eliquis. Plan to discharge home tomorrow if cleared by admissions coordinator Problems: Subjective 24 Hr Interval Summary Free Text/Dictation Patient denies any chest pain or shortness of breath Breathing status has improved significantly She is able to ambulate without any oxygen Tolerating oral intake Exam/Review of Systems Vital Signs Vitals Vital Signs Date Time Temp Pulse Resp B/P Pulse Ox O2 Delivery O2 Flow Rate FiO2 07/16/16 15:05 98.4 101 18 137/41 90 07/16/16 13:17 21 07/16/16 01:59 2.0 07/14/16 16:30 High Flow Intake and Output 07/15/16 07/15/16 07/16/16 15:00 23:00 07:00 Intake Total 1975 ml 1015 ml Output Total 900 ml 600 ml Balance 1075 ml 415 ml Exam General: The patient is well-developed, Not in acute distress. HEENT: Atraumatic, normocephalic. The pupils are equal and round . Neck: Supple with full range of motion. Chest: Normal expansion of the thorax during inspiration Lungs: Clear to auscultation bilaterally Heart: Normal S1-S2, Regular rhythm and rate. Abdomen: Soft , nontender, nondistended , bowel sounds are present. Extremities: Normal to inspection, no edema no cyanosis Neurologic: Normal mental status,The patient is awake, alert and oriented . Results Result Diagram: 3/30/17 0610 07/16/16 0610 Results 24 hrs Laboratory Tests Test 07/16/16 06:10 White Blood Count 12.1 H Red Blood Count 4.87 Hemoglobin 13.0 L Hematocrit 41.7 L Mean Corpuscular Volume 85.6 Mean Corpuscular Hemoglobin 26.7 L Mean Corpuscular Hemoglobin Concent 31.2 L Red Cell Distribution Width 16.8 H Platelet Count 402 Mean Platelet Volume 9.0 Neutrophils % 79.6 H Lymphocytes % 14.3 L Monocytes % 4.4 Eosinophils % 0.1 Basophils % 0.1 Nucleated Red Blood Cells % 0.0 Neutrophils # 9.6 H Lymphocytes # 1.7 Monocytes # 0.5 Eosinophils # 0.0 Basophils # 0.0 Nucleated Red Blood Cells # 0.0 Sodium Level 138 Potassium Level 4.5 Chloride Level 100 Carbon Dioxide Level 28 Anion Gap 15 Blood Urea Nitrogen 20 Creatinine 0.90 Glucose Level 136 Calcium Level 9.3 Medications Medications Current Medications Ondansetron HCl (Zofran Inj) 4 mg Q6H PRN IV NAUSEA AND/OR VOMITING; Start at 09:00 Lorazepam (Ativan) 0.5 mg Q6H PRN IV agitation; Start 07/10/16 at 09:00 Apixaban (Eliquis) 5 mg BID PO Last administered on 07/16/16 08:24; Admin Dose 5 MG; Start 07/10/16 at 09:00 Emtricitabine/ Tenofovir (Truvada) 1 tab DAILY PO Last administered on 08:22; Admin Dose 1 TAB; Start 07/10/16 at 09:00 Ferrous Sulfate (Ferrous Sulfate (Ec)) 325 mg BID PO Last administered on 08:24; Admin Dose 325 MG; Start 07/10/16 at 09:00 Fluticasone Propionate (Flonase 0.05% Nasal) 1 spray BID NASAL Last administered on 07/16/16 08:24; Admin Dose 1 SPRAY; Start 07/10/16 at 09:00 Lisinopril (Zestril) 20 mg DAILY PO Last administered on 07/16/16 08:24; Admin Dose 20 MG; Start 07/10/16 at 09:00 Multivitamins Therapeutic (Theragran) 1 tab DAILY PO Last administered on 08:22; Admin Dose 1 TAB; Start 07/10/16 at 09:00 Miscellaneous Medication (Isentress) 400 mg BID PO Last administered on 08:24; Admin Dose 400 MG; Start 07/10/16 at 09:00 Terbinafine HCl (Lamisil) 250 mg DAILY PO Last administered on 07/16/16 08:22 ; Admin Dose 250 MG; Start 07/10/16 at 09:00 Calcium/Vitamin D 1 tab 1 tab BID PO Last administered on 07/16/16 08:22; Admin Dose 1 TAB; Start 07/10/16 at 09:00 Azithromycin (Zithromax 500mg/ NS (Pmx)) 250 ml @ 250 mls/hr Q24H IVPB Last administered on 07/15/16 18:13; Admin Dose 250 MLS/HR; Start 07/10/16 at 18:00 Famotidine (Pepcid) 20 mg BID PO Last administered on 07/16/16 08:24; Admin Dose 20 MG; Start 07/11/16 at 21:00 Acetaminophen (Tylenol Tab) 650 mg Q6H PRN PO PAIN AND OR ELEVATED TEMP Last administered on 07/11/16 23:18; Admin Dose 650 MG; Start 07/11/16 at 14:30 Guaifenesin (Robitussin Liquid Cup) 200 mg Q4H PRN PO COUGH; Start 07/12/16 at 17:00 Olanzapine (Zyprexa) 20 mg HS PO Last administered on 07/15/16 22:05; Admin Dose 20 MG; Start 07/13/16 at 21:00 Morphine Sulfate (morphine) 1 mg Q2H PRN IV PAIN LEVEL 1-5 Last administered on 07/14/16 14:09; Admin Dose 1 MG; Start 07/14/16 at 12:00 Morphine Sulfate 2 mg 2 mg Q2H PRN IV SEVERE PAIN LEVEL 7-10 Last administered on 07/16/16 13:05; Admin Dose 2 MG; Start 07/14/16 at 12:00 Trimethoprim/ Sulfamethoxazole 15 ml/Dextrose 515 ml @ 343.333 mls/hr Q8 IVPB Last administered on 07/16/16 14:38; Admin Dose 343.333 MLS/HR; Start 07/14/16 at 14:00 Meropenem (Merrem 500 Mg/ 100 ml (Pmx)) 100 ml @ 200 mls/hr Q8 IVPB Last administered on 07/16/16 13:05; Admin Dose 200 MLS/HR; Start 07/14/16 at 14:00 Amitriptyline HCl (Elavil) 100 mg HS PO Last administered on 07/15/16 22:04; Admin Dose 100 MG; Start 07/14/16 at 21:30 Prednisone (Prednisone) 40 mg DAILY PO Last administered on 07/16/16 14:38; Admin Dose 40 MG; Start 07/16/16 at 13:30 HAYDE OGDEN MD Jul 16, 2016 15:08
--- NOTE | 2016-07-16 15:57 | PN ---
DATE: 07/16/2016 SUBJECTIVE: Patient is alert, looks comfortable. He is on room air. No shortness of breath. No f navneet. WBC 12.1, neutrophils 79.6, BUN 20, creatinine 0.90. ANTIMICROBIALS: 1. IV Bactrim. 2. IV meropenem. 3. Zithromax. PHYSICAL EXAMINATION: GENERAL: This is a morbidly obese, well-developed, middle-aged transgender man to woman who is aler t, in no distress. HEENT: Head atraumatic, normocephalic. Sclerae anicteric. Buccal mucosa pink. NECK: Supple. CHEST: Rise symmetrical. Breath sounds diminished to bases. HEART: S1, S2. ABDOMEN: Soft, bowel tones present. EXTREMITIES: Without cyanosis. ASSESSMENT: 1. Status post sepsis. 2. Bilateral pneumonia with possible pneumocystis pneumonia. 3. Human immunodeficiency virus, well controlled. 4. Morbid obesity. 5. History of hepatitis C virus and pulmonary emboli. 6. History of bipolar disorder. PLAN: The patient remains stable on appropriate antimicrobials. We are going to discontinue Zithro max. Continue Bactrim and steroid taper. Continue antiretroviral medications. Dictated By: NATY ALCARAZ BUSINESS DIVISION CHAIR for SILVANA CASTRO MD NI/NTS Conf#: [id number] DID#: [id number]
[2016-07-16] MEDS: AMITRIPTYLINE 50 MG TAB PO SCH (21:59)
[2016-07-16] MEDS: OLANZAPINE 5 MG TAB PO SCH (22:00)
[2016-07-16] MEDS: DEXTROSE IVPB SCH (22:01)
[2016-07-16] MEDS: TRIMETHOPRIM IVPB SCH (22:01)
[2016-07-16] MEDS: SULFAMETHOXAZOLE IVPB SCH (22:01)
[2016-07-17] VITALS (7 sets, daily range): BP systolic 135–160; BP diastolic 85–99; PULSE 98–100; RESP 20
[2016-07-17] MEDS: ACETYLCYSTEINE 20% 4 ML VIAL NEB SCH ×2 (00:57→08:02)
[2016-07-17] MEDS: ALBUTEROL/IPRATROPIUM (NEB) 3 ML AMP HHN SCH ×3 (00:57→07:52)
[2016-07-17] MEDS: morphine 2 MG INJ IV PRN ×5 (01:01→10:32)
[2016-07-17] MEDS: MEROPENEM 500 MG/100 ML (PMX) 100 ML IVPB SCH (05:12)
[2016-07-17] MEDS: FUROSEMIDE 20 MG INJ IV SCH (05:12)
[2016-07-17] MEDS: SULFAMETHOXAZOLE IVPB SCH (06:36)
[2016-07-17] MEDS: DEXTROSE IVPB SCH (06:36)
[2016-07-17] MEDS: TRIMETHOPRIM IVPB SCH (06:36)
--- NOTE | 2016-07-17 07:13 | CONS ---
Date/Time of Note Date/Time of Note DATE: 07/17/16 TIME: 07:09 Assessment/Plan Assessment/Plan Additional Assessment/Plan Assessment recommendations; next 1. Patient admitted for bilateral pneumonia likely PCP with significant clinical and radiological improvement. 2. Prior history of PCP pneumonia in March of last year. 3. HIV positive. 4. History of PE and DVT. 5. History of chronic pain and back surgery. 6. Right lower and right upper quadrant abdominal pain of uncertain significance at this point. Report on prednisone 30 mg a day. Continue current antibiotics. From a pulmonary standpoint the patient can be discharged home on a Medrol Dosepak as well as continuation of Bactrim. With long-term prophylactic dosing. Patient also will benefit from Levaquin 5 mg orally daily for at least 1 more week. Recommend observing the patient for any change in abdominal pain. Consultation Date/Type/Reason Admit Date/Time Jul 10, 2016 at 08:48 Initial Consult Date 07/10/16 Type of Consultation: Pulmonary 24 HR Interval Summary Free Text/Dictation Patient condition is stable. Denies any shortness of breath, coughing, wheezing. Any sputum production. Patient has been off oxygen and maintaining excellent O2 saturation. He however is complaining of right lower quadrant abdominal pain for the last couple of hours. Without any associated nausea vomiting constipation. General exam; diligent transgender male, currently in no distress. Awake and alert. Exam/Review of Systems Vital Signs Vitals Vital Signs Date Time Temp Pulse Resp B/P Pulse Ox O2 Delivery O2 Flow Rate FiO2 07/17/16 05:42 96 20 94 Nasal Cannula 2.0 07/17/16 04:05 97.5 160/99 07/16/16 16:41 21 Intake and Output 07/16/16 07/16/16 07/17/16 15:00 23:00 07:00 Intake Total 2630 ml 538.4 ml Output Total 1200 ml Balance 1430 ml 538.4 ml Exam HEENT exam is; supple neck, no JVD. No lymphadenopathy. Midline trachea. No thyromegaly. Pharynx is clear. Chest examination; clear to auscultation bilaterally. S1-S2 audible, no murmurs. Regular rhythm. Abdomen examination; soft, no organomegaly. Bowel is audible. There is very mild right upper and right lower quadrant tenderness. Without any rebound. Extremity exam is; no peripheral edema. Pulses 1+ bilaterally. 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 Results Result Diagram: 07/16/1610 07/16/16609 Medications Medications Current Medications Ondansetron HCl (Zofran Inj) 4 mg Q6H PRN IV NAUSEA AND/OR VOMITING; Start at 09:00 Lorazepam (Ativan) 0.5 mg Q6H PRN IV agitation; Start 07/10/16 at 09:00 Apixaban (Eliquis) 5 mg BID PO Last administered on 07/16/16 21:59; Admin Dose 5 MG; Start 07/10/16 at 09:00 Emtricitabine/ Tenofovir (Truvada) 1 tab DAILY PO Last administered on 08:22; Admin Dose 1 TAB; Start 07/10/16 at 09:00 Ferrous Sulfate (Ferrous Sulfate (Ec)) 325 mg BID PO Last administered on 21:59; Admin Dose 325 MG; Start 07/10/16 at 09:00 Fluticasone Propionate (Flonase 0.05% Nasal) 1 spray BID NASAL Last administered on 07/16/16 08:24; Admin Dose 1 SPRAY; Start 07/10/16 at 09:00 Lisinopril (Zestril) 20 mg DAILY PO Last administered on 07/16/16 08:24; Admin Dose 20 MG; Start 07/10/16 at 09:00 Multivitamins Therapeutic (Theragran) 1 tab DAILY PO Last administered on 08:22; Admin Dose 1 TAB; Start 07/10/16 at 09:00 Miscellaneous Medication (Isentress) 400 mg BID PO Last administered on 22:00; Admin Dose 400 MG; Start 07/10/16 at 09:00 Terbinafine HCl (Lamisil) 250 mg DAILY PO Last administered on 07/16/16 08:22 ; Admin Dose 250 MG; Start 07/10/16 at 09:00 Calcium/Vitamin D (Oyster Shell/ Vit-D (250/125)) 1 tab BID PO Last administered on 07/16/16 21:59; Admin Dose 1 TAB; Start 07/10/16 at 09:00 Famotidine (Pepcid) 20 mg BID PO Last administered on 07/16/16 21:59; Admin Dose 20 MG; Start 07/11/16 at 21:00 Acetaminophen (Tylenol Tab) 650 mg Q6H PRN PO PAIN AND OR ELEVATED TEMP Last administered on 07/11/16 23:18; Admin Dose 650 MG; Start 07/11/16 at 14:30 Guaifenesin (Robitussin Liquid Cup) 200 mg Q4H PRN PO COUGH; Start 07/12/16 at 17:00 Olanzapine (Zyprexa) 20 mg HS PO Last administered on 07/16/16 22:00; Admin Dose 20 MG; Start 07/13/16 at 21:00 Morphine Sulfate (morphine) 1 mg Q2H PRN IV PAIN LEVEL 1-5 Last administered on 07/14/16 14:09; Admin Dose 1 MG; Start 07/14/16 at 12:00 Morphine Sulfate 2 mg 2 mg Q2H PRN IV SEVERE PAIN LEVEL 7-10 Last administered on 07/17/16 07:02; Admin Dose 2 MG; Start 07/14/16 at 12:00 Meropenem (Merrem 500 Mg/ 100 ml (Pmx)) 100 ml @ 200 mls/hr Q8 IVPB Last administered on 07/17/16 05:12; Admin Dose 200 MLS/HR; Start 07/14/16 at 14:00 Amitriptyline HCl (Elavil) 100 mg HS PO Last administered on 07/16/16 21:59; Admin Dose 100 MG; Start 07/14/16 at 21:30 Prednisone 40 mg 40 mg DAILY PO Last administered on 07/16/16 14:38; Admin Dose 40 MG; Start 07/16/16 at 13:30 Trimethoprim/ Sulfamethoxazole/ Dextrose (Bactrim/D5W) 538.4 ml @ 350 mls/hr Q8 IVPB Last administered on 07/17/16 06:36; Admin Dose 350 MLS/HR; Start at 22:00 ELIANE SINGLETON Jul 17, 2016 07:13
[2016-07-17 07:17] LABS: ADD SCAN DIFF NO
[2016-07-17 07:24] LABS: BASOPHILS % 0.1 % (0.0-2.0); EOSINOPHILS # 0.1 10^3/ul (0.0-0.5); EOSINOPHILS % 0.7 % (0.0-7.0); HEMATOCRIT 40.8 % (42.0-52.0); HEMOGLOBIN 12.7 g/dl (14.0-18.0); LYMPHOCYTES # 3.3 10^3/ul (0.8-2.9); LYMPHOCYTES % 24.6 % (15.0-51.0); MEAN CORPUSCULAR HEMOGLOBIN 26.3 pg (29.0-33.0); MEAN CORPUSCULAR HGB CONC 31.1 g/dl (32.0-37.0); MEAN CORPUSCULAR VOLUME 84.6 fl (82.0-101.0); MONOCYTE # 1.1 10^3/ul (0.3-0.9); MONOCYTES % 8.2 % (0.0-11.0); NEUTROPHIL # 8.6 10^3/ul (1.6-7.5); NEUTROPHILS % 64.6 % (39.0-77.0); PLATELET COUNT 442 10^3/UL (140-415); RED BLOOD COUNT 4.82 10^6/ul (4.70-6.10); RED CELL DISTRIBUTION WIDTH 16.7 % (11.5-14.5); WHITE BLOOD COUNT 13.4 10^3/ul (4.8-10.8)
[2016-07-17 07:36] LABS: POTASSIUM 3.7 mmol/L (3.5-5.1)
[2016-07-17 07:39] LABS: CALCIUM 9.1 mg/dl (8.4-10.2); CREATININE 0.84 mg/dl (0.61-1.24)
[2016-07-17] MEDS: FLUTICASONE 0.05% 16 GM NAS SPRAY NASAL SCH (10:35)
[2016-07-17] MEDS: EMTRICITABINE/TENOFOVIR TAB PO SCH (10:36)
[2016-07-17] MEDS: CALCIUM/VITAMIN D (250/125) TAB PO SCH (10:37)
[2016-07-17] MEDS: TERBINAFINE 250 MG TAB PO SCH (10:37)
[2016-07-17] MEDS: RALTEGRAVIR 400 MG TAB PO SCH (10:37)
[2016-07-17] MEDS: LISINOPRIL 20 MG TAB PO SCH (10:38)
[2016-07-17] MEDS: APIXABAN 5 MG TABLET PO SCH (10:38)
[2016-07-17] MEDS: MULTIVITAMINS THERAPEUTIC TAB PO SCH (10:38)
[2016-07-17] MEDS: FERROUS SULFATE (EC) 325 MG TAB PO SCH (10:39)
[2016-07-17] MEDS: FAMOTIDINE 20 MG TAB PO SCH (10:39)
[2016-07-17] MEDS: predniSONE 20 MG TAB PO SCH (10:39)
--- NOTE | 2016-07-17 11:15 | PDOCDIS ---
Discharge Instructions CONDITION Patient Condition: Good HOME CARE INSTRUCTIONS: Diet Instructions: Reduced Calorie ACTIVITY: Activity Restrictions: No Restrictions FOLLOW UP/APPOINTMENTS Appointments Follow up with PCP in one week Follow up with ID as out-pt HAYDE OGDEN MD Jul 17, 2016 11:15
[2016-07-17] MEDS ORDERED: LEVO500T10 PO (11:20)
[2016-07-17] MEDS ORDERED: BACTDS PO (11:20)
[2016-07-17] MEDS ORDERED: IPRA4AER INHALATION (11:20)
[2016-07-17] MEDS ORDERED: MED4DP PO (11:20)
--- NOTE | 2016-07-17 14:11 | DS ---
DATE OF ADMISSION: 07/10/2016 DATE OF DISCHARGE: 07/17/2016 CONSULTANTS: 1. ____ 2. Dr. Olivia Clark. 3. Fredrick Solis MD PROCEDURES: None. Echocardiogram demonstrated normal left ventricle systolic function, normal left ventricle cavity si ze, normal left ventricle wall thickness, ejection fraction ____ 65%, normal right ventricular size, normal right ventricular systolic function. Left and right atrium is normal in size. No significa nt valvular stenosis or regurgitation seen. Normal pericardium with no significant pericardial effu nely. DIAGNOSES: 1. Acute respiratory distress, likely secondary to pneumonia, resolved. The patient's oxygen satur ation is normal on room oxygen. 2. Pneumonia, status post broad spectrum IV antibiotic. Patient was discharged on Bactrim and Leva analia secondary to history of human immunodeficiency virus. 3. History of human immunodeficiency virus. Continue HAART therapy. 4. History of pulmonary embolism, on Eliquis. 5. Essential hypertension, well controlled on lisinopril. 6. Gastroesophageal reflux disease. Continue proton pump inhibitor. 7. History of bipolar disorder. Continue Zyprexa. 8. Pulmonary edema, status post Lasix. MEDICATIONS: 1. Combivent. 2. Levaquin. 3. Medrol Dosepak. 4. Bactrim-DS. 5. Eliquis. 6. Calcium plus vitamin D. 7. Truvada. 8. Ferrous sulfate. 9. Flonase. 10. Lisinopril. 11. Multivitamin. 12. Zyprexa. 13. Protonix. 13. Isentress. 14. Terbinafine. ALLERGIES: NO KNOWN DRUG ALLERGIES. DISPOSITION: Home. DIET: Regular diet. HOSPITAL COURSE: This is a 50-year-old transgender female who preferred to be referred to as Reza seaman with past medical history of HIV on HAART therapy for her hepatitis C, status post treatment, bip olar disorder, hypertension, history of staph pneumonia, pneumothorax, history L4-L5 fusion surgery with revision, history of pulmonary embolism on Eliquis, who presented to [facility] secondary to having 5 days of shortness of breath, cough, congestion and fever and chills. The p atient denied any chest pain or pleuritic pain. No sick contact, no recent travel history. Upon a rrival, the patient was treated with Zofran, Dilaudid, normal saline, vancomycin, cefepime, Solu-Med rol and breathing treatment and was admitted to ICU secondary to respiratory distress, was placed o n BiPAP, which was transitioned to face mask and then patient was placed on high flow within via elli al cannula. She continued to be managed with breathing treatment, broad spectrum IV antibiotics and was seen and evaluated by reception specialist and infectious disease doctor. She was able to be weaned o ff from nasal cannula, was transferred to telemetry floor where she was continued on respiratory the rapy and regarding her bipolar disorder, the patient was continued on her home medication Zyprexa. Regarding her GERD, continue PPI. Patient was placed on IV Solu-Medrol during the course of the hospitalization secondary to respirato ry distress. In regard to her history of PE, patient had a CT of the chest which did not show any e vidence of pulmonary embolism. She was continued on Eliquis at this time. Today, the patient did n ot require any oxygen. She has been able to tolerate oral intake. The patient has been cleared fro m per medical standpoint, infectious disease standpoint and pulmonology for discharge. Her vitals: Temperature 97.7, pulse 92, respirations 20, blood pressure 135/90, oxygen saturation 92% in room a ir. Her laboratories: WBC 13.4, hemoglobin 12.7, hematocrit 40.8, platelets 442. Sodium 138, pota ssium 3.7, chloride 100, bicarbonate 27, BUN 17, creatinine 0.84, glucose 91, calcium 9.1, magnesium 2.4. CONDITION AT TIME OF DISCHARGE: Stable. Dictated By: HAYDE BEY/NTS Conf#: [id number] DID#: [id number]
--- NOTE | 2016-07-17 15:41 | CONS ---
Date/Time of Note Date/Time of Note DATE: 07/17/16 TIME: 15:39 Assessment/Plan Assessment/Plan Chief Complaint/Hosp Course SUBJECTIVE: Patient is alert, comfortable on room air. No shortness of breath. No fevers. ANTIMICROBIALS: 1. IV Bactrim. 2. IV meropenem. PHYSICAL EXAMINATION: GENERAL: This is a morbidly obese, well-developed, middle-aged transgender man to woman who is alert, in no distress. HEENT: Head atraumatic, normocephalic. Sclerae anicteric. Buccal mucosa pink. NECK: Supple. CHEST: Rise symmetrical. Breath sounds diminished to bases. HEART: S1, S2. ABDOMEN: Soft, bowel tones present. EXTREMITIES: Without cyanosis. ASSESSMENT: 1. Status post sepsis. 2. Bilateral pneumonia with possible pneumocystis pneumonia. 3. Human immunodeficiency virus, well controlled. 4. Morbid obesity. 5. History of hepatitis C virus and pulmonary emboli. 6. History of bipolar disorder. PLAN: Improving, will dc Merrem, continue other abx, steroids taper, SMITH DW pt Problems: Consultation Date/Type/Reason Admit Date/Time Jul 10, 2016 at 08:48 Initial Consult Date 07/11/16 Type of Consultation: id Exam/Review of Systems Vital Signs Vitals Vital Signs Date Time Temp Pulse Resp B/P Pulse Ox O2 Delivery O2 Flow Rate FiO2 07/17/16 12:02 98 07/17/16 11:55 97.7 20 92 07/17/16 07:52 2.0 07/17/16 07:52 Nasal Cannula 07/16/16 16:41 21 Intake and Output 07/16/16 07/16/16 07/17/16 14:59 22:59 06:59 Intake Total 2630 ml 638.4 ml Output Total 1200 ml Balance 1430 ml 638.4 ml Results Result Diagram: 07/17/16 0630 07/17/16 0630 Results 24 hrs Laboratory Tests Test 07/17/16 06:30 White Blood Count 13.4 H Red Blood Count 4.82 Hemoglobin 12.7 L Hematocrit 40.8 L Mean Corpuscular Volume 84.6 Mean Corpuscular Hemoglobin 26.3 L Mean Corpuscular Hemoglobin Concent 31.1 L Red Cell Distribution Width 16.7 H Platelet Count 442 H Mean Platelet Volume 9.0 Neutrophils % 64.6 Lymphocytes % 24.6 Monocytes % 8.2 Eosinophils % 0.7 Basophils % 0.1 Nucleated Red Blood Cells % 0.0 Neutrophils # 8.6 H Lymphocytes # 3.3 H Monocytes # 1.1 H Eosinophils # 0.1 Basophils # 0.0 Nucleated Red Blood Cells # 0.0 Sodium Level 138 Potassium Level 3.7 Chloride Level 100 Carbon Dioxide Level 27 Anion Gap 15 Blood Urea Nitrogen 17 Creatinine 0.84 Glucose Level 98 Calcium Level 9.1 NATY ALCARAZ NP Jul 17, 2016 15:41
== END 2016-07-17 12:25 | disposition home or self-care (01) | DRG 974 ==
LOC: E/R 05:45 → ICU 08:48 → TEL 07-14 16:31
PROVIDERS: ADMIT Family Medicine; ATTEND Family Medicine
DX: B20 Human immunodeficiency virus [HIV] disease (principal); B59 Pneumocystosis; J96.01 Acute respiratory failure with hypoxia; J81.1 Chronic pulmonary edema; J18.9 Pneumonia, unspecified organism; J44.1 Chronic obstructive pulmonary disease with (acute) exacerbation; I10 Essential (primary) hypertension; Z86.711 Personal history of pulmonary embolism; Z79.02 Long term (current) use of antithrombotics/antiplatelets; E66.3 Overweight; Z68.39 Body mass index [BMI] 39.0-39.9, adult; Z72.0 Tobacco use; F31.9 Bipolar disorder, unspecified; K21.9 Gastro-esophageal reflux disease without esophagitis
CPT/HCPCS: 36415; 36600; 71010; 71275; 80048; 80053; 80307; 81001; 81003; 82550; 82553; 82803; 82962; 83605; 83615; 83735; 83880; 84100; 84145; 84484; 85025; 85610; 85651; 85730; 86140; 86360; 86635; 87040; 87070; 87081; 87086; 87385; 87536; 93005; 93306; 94640; 94644; 94660; 94664; 96365; 96366; 96367; 96375; J1940; J0456; J0692; J0696; J1170; J2185; J2270; J2405; J2543; J2920; J2930; J3370; J7030; J7060; J7512; Q9967

== ENCOUNTER 2016-12-22 11:29 | Emergency (ER) | payer OTHER ==
[~2016-12-22] VITALS: Ht 182.9 cm; Wt 90.0 kg
[~2016-12-22 11:29] MED LIST changes: -ALBU8.5H5 INH; -AMIT100T2 PO; -ASC500 PO; -ASPI-664 PO; -AZIT250T6 PO; +BACTDS PO; +CALC-143 PO; -CEPH500C PO; +FLUT9.9S NASAL; +IPRA4AER INHALATION; +LEVO500T10 PO; -LISI10TA2 PO; +LISI20TA11 PO; +MED4DP PO; -POLY17PO6 PO; +TERB250T9 PO
[2016-12-22 11:44] VITALS: Ht 182.9 cm; Wt 90.0 kg
--- NOTE | 2016-12-22 12:17 | ERD ---
ER Documentation Chief Complaint Date/Time DATE: 12/22/16 TIME: 12:15 Chief Complaint back pain,chronick HPI 51-year-old male open (transgender), stated she was brought in here by ambulance for back pain. Stated that she had a ground level fall a couple of hours ago, landed on her back.Able to walk after the fall but is requesting an x -ray of her hip and lumbar spine. Denies headache, loss of consciousness, dizziness, blurry vision, changes in vision, photophobia, facial pain, ear pain, throat pain, difficulty swallowing, neck pain, shoulder pain, chest pain, cough, hemoptysis, abdominal pain, back pain, loss of appetite, nausea, vomiting, hematochezia, diarrhea, constipation, urinary symptoms, , the possibility of being , bladder and bowel incontinences, extremity weakness, extremity tenderness, numbness or tingling sensation, difficulty walking, recent travel, recent exposure to illness, recent antibiotic use in the last 3 months, fever, chills. No known drug allergies. Past medical history of HIV positive, chronic back pain, depression. Surgical history: Stated that she had a back surgery. Dictation: Truvada, Elavil, Zyprexa, isometrics. Does not work at this time. Smokes 10 sticks of cigarettes a day occasional drinks alcoholic beverages. Stated that she occasionally uses medical marijuana. 8 ROS All systems reviewed and are negative except as per history of present illness. Medications Home Meds Active Scripts Cyclobenzaprine Hcl* (Cyclobenzaprine Hcl*) 10 Mg Tablet, 10 MG PO Q12, #15 TAB Prov:IQRA ANDINO 12/22/16 Albuterol/Ipratropium* (Combivent Respimat*) 20-100 Mcg/Inh - 4 Gm Aer.w.adap, 1 PUFF INHALATION QID, #1 INHALER Prov:HAYDE OGDEN MD 07/17/16 Methylprednisolone* (Medrol* DOSE PACK) 4 Mg/Dose-Pack Tab.ds.pk, 4 MG PO . DIRECTED for 7 Days, PACKET Prov:HAYDE OGDEN MD 07/17/16 Levofloxacin* (Levofloxacin*) 500 Mg Tablet, 500 MG PO DAILY, #7 TAB Prov:HAYDE OGDEN MD 3/31/17 Sulfamethoxazole-Trimethoprim* (Bactrim* DS) 800-160 Mg Tab, 1 TAB PO BID, #45 TAB Prov:HAYDE OGDEN MD 07/17/16 Apixaban* (Eliquis*) 2.5 Mg Tablet, 5 MG PO BID for 30 Days, TAB Prov:YUDY CINTRON 04/03/15 Reported Medications Ferrous Sulfate* (Ferrous Sulfate*) 325 Mg Tabec, 325 MG PO BID, TAB 07/10/16 Fluticasone Propionate (Flonase Allergy Relief) 9.9 Ml [place].susp, 1 SPRAY NASAL BID, #1 BOTTLE TO EACH NOSTRIL 07/10/16 Terbinafine Hcl* (Terbinafine Hcl*) 250 Mg Tablet, 250 MG PO DAILY, TAB 07/10/16 Calcium Citrate/Vitamin D (Citracal-Vitamin D 200 MG-250) 1 Each Tablet, 1 EACH PO BID, TAB 07/10/16 Olanzapine* (Zyprexa*) 10 Mg Tablet, 20 MG PO DAILY, #30 TAB 07/10/16 Lisinopril* (Lisinopril*) 20 Mg Tablet, 20 MG PO DAILY, #30 TAB 07/10/16 Multivitamins* (Once Daily*) 1 Tab Tablet, 1 TAB PO DAILY, TAB 01/31/15 Pantoprazole* (Protonix*) 40 Mg Tablet.dr, 40 MG PO DAILY 03/19/13 Emtricitabine-Tenofovir* (Truvada*) 1 Tab Tab, 1 TAB PO DAILY 03/19/13 Raltegravir Potassium* (Isentress*) 400 Mg Tablet, 400 MG PO BID 03/19/13 Allergies Allergies: Coded Allergies: No Known Allergy (Unverified , 07/10/16) PMhx/Soc History of Surgery: Yes (BACK SX 2008, 02/2015, ) Anesthesia Reaction: No Hx Neurological Disorder: No Hx Respiratory Disorders: Yes Hx Cardiac Disorders: Yes (HTN) Hx Psychiatric Problems: Yes (DEPRESSION) Hx Miscellaneous Medical Probl: Yes (OBESITY,M DEPRESSION, HEP C, BACK SURGERY) Hx Alcohol Use: Yes (SOCIALLY) Hx Substance Use: No Hx Tobacco Use: Yes (1PK A DAY X 40YRS) Smoking Status: Current every day smoker Physical Exam Vitals Vital Signs Date Time Temp Pulse Resp B/P Pulse Ox O2 Delivery O2 Flow Rate FiO2 12/22/16 14:03 98.4 110 22 128/72 99 Room Air 12/22/16 11:44 98.1 60 18 172/60 99 Physical Exam Const: [] Head: Atraumatic Eyes: Normal Conjunctiva ENT: Normal External Ears, Nose and Mouth. Neck: Full range of motion..~ No meningismus. Resp: Clear to auscultation bilaterally Cardio: Regular rate and rhythm, no murmurs Abd: Soft, non tender, non distended. Normal bowel sounds Skin: No petechiae or rashes Back: No midline or flank tenderness Ext: No cyanosis, or edema. C-spine/T-spine/L-spine is good and full range of motion without swelling/discoloration/bulging/point of tenderness. Positive straight leg test bilaterally. No leg shortening. Bilateral hips are unremarkable and stable. No calf tenderness. Bilateral knees is unremarkable. Bilateral ankles/feet are unremarkable. Circulation sensation is intact. Pedal pulses are present and unremarkable bilaterally. No neurovascular deficits. Bilateral upper extremities are unremarkable. Neur: Awake and alert. Psych: Normal Mood and Affect Results 24 hrs Current Medications Medications (Trade) Dose Ordered Sig/Tanner Route PRN Reason Start Time Stop Time Status Last Admin Dose Admin Morphine Sulfate (morphine) 4 mg ONCE ONCE IM 12/22/16 12:30 12/22/16 12:31 DC 12/22/16 12:32 Procedures/MDM Examination: Please see physical examination. Disease process, medical treatment was explained to the patient and family member. They verbalized understanding and agreed with the diagnostic tests, medical treatment, and follow-up care. Radiology: X-ray of the lumbar spine Impression: Overall, no change in 02/01/2015. Expected changes related to bilateral L5 laminectomy and right L5-S1 fusion. Marked bilateral facet arthropathy at L5-S1. X-ray of the pelvis Impression: No displaced fracture identified on this single frontal view of the pelvis. Right L5-S1 and the fusion with pedicle screws and sherry. Blood works unremarkable except Treatment: Morphine 4 mg IM. Re-evaluation: Denies headache, dizziness, blurry vision, neck pain, shoulder pain, chest pain, back pain, abdominal pain, nausea, vomiting. No episode of emesis in the emergency department. Alert and oriented 4. Speaks full and clear sentences. Respirations even and unlabored. Lung sounds clear to auscultation. Active bowel sounds. There is no right upper/right lower/ epigastric/left upper/left lower abdominal tenderness and light and deep palpation. Negative on Rovsings sign. Negative Hector sign. No peritoneal signs. Ambulatory with steady gait. No neurovascular deficits. No neurological deficits. C-spine/T-spine/L-spine is good and full range of motion without swelling/discoloration/bulging/point of tenderness. Positive straight leg test bilaterally. No leg shortening. Bilateral hips are unremarkable and stable. No calf tenderness. Bilateral knees is unremarkable. Bilateral ankles /feet are unremarkable. Circulation sensation is intact. Pedal pulses are present and unremarkable bilaterally. No neurovascular deficits. Bilateral upper extremities are unremarkable. Consultation: None. Differential diagnosis: Fracture versus displacement versus contusion versus sprain Medical decision makin-year-old male open (transgender), stated she was brought in here by ambulance for back pain. Stated that she had a ground level fall a couple of hours ago, landed on her back.Able to walk after the fall but is requesting an x-ray of her hip and lumbar spine. Patient's complaint, patient 's history about her complaint, patient's chronic back pain, diagnostic test results, my reevaluation after treatment are consistent my final diagnosis of chronic back pain, sciatica, musculoskeletal spasms. Medications prescribed are the following: Flexeril. Patient and family member are made aware of the side effects and adverse reactions of the medications prescribed. Instructed on when to seek emergent and medical attention in case allergic/anaphylactic reactions or severe side effects and or adverse reactions to medications. Patient and family member verbalized understanding. Patient instructed Instructed to follow-up with his PCP in 24-48 hours. PCP to refer patient to his pain specialist. Instructed to Call 911 for chest pain, shortness of breath. Advised to come back here in ED as soon as possible for severity of symptoms which includes but not limited to: any new symptoms; shortness of breath/difficulty of breathing; cardiovascular changes; severe gastrointestinal symptoms; signs and symptoms of bleeding and or infection; signs of compartment syndrome/neurovascular changes; neurological changes/deficits. Patient and family member verbalized understanding. Upon discharge, patient is alert and oriented x 4, speaks full and clear sentences, denies pain, has no neurological deficits, has no neurovascular deficits, difficulty of breathing. Breathing even and unlabored. Lung sounds are clear to auscultation. Not in distress. Appears comfortable. Ambulatory with steady gait. Appears satisfied with care provided here in ED. Departure Diagnosis: Primary Impression: Back pain Additional Impressions: Injury of back Chronic back pain Sciatica Muscle spasm Condition: Stable Additional Instructions: Instructed to follow-up with his PCP in 24-48 hours. PCP to refer patient to his pain specialist. Instructed to Call 911 for chest pain, shortness of breath. Advised to come back here in ED as soon as possible for severity of symptoms which includes but not limited to: any new symptoms; shortness of breath/difficulty of breathing; cardiovascular changes; severe gastrointestinal symptoms; signs and symptoms of bleeding and or infection; signs of compartment syndrome/neurovascular changes; neurological changes/deficits. Patient and family member verbalized understanding. IQRA ANDINO Dec 22, 2016 12:17
[2016-12-22] MEDS ORDERED: morphine 10 MG INJ IM ONE (12:30)
--- NOTE | 2016-12-22 13:41 | RADRPT ---
PROCEDURE: XR Pelvis. CLINICAL INDICATION: Pain TECHNIQUE: AP views of the pelvis with cranial and caudal projection. COMPARISON: No prior studies are available for comparison. FINDINGS: Frontal projections the pelvis demonstrate no displaced fracture. Both femoral heads are anatomicall y seated. Pubic symphysis is intact. There is right main effusion of L5 and S1 and probable laminect miki defect. There is moderate degenerative change of the right SI joint. The sacral arches are intac t. IMPRESSION: No displaced fracture identified on this single frontal view of the pelvis. Right L5-S1 and the fusion with pedicle screws and sherry RPTAT: HH .Taqueria Johansen MD, MD Date Time Electronically viewed and signed by .Taqueria Johansen MD, on 12/22/2016 13:40 .W/
--- NOTE | 2016-12-22 13:43 | RADRPT ---
PROCEDURE: Lumbar spine radiographs CLINICAL INDICATION: Pain. COMPARISON: Radiograph of 02/01/2015. TECHNIQUE: AP, lateral, and coned-down L5-S1 views. FINDINGS: Bilateral L5 laminectomies with placement of L5-S1 disk spacer. Unilateral right L5-S1 fusion with pedicle screws and sherry. Marked bilateral L5 S1 facet arthropathy. 2 mm lucency about the right L5 screw, unchanged. No clear subluxation identified. No acute fracture or vertebral height loss. IMPRESSION: Overall, no change in 02/01/2015 1. Expected changes related to bilateral L5 laminectomy and right L5-S1 fusion. 2. Marked bilateral facet arthropathy at L5-S1. RPTAT: PP Physician Tobin Date Time Electronically viewed and signed by Physician Tobin on 12/22/2016 13:42 LG/
[2016-12-22] MEDS ORDERED: CYCL-319 PO (13:52)
[2016-12-22 14:03] VITALS: BP 128/72; PULSE 110; RESP 22; TEMP 98.4
== END 2016-12-22 14:03 | disposition home or self-care (01) ==
LOC: FTE 11:29
DX: S29.9XXA Unspecified injury of thorax, initial encounter (principal); M54.30 Sciatica, unspecified side; I10 Essential (primary) hypertension; E66.9 Obesity, unspecified; F17.210 Nicotine dependence, cigarettes, uncomplicated; W18.39XA Other fall on same level, initial encounter; Z68.26 Body mass index [BMI] 26.0-26.9, adult
CPT/HCPCS: 72100; 72190; 96372; J2270; Z7502

== ENCOUNTER 2017-05-30 12:06 | Emergency (ER) | END 2017-05-30 16:01 | disposition home or self-care (01) ==

== ENCOUNTER 2018-07-09 14:49 | Emergency (ER) | payer OTHER ==
[~2018-07-09] VITALS: Wt 100.0 kg
[~2018-07-09 14:49] MED LIST changes: +CYCL10TA7 PO; +HYDR-4011 PO; +ISEN400 PO; +LISI-471 PO; -LISI20TA11 PO; +ONDA8TAB14 PO; -RALT400T4 PO; +TERB250T13 PO; -TERB250T9 PO
[2018-07-09] MEDS ORDERED: LIDOCAINE 2%/EPI MPF (SDV) 20 ML VIAL INJ STA (17:26)
[2018-07-09] MEDS ORDERED: STERILE WATER 1L IRRIG BTL IRR STA (17:26)
[2018-07-09] MEDS ORDERED: DIPHTH/TET/ACEL PERTUSS (ADULT) 0.5 ML VIAL IM* ONE (17:30)
[2018-07-09] MEDS ORDERED: HYDROCODONE/APAP (5/325) TAB PO ONE (17:30)
[2018-07-09] MEDS ORDERED: HYDR-4011 PO (18:47)
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
[2018-07-09 19:19] VITALS: BP 114/79; PULSE 104; RESP 19
== END 2018-07-09 19:19 | disposition home or self-care (01) ==
LOC: FTE 14:49
DX: S41.111A Laceration without foreign body of right upper arm, initial encounter (principal); I10 Essential (primary) hypertension; F17.210 Nicotine dependence, cigarettes, uncomplicated; Y04.0XXA Assault by unarmed brawl or fight, initial encounter; Z23 Encounter for immunization
CPT/HCPCS: 12002; 90471; 90715; A4217; Z7502; Z7610

== ENCOUNTER 2018-07-15 11:29 | Emergency (ER) | payer OTHER ==
[~2018-07-15] VITALS: Wt 110.1 kg
[2018-07-15 11:46] VITALS: BP 123/77; PULSE 132; RESP 20; Wt 110.1 kg
[2018-07-15] MEDS ORDERED: CEPH-443 PO (12:51)
--- NOTE | 2018-07-15 12:56 | ERD ---
ER Documentation Chief Complaint Chief Complaint SUTURE REMOVAL, STATES PAIN TO SITE, REDNESS AND MILD SWELL NOTED HPI 52-year-old male patient who is HIV positive, has hypertension presents to the ED for a suture removal and wound check. Patient reports that there has been some slight redness and swelling to the site of the laceration. Denies any nausea, vomiting, fever, streaking, abdominal pain, chest pain, shortness of breath. ROS All systems reviewed and are negative except as per history of present illness. Medications Home Meds Active Scripts Cephalexin* (Keflex*) 500 Mg Capsule, 500 MG PO QID for 7 Days, CAP Prov:JAX CONNORS PA-C 07/15/18 Hydrocodone/Acetaminophen (Temple 5-325 Tablet) 1 Each Tablet, 1 TAB PO Q6H PRN for PAIN, #7 TAB Prov:AUSTIN PRECIADO MD 07/09/18 Ondansetron (Ondansetron Odt) 8 Mg Tab.rapdis, 8 MG PO Q6H PRN for NAUSEA AND/OR VOMITING, #10 TAB Prov:AUSTIN PRECIADO MD 05/30/17 Hydrocodone/Acetaminophen (Temple 5-325 Tablet) 1 Each Tablet, 1 TAB PO Q6H PRN for PAIN, #10 TAB Prov:AUSTIN PRECIADO MD 05/30/17 Cyclobenzaprine Hcl* (Cyclobenzaprine Hcl*) 10 Mg Tablet, 10 MG PO Q12, #15 TAB Prov:IQRA ANDINO 12/22/16 Albuterol/Ipratropium* (Combivent Respimat*) 20-100 Mcg/Inh - 4 Gm Aer.w.adap, 1 PUFF INHALATION QID, #1 INHALER Prov:HAYDE OGDEN MD 07/17/16 Methylprednisolone* (Medrol* DOSE PACK) 4 Mg/Dose-Pack Tab.ds.pk, 4 MG PO . DIRECTED for 7 Days, PACKET Prov:HAYDE OGDEN MD 07/17/16 Levofloxacin* (Levofloxacin*) 500 Mg Tablet, 500 MG PO DAILY, #7 TAB Prov:HAYDE OGDEN MD 07/17/16 Sulfamethoxazole-Trimethoprim* (Bactrim* DS) 800-160 Mg Tab, 1 TAB PO BID, #45 TAB Prov:HAYDE OGDEN MD 07/17/16 Apixaban* (Eliquis*) 2.5 Mg Tablet, 5 MG PO BID for 30 Days, TAB Prov:YUDY CINTRON 04/03/15 Reported Medications Ferrous Sulfate* (Ferrous Sulfate*) 325 Mg Tabec, 325 MG PO BID, TAB 07/10/16 Fluticasone Propionate (Flonase Allergy Relief) 9.9 Ml [place].susp, 1 SPRAY NASAL BID, #1 BOTTLE TO EACH NOSTRIL 07/10/16 Terbinafine Hcl* (Terbinafine Hcl*) 250 Mg Tablet, 250 MG PO DAILY, TAB 07/10/16 Calcium Citrate/Vitamin D (Citracal-Vitamin D 200 MG-250) 1 Each Tablet, 1 EACH PO BID, TAB 07/10/16 Olanzapine* (Zyprexa*) 10 Mg Tablet, 20 MG PO DAILY, #30 TAB 07/10/16 Lisinopril* (Lisinopril*) 20 Mg Tablet, 20 MG PO DAILY, #30 TAB 07/10/16 Multivitamins* (Once Daily*) 1 Tab Tablet, 1 TAB PO DAILY, TAB 01/31/15 Pantoprazole* (Protonix*) 40 Mg Tablet.dr, 40 MG PO DAILY 03/19/13 Emtricitabine-Tenofovir* (Truvada*) 1 Tab Tab, 1 TAB PO DAILY 03/19/13 Raltegravir Potassium* (Isentress*) 400 Mg Tablet, 400 MG PO BID 03/19/13 Allergies Allergies: Coded Allergies: No Known Allergy (Unverified , 05/30/17) PMhx/Soc History of Surgery: Yes (BACK SX 2008, 02/2015, ) Anesthesia Reaction: No Hx Neurological Disorder: No Hx Respiratory Disorders: No Hx Cardiac Disorders: Yes (HTN) Hx Psychiatric Problems: Yes (DEPRESSION) Hx Miscellaneous Medical Probl: Yes (HEP C, HIB) Hx Alcohol Use: Yes (SOCIALLY) Hx Substance Use: No Hx Tobacco Use: Yes (1PK A DAY X 40YRS) FmHx Family History: No diabetes, No coronary disease Physical Exam Vitals Vital Signs Date Temp Pulse Resp B/P (MAP) Pulse Ox O2 O2 Flow FiO2 Time Delivery Rate 07/15/18 97.0 132 20 123/77 97 11:46 (92) Physical Exam Const: [id number]-[id number], well-nourished. In no acute distress. Head: Atraumatic, normocephalic Eyes: Normal Conjunctiva without injection ENT: Normal external ear, nose and mouth. Neck: Full range of motion. No meningismus. Resp: Clear to auscultation bilaterally. No wheezing, rhonchi, rales, or crackles. No accessory muscle use. No retractions. Cardio: Regular rate and rhythm, no murmurs Skin: No petechiae or rashes. Erythematous, warm skin surrounding the laceration site with 8 sutures noted on the right dorsal upper arm. Back: No midline tenderness. No CVA tenderness. Ext: No cyanosis, or edema. Cap refill less than 2 seconds. Distal pulses intact bilaterally. Neur: Awake and alert. Normal gait and coordination. Muscle strength 5/5. Sensation intact bilaterally. Psych: Normal Mood and Affect Results 24 hrs Current Medications Medications Dose Sig/Tanner Start Time Status Last (Trade) Ordered Route PRN Stop Time Admin Dose Reason Admin 1 tab ONCE ONCE 07/15/18 DC 07/15/18 Acetaminophen PO 13:00 12:53 / 07/15/18 13:01 Hydrocodone Bitart (Temple (5/325)) Procedures/MDM 52-year-old male patient with a past medical history of HIV, hypertension presents to the ED complaining of right arm redness. Patient is afebrile and nontoxic-appearing. 2 sutures removed out of the ED at this time. 6 sutures left over. I think patient could benefit from an additional 2-3 days for suture removal. Patient's bleeding was easily controlled in the department and there is no indication of anemia. Patient is neurovascularly intact. No evidence of compartment syndrome, neurologic injury, vascular injury, open joint, tendon laceration, or foreign body. Patient is appropriate for outpatient follow up. 48 hour wound check. Scar minimization instructions given. Instructed patient to return for suture removal in 2-3 days. Keflex was prescribed to patient for infection prevention. Follow up with primary care physician in 1-2 days. Instructed patient to return to the ED sooner for any worsening symptoms. Patient's questions were answered. Patient is hemodynamically stable. Patient understood and agreed with discharge plan. Patient discharged stable. Disclaimer: Inadvertent spelling and grammatical errors are likely due to EHR/dictation software use and do not reflect on the overall quality of patient care. Also, please note that the electronic time recorded on this note does not necessarily reflect the actual time of the patient encounter. Departure Diagnosis: Primary Impression: Suture check Condition: Stable Patient Instructions: Suture Care Referrals: [facility] YOU HAVE RECEIVED A MEDICAL SCREENING EXAM AND THE RESULTS INDICATE THAT YOU DO NOT HAVE A CONDITION THAT REQUIRES URGENT TREATMENT IN THE EMERGENCY DEPARTMENT. FURTHER EVALUATION AND TREATMENT OF YOUR CONDITION CAN WAIT UNTIL YOU ARE SEEN IN YOUR DOCTORS OFFICE WITHIN THE NEXT 1-2 DAYS. IT IS YOUR RESPONSIBILITY TO MAKE AN APPOINTMENT FOR FOLOW-UP CARE. IF YOU HAVE A PRIMARY DOCTOR --you should call your primary doctor and schedule an appointment IF YOU DO NOT HAVE A PRIMARY DOCTOR YOU CAN CALL OUR PHYSICIAN REFERRAL HOTLINE AT IF YOU CAN NOT AFFORD TO SEE A PHYSICIAN YOU CAN CHOSE FROM THE FOLLOWING [facility] [address] [facility]. [facility] [address] [facility] [facility] [address] [facility] [address] [facility] [address] [facility] [facility]. [facility] [address] [facility]. [facility] YOU HAVE RECEIVED A MEDICAL SCREENING EXAM AND THE RESULTS INDICATE THAT YOU DO NOT HAVE A CONDITION THAT REQUIRES URGENT TREATMENT IN THE EMERGENCY DEPARTMENT. FURTHER EVALUATION AND TREATMENT OF YOUR CONDITION CAN WAIT UNTIL YOU ARE SEEN IN YOUR DOCTORS OFFICE WITHIN THE NEXT 1-2 DAYS. IT IS YOUR RESPONSIBILITY TO MAKE AN APPOINTMENT FOR FOLOW-UP CARE. IF YOU HAVE A PRIMARY DOCTOR --you should call your primary doctor and schedule and appointment IF YOU DO NOT HAVE A PRIMARY DOCTOR YOU CAN CALL OUR PHYSICIAN REFERRAL HOTLINE AT . IF YOU CAN NOT AFFORD TO SEE A PHYSICIAN YOU CAN CHOSE FROM THE FOLLOWING [facility]: [facility] [address] [place] [address] [facility] [address] [place] [address] [facility] [address] [place] [address] [facility] URGENT C[facility]/SPECIALTIES Additional Instructions: Call your primary care doctor TOMORROW for an appointment during the next 2-3 days.See the doctor sooner or return here if your condition worsens before your appointment time - fever, increased swelling/redness/pus despite starting antibiotics. Follow up in 2-3 days in your clinic for wound check and suture removal. JAX CONNORS PA-C Jul 15, 2018 12:56
[2018-07-15] MEDS ORDERED: HYDROCODONE/APAP (5/325) TAB PO ONE (13:00)
== END 2018-07-15 13:29 | disposition home or self-care (01) ==
LOC: FTE 11:29
DX: Z48.02 Encounter for removal of sutures (principal); I10 Essential (primary) hypertension; Z21 Asymptomatic human immunodeficiency virus [HIV] infection status
CPT/HCPCS: Z7502; Z7610; 99283

== ENCOUNTER 2018-07-21 08:33 | Emergency (ER) | payer OTHER ==
[~2018-07-21] VITALS: Ht 176.5 cm; Wt 108.0 kg
[~2018-07-21 08:33] MED LIST changes: +CEPH-443 PO
[2018-07-21 08:39] VITALS: BP 128/83; PULSE 108; RESP 20; Ht 176.5 cm; Wt 108.0 kg
[2018-07-21] MEDS ORDERED: ACET1TAB40 PO (09:20)
--- NOTE | 2018-07-21 09:22 | ERD ---
ER Documentation Chief Complaint Chief Complaint suture removal on right upper arm HPI 52-year-old male to female presents for evaluation for suture removal in a right upper arm sustained 2 weeks ago. She was here a week ago and was told it may be infected and had a partial suture removal. She was prescribed antibiotics but did not filler picker the antibiotics. She denies fevers, bleeding or discharge, restricted range of motion or weakness. ROS All systems reviewed and are negative except as per history of present illness. Medications Home Meds Active Scripts Acetaminophen with Codeine (Acetaminophen-Cod #3 Tablet) 1 Each Tablet, 1 TAB PO Q6H PRN for PAIN, #7 TAB Prov:AUSTIN PRECIADO MD 07/21/18 Cephalexin* (Keflex*) 500 Mg Capsule, 500 MG PO QID for 7 Days, CAP Prov:JAX CONNORS PA-C 07/15/18 Hydrocodone/Acetaminophen ([place] 5-325 Tablet) 1 Each Tablet, 1 TAB PO Q6H PRN for PAIN, #7 TAB Prov:AUSTIN PRECIADO MD 07/09/18 Ondansetron (Ondansetron Odt) 8 Mg Tab.rapdis, 8 MG PO Q6H PRN for NAUSEA AND/OR VOMITING, #10 TAB Prov:AUSTIN PRECIADO MD 05/30/17 Hydrocodone/Acetaminophen ([place] 5-325 Tablet) 1 Each Tablet, 1 TAB PO Q6H PRN for PAIN, #10 TAB Prov:AUSTIN PRECIADO MD 05/30/17 Cyclobenzaprine Hcl* (Cyclobenzaprine Hcl*) 10 Mg Tablet, 10 MG PO Q12, #15 TAB Prov:IQRA ANDINO 12/22/16 Albuterol/Ipratropium* (Combivent Respimat*) 20-100 Mcg/Inh - 4 Gm Aer.w.adap, 1 PUFF INHALATION QID, #1 INHALER Prov:HAYDE OGDEN MD 07/17/16 Methylprednisolone* (Medrol* DOSE PACK) 4 Mg/Dose-Pack Tab.ds.pk, 4 MG PO . DIRECTED for 7 Days, PACKET Prov:HAYDE OGDEN MD 07/17/16 Levofloxacin* (Levofloxacin*) 500 Mg Tablet, 500 MG PO DAILY, #7 TAB Prov:HAYDE OGDEN MD 07/17/16 Sulfamethoxazole-Trimethoprim* (Bactrim* DS) 800-160 Mg Tab, 1 TAB PO BID, #45 TAB Prov:HAYDE OGDEN MD 07/17/16 Apixaban* (Eliquis*) 2.5 Mg Tablet, 5 MG PO BID for 30 Days, TAB Prov:YUDY CINTRON 04/03/15 Reported Medications Ferrous Sulfate* (Ferrous Sulfate*) 325 Mg Tabec, 325 MG PO BID, TAB 07/10/16 Fluticasone Propionate (Flonase Allergy Relief) 9.9 Ml [place].susp, 1 SPRAY NASAL BID, #1 BOTTLE TO EACH NOSTRIL 07/10/16 Terbinafine Hcl* (Terbinafine Hcl*) 250 Mg Tablet, 250 MG PO DAILY, TAB 07/10/16 Calcium Citrate/Vitamin D (Citracal-Vitamin D 200 MG-250) 1 Each Tablet, 1 EACH PO BID, TAB 07/10/16 Olanzapine* (Zyprexa*) 10 Mg Tablet, 20 MG PO DAILY, #30 TAB 07/10/16 Lisinopril* (Lisinopril*) 20 Mg Tablet, 20 MG PO DAILY, #30 TAB 07/10/16 Multivitamins* (Once Daily*) 1 Tab Tablet, 1 TAB PO DAILY, TAB 01/31/15 Pantoprazole* (Protonix*) 40 Mg Tablet.dr, 40 MG PO DAILY 03/19/13 Emtricitabine-Tenofovir* (Truvada*) 1 Tab Tab, 1 TAB PO DAILY 03/19/13 Raltegravir Potassium* (Isentress*) 400 Mg Tablet, 400 MG PO BID 03/19/13 Allergies Allergies: Coded Allergies: No Known Allergy (Unverified , 05/30/17) PMhx/Soc History of Surgery: Yes (BACK SX 2008, 02/2015, ) Anesthesia Reaction: No Hx Neurological Disorder: No Hx Respiratory Disorders: No Hx Cardiac Disorders: Yes (HTN) Hx Psychiatric Problems: Yes (DEPRESSION) Hx Miscellaneous Medical Probl: Yes (HEP C, HIB) Hx Alcohol Use: Yes (SOCIALLY) Hx Substance Use: No Hx Tobacco Use: Yes (1PK A DAY X 40YRS) Smoking Status: Current every day smoker FmHx Family History: No diabetes, No coronary disease, No other Physical Exam Vitals Vital Signs Date Temp Pulse Resp B/P (MAP) Pulse Ox O2 O2 Flow FiO2 Time Delivery Rate 07/21/18 97.5 108 20 128/83 100 08:39 (98) Physical Exam Const: No acute distress Head: Atraumatic Eyes: Normal Conjunctiva ENT: Normal External Ears, Nose and Mouth. Neck: Full range of motion. No meningismus. Resp: Clear to auscultation bilaterally Cardio: Regular rate and rhythm, no murmurs Abd: Soft, non tender, non distended. Normal bowel sounds Skin: No petechiae or rashes Back: No midline or flank tenderness Ext: No cyanosis, or edema. Healing laceration on the right triceps area without bleeding, discharge, redness, warmth, restricted range of motion or deficits. Neur: Awake and alert Psych: Normal Mood and Affect Procedures/MDM Sutures removed without complications. Patient presents with a satisfactory healing laceration on the right triceps area without signs of infection, deficits, ischemia, additional complications. She will be discharged home with recommendations for return for fevers, redness, bleeding, discharge, new worsening symptoms. Departure Diagnosis: Primary Impression: Visit for suture removal Additional Impression: Encounter for wound re-check Condition: Stable Patient Instructions: Suture Removal, No Complication Additional Instructions: Recheck for redness, fevers, bleeding or discharge. AUSTIN PRECIADO MD Jul 21, 2018 09:22
== END 2018-07-21 09:39 | disposition home or self-care (01) ==
LOC: FTE 08:33
DX: Z48.02 Encounter for removal of sutures (principal); I10 Essential (primary) hypertension; F17.210 Nicotine dependence, cigarettes, uncomplicated
CPT/HCPCS: 99281

== ENCOUNTER 2018-08-14 20:57 | Emergency (ER) | payer OTHER ==
[~2018-08-14] VITALS: Ht 175.3 cm; Wt 113.6 kg
[~2018-08-14 20:57] MED LIST changes: +ACET1TAB40 PO
[2018-08-14 21:00] VITALS: Ht 175.3 cm; Wt 113.6 kg
[2018-08-14] MEDS ORDERED: KETOROLAC 30 MG INJ IM STA (21:14)
[2018-08-14] MEDS ORDERED: IBUP-1542 PO (22:33)
--- NOTE | 2018-08-14 22:44 | ERD ---
ER Documentation Chief Complaint Chief Complaint Back pain/R Rib pain after climbing/falling over 5 foot gate. No KO HPI Patient is a 52-year-old male with HIV who presents with a fall. Patient was brought in by ambulance. The patient fell while climbing over a gate. The patient hit the right ribs and lower back. He tried gabapentin at home. The fall was at 12 PM. He denies head injury. Upon review of old medical records the patient has multiple visits to the ER for various complaints. He does have a primary doctor. ROS All systems reviewed and are negative except as per history of present illness. Medications Home Meds Active Scripts Ibuprofen* (Motrin*) 600 Mg Tab, 600 MG PO Q6H PRN for PAIN AND OR ELEVATED TEMP, #30 TAB Prov:NIGEL HILL MD 08/14/18 Acetaminophen with Codeine (Acetaminophen-Cod #3 Tablet) 1 Each Tablet, 1 TAB PO Q6H PRN for PAIN, #7 TAB Prov:AUSTIN PRECIADO MD 07/21/18 Cephalexin* (Keflex*) 500 Mg Capsule, 500 MG PO QID for 7 Days, CAP Prov:JAX CONNORS PA-C 07/15/18 Hydrocodone/Acetaminophen ([place] 5-325 Tablet) 1 Each Tablet, 1 TAB PO Q6H PRN f or PAIN, #7 TAB Prov:AUSTIN PRECIADO MD 07/09/18 Ondansetron (Ondansetron Odt) 8 Mg Tab.rapdis, 8 MG PO Q6H PRN for NAUSEA AND/OR VOMITING, #10 TAB Prov:AUSTIN PRECIADO MD 05/30/17 Hydrocodone/Acetaminophen ([place] 5-325 Tablet) 1 Each Tablet, 1 TAB PO Q6H PRN for PAIN, #10 TAB Prov:AUSTIN PRECIADO MD 05/30/17 Cyclobenzaprine Hcl* (Cyclobenzaprine Hcl*) 10 Mg Tablet, 10 MG PO Q12, #15 TAB Prov:IQRA ANDINO 12/22/16 Albuterol/Ipratropium* (Combivent Respimat*) 20-100 Mcg/Inh - 4 Gm Aer.w.adap, 1 PUFF INHALATION QID, #1 INHALER Prov:HAYDE OGDEN MD 07/17/16 Methylprednisolone* (Medrol* DOSE PACK) 4 Mg/Dose-Pack Tab.ds.pk, 4 MG PO . DIRECTED for 7 Days, PACKET Prov:HAYDE OGDEN MD 07/17/16 Levofloxacin* (Levofloxacin*) 500 Mg Tablet, 500 MG PO DAILY, #7 TAB Prov:HAYDE OGDEN MD 07/17/16 Sulfamethoxazole-Trimethoprim* (Bactrim* DS) 800-160 Mg Tab, 1 TAB PO BID, #45 TAB Prov:HAYDE OGDEN MD 07/17/16 Apixaban* (Eliquis*) 2.5 Mg Tablet, 5 MG PO BID for 30 Days, TAB Prov:YUDY CINTRON 04/03/15 Reported Medications Ferrous Sulfate* (Ferrous Sulfate*) 325 Mg Tabec, 325 MG PO BID, TAB 07/10/16 Fluticasone Propionate (Flonase Allergy Relief) 9.9 Ml [place].susp, 1 SPRAY NASAL BID, #1 BOTTLE TO EACH NOSTRIL 07/10/16 Terbinafine Hcl* (Terbinafine Hcl*) 250 Mg Tablet, 250 MG PO DAILY, TAB 07/10/16 Calcium Citrate/Vitamin D (Citracal-Vitamin D 200 MG-250) 1 Each Tablet, 1 EACH PO BID, TAB 07/10/16 Olanzapine* (Zyprexa*) 10 Mg Tablet, 20 MG PO DAILY, #30 TAB 07/10/16 Lisinopril* (Lisinopril*) 20 Mg Tablet, 20 MG PO DAILY, #30 TAB 07/10/16 Multivitamins* (Once Daily*) 1 Tab Tablet, 1 TAB PO DAILY, TAB 01/31/15 Pantoprazole* (Protonix*) 40 Mg Tablet.dr, 40 MG PO DAILY 03/19/13 Emtricitabine-Tenofovir* (Truvada*) 1 Tab Tab, 1 TAB PO DAILY 03/19/13 Raltegravir Potassium* (Isentress*) 400 Mg Tablet, 400 MG PO BID 03/19/13 Allergies Allergies: Coded Allergies: No Known Allergy (Unverified , 05/30/17) PMhx/Soc History of Surgery: Yes (BACK SX 2008, 02/2015, ) Anesthesia Reaction: No Hx Neurological Disorder: No Hx Respiratory Disorders: No Hx Cardiac Disorders: Yes (HTN) Hx Psychiatric Problems: Yes (DEPRESSION) Hx Miscellaneous Medical Probl: Yes (HEP C, HIV) Hx Alcohol Use: Yes (SOCIALLY) Hx Substance Use: No Hx Tobacco Use: Yes (1PK A DAY X 40YRS) Smoking Status: Current every day smoker FmHx Family History: No diabetes Physical Exam Vitals Vital Signs Date Temp Pulse Resp B/P (MAP) Pulse Ox O2 O2 Flow FiO2 Time Delivery Rate 08/14/18 98.1 97 18 101/72 100 Room Air 21:14 (82) 08/14/18 98.1 98 18 101/72 100 21:00 (82) Physical Exam Const: Moderate distress secondary to pain Head: Atraumatic Eyes: Normal Conjunctiva ENT: Normal External Ears, Nose and Mouth. Neck: Full range of motion. No meningismus. Resp: Clear to auscultation bilaterally Cardio: Regular rate and rhythm, no murmurs or right-sided chest wall pain with palpation Abd: Soft, non tender, non distended. Normal bowel sounds Skin: No petechiae or rashes Back: Right flank pain with palpation but no midline tenderness to palpation or step-off Ext: No cyanosis, or edema Neur: Awake and alert Psych: Normal Mood and Affect Results 24 hrs Current Medications Medications Dose Sig/Tanner Start Time Status Last (Trade) Ordered Route PRN Stop Time Admin Dose Reason Admin Ketorolac 30 mg ONCE STAT 08/14/18 DC 08/14/18 Tromethamine IM 21:14 21:30 (Toradol) 08/14/18 21:15 Procedures/MDM X-ray of the right ribs shows no fracture per radiology. X-ray of the chest shows no abnormality per radiology. X-ray of the lumbar spine shows no acute fracture per radiology. Smoking Cessation Therapy: Pt. was lectured for greater than 3 minutes on the health risks of continued smoking and the benefits of cessation. Patient is a 52-year-old male who presents with a fall. X-rays were negative. At this point I doubt serious traumatic injury. I believe outpatient management is appropriate and the patient will be given a prescription for ibuprofen. Toradol was given in the emergency department with good relief. The patient should follow-up with primary doctor within 1 week and can return if symptoms worsen. Departure Diagnosis: Primary Impression: Fall Encounter type: initial encounter Qualified Codes: W19.XXXA - Unspecified fall, initial encounter Condition: Fair Patient Instructions: Contusion, Back, Fall Prevention Referrals: Your doctor Additional Instructions: Call your primary care doctor TOMORROW for an appointment during the next 1 WEEK.Tell the psychiatry physician that you were referred from this facility.See the doctor sooner or return here if your condition worsens before your appointment time. NIGEL HILL MD Aug 14, 2018 22:44
[2018-08-14 22:49] VITALS: BP 110/75; PULSE 94; RESP 18
== END 2018-08-14 22:55 | disposition home or self-care (01) ==
LOC: E/R 20:57
DX: R07.81 Pleurodynia (principal); I10 Essential (primary) hypertension; F17.210 Nicotine dependence, cigarettes, uncomplicated
CPT/HCPCS: 71045; 71100; 72100; J1885; 96372

== ENCOUNTER 2018-08-18 09:20 | Emergency (ER) | payer OTHER ==
[~2018-08-18] VITALS: Ht 177.8 cm; Wt 85.0 kg
[~2018-08-18 09:20] MED LIST changes: +IBUP-1542 PO
[2018-08-18 09:26] VITALS: BP 137/89; PULSE 122; RESP 20; Ht 177.8 cm; Wt 85.0 kg
[2018-08-18] MEDS ORDERED: KETOROLAC 30 MG INJ IV STA (09:43)
[2018-08-18] MEDS ORDERED: KETOROLAC 30 MG INJ IM STA (09:48)
[2018-08-18] MEDS ORDERED: HYDROCODONE/APAP (7.5/325) TAB PO ONE (10:00)
[2018-08-18] MEDS ORDERED: TRAM50TA2 PO (11:12)
[2018-08-18] MEDS ORDERED: NAPR-985 PO (11:12)
--- NOTE | 2018-08-18 11:21 | ERD ---
ER Documentation Chief Complaint Chief Complaint Complains of back pain after a fall today HPI 52-year-old trans-female presents for evaluation of back pain x1 day. Patient notes to have fallen off a basket attempting to climb a fence when fell onto her back and right side. Patient complaining of right-sided rib pain and back pain, expresses concern due to previous spinal fusion and chronic back pain. Patient rates their pain as 8/10 localized to the ribs and low back, and denies radiation. Patient denies bowel or bladder incontinence, loss of motor function, or saddle anesthesia. Patient denies head trauma or loss of consciousness. Patient is ambulatory but notes mild pain with movement. ROS All systems reviewed and are negative except as per history of present illness. Medications Home Meds Active Scripts Naproxen* (Naprosyn*) 500 Mg Tablet, 500 MG PO BID PRN for PAIN AND/OR INFLAMM ATION, #30 TAB Prov:YISEL LAO PA-C 08/18/18 Tramadol HCl (Tramadol HCl) 50 Mg Tablet, 50 MG PO Q6, #12 TAB Prov:YISEL LAO PA-C 08/18/18 Ibuprofen* (Motrin*) 600 Mg Tab, 600 MG PO Q6H PRN for PAIN AND OR ELEVATED TEMP, #30 TAB Prov:NIGEL HILL MD 08/14/18 Acetaminophen with Codeine (Acetaminophen-Cod #3 Tablet) 1 Each Tablet, 1 TAB PO Q6H PRN for PAIN, #7 TAB Prov:AUSTIN PRECIADO MD 07/21/18 Cephalexin* (Keflex*) 500 Mg Capsule, 500 MG PO QID for 7 Days, CAP Prov:JAX CONNORS PA-C 07/15/18 Hydrocodone/Acetaminophen (Becket 5-325 Tablet) 1 Each Tablet, 1 TAB PO Q6H PRN for PAIN, #7 TAB Prov:AUSTIN PRECIADO MD 07/09/18 Ondansetron (Ondansetron Odt) 8 Mg Tab.rapdis, 8 MG PO Q6H PRN for NAUSEA AND/OR VOMITING, #10 TAB Prov:AUSTIN PRECIADO MD 05/30/17 Hydrocodone/Acetaminophen (Becket 5-325 Tablet) 1 Each Tablet, 1 TAB PO Q6H PRN for PAIN, #10 TAB Prov:AUSTIN PRECIADO MD 05/30/17 Cyclobenzaprine Hcl* (Cyclobenzaprine Hcl*) 10 Mg Tablet, 10 MG PO Q12, #15 TAB Prov:IQRA ANDINO 12/22/16 Albuterol/Ipratropium* (Combivent Respimat*) 20-100 Mcg/Inh - 4 Gm Aer.w.adap, 1 PUFF INHALATION QID, #1 INHALER Prov:HAYDE OGDEN MD 07/17/16 Methylprednisolone* (Medrol* DOSE PACK) 4 Mg/Dose-Pack Tab.ds.pk, 4 MG PO . DIRECTED for 7 Days, PACKET Prov:HAYDE OGDEN MD 07/17/16 Levofloxacin* (Levofloxacin*) 500 Mg Tablet, 500 MG PO DAILY, #7 TAB Prov:HAYDE OGDEN MD 07/17/16 Sulfamethoxazole-Trimethoprim* (Bactrim* DS) 800-160 Mg Tab, 1 TAB PO BID, #45 TAB Prov:HAYDE OGDEN MD 07/17/16 Apixaban* (Eliquis*) 2.5 Mg Tablet, 5 MG PO BID for 30 Days, TAB Prov:YUDY CINTRON 04/03/15 Reported Medications Ferrous Sulfate* (Ferrous Sulfate*) 325 Mg Tabec, 325 MG PO BID, TAB 07/10/16 Fluticasone Propionate (Flonase Allergy Relief) 9.9 Ml [place].susp, 1 SPRAY NASAL BID, #1 BOTTLE TO EACH NOSTRIL 07/10/16 Terbinafine Hcl* (Terbinafine Hcl*) 250 Mg Tablet, 250 MG PO DAILY, TAB 07/10/16 Calcium Citrate/Vitamin D (Citracal-Vitamin D 200 MG-250) 1 Each Tablet, 1 EACH PO BID, TAB 07/10/16 Olanzapine* (Zyprexa*) 10 Mg Tablet, 20 MG PO DAILY, #30 TAB 07/10/16 Lisinopril* (Lisinopril*) 20 Mg Tablet, 20 MG PO DAILY, #30 TAB 07/10/16 Multivitamins* (Once Daily*) 1 Tab Tablet, 1 TAB PO DAILY, TAB 01/31/15 Pantoprazole* (Protonix*) 40 Mg Tablet.dr, 40 MG PO DAILY 03/19/13 Emtricitabine-Tenofovir* (Truvada*) 1 Tab Tab, 1 TAB PO DAILY 03/19/13 Raltegravir Potassium* (Isentress*) 400 Mg Tablet, 400 MG PO BID 03/19/13 Allergies Allergies: Coded Allergies: No Known Allergy (Unverified , 08/18/18) PMhx/Soc History of Surgery: Yes (BACK SX 2008, 02/2015, ) Anesthesia Reaction: No Hx Neurological Disorder: No Hx Respiratory Disorders: No Hx Cardiac Disorders: Yes (HTN) Hx Psychiatric Problems: Yes (DEPRESSION) Hx Miscellaneous Medical Probl: Yes (HEP C, HIV) Hx Alcohol Use: Yes (SOCIALLY) Hx Substance Use: No Hx Tobacco Use: Yes (1PK A DAY X 40YRS) Smoking Status: Current every day smoker FmHx Family History: diabetes; No coronary disease, No other Physical Exam Vitals Physical Exam Const: alert, no acute distress and cooperative, A&Ox3 Head: Normocephalic, atraumatic, PERRL, conjunctiva normal Eyes: Normal Conjunctiva ENT: Normal External Ears, Nose and Mouth. Neck: Full range of motion. No meningismus. Resp: Clear to auscultation bilaterally Cardio: Regular rate and rhythm, no murmurs Abd: Soft, non tender, non distended. Normal bowel sounds. No visible abrasions or ecchymosis. Skin: No petechiae or rashes Back: No midline or flank tenderness. Visual inspection reveals surgical scar over thoracic and lumbar spine in entirety. No CVA tenderness. Mild tenderness to palpation along L3-L5. Negative straight leg raise bilaterally. Full range of motion patient able to move from a supine to seated without pain. Normal dorsiflexion BLE, NVI distally Upper ext: Inspection normal, Normal range of motion to all major joints Lower ext: Inspection normal, Normal range of motion to all major joints Neur: Alert and oriented x3. Appropriate speech, mood and affect. Face is symmetric. Speech is normal. CN II-XII intact. Moves all extremities equally. Ambulates with a strong, steady gait. Psych: calm, no SI/HI, no hallucinations Results 24 hrs Current Medications Medications Dose Sig/Tanner Start Time Status Last (Trade) Ordered Route PRN Stop Time Admin Dose Reason Admin 1 tab ONCE ONCE 08/18/18 DC 08/18/18 Acetaminophen PO 10:00 08/18/18 10:02 / 10:01 Hydrocodone Bitart (Becket (7.5-325)) Ketorolac 30 mg ONCE STAT 08/18/18 DC Tromethamine IV 09:43 08/18/18 (Toradol) 09:49 Ketorolac 30 mg ONCE STAT 08/18/18 DC 08/18/18 Tromethamine IM 09:48 08/18/18 09:54 (Toradol) 09:50 Procedures/MDM PROCEDURE: Right rib series FINDINGS: No evidence for acute rib fractures are present. The right hemithorax is clear. Mild dextroscoliosis is noted. The soft tissues are normal. No radiodense foreign bodies are present. IMPRESSION: 1. No acute fractures or dislocations are present. PROCEDURE: Lumbar spine series COMPARISON: Lumbar spine series 08/14/2018 FINDINGS: The patient is status post right pedicular L5-S1 fusion with interbody disc spacer present. This is for correction of a a grade II spondylolisthesis anteriorly of L5-S1. Mild degenerative enthesopathy of the lumbar spine Laminectomy changes are present at L5-S1. Preservation of remainder of the vertebral body heights are noted. Facet osteoarthropathy is noted at the L5-S1 f acet joints. These findings are unchanged from prior study. IMPRESSION: 1. Status post right L5-S1 fusion with interbody disc spacer for a grade II spondylolisthesis of L5 on S1 unchanged from prior study. 2. Mild facet arthropathy at L5-S1 3. Mild degenerative enthesopathy of the lumbar spine MDM: This is a very pleasant 52yo trans-female who presents with complaint of acute back and rib pain s/p injury. Physical exam positive for TTP in lumbar spine, however, pt NVI, ambulatory, and with no alarm symptoms. XR imaging of the Right ribs and Lumbar spine negative for acute abnormality with no changes in most recent imaging taking approximately 1 week ago. Pt was given Becket 7.5mg PO for pain and Toradol 30mg IM for inflammation. Pt noted improvement in symptoms upon re-evaluation. Pt counseled regarding findings and advised to f/u with PCP and/or pain management for management of chronic pain. Given improvement of symptoms while in ED with use of Becket and Toradol pt given short course Tramadol for pain and Naproxen for inflammation. Pt CURES report negative for recent narcotic prescription and not considered at risk for overdose at this time. Pt counseled to use to shortest course of Tramadol for pain, and to continue with Naproxen as needed for pain. Pt happy with treatment plan and expressed verbal understanding. Pt stable for discharge with out patient follow- up. Strict ED return precautions discussed. Departure Diagnosis: Primary Impression: Back injury Additional Impressions: Chronic back pain Back pain location: low back pain Back pain laterality: midline Sciatica presence: unspecified whether sciatica present Qualified Codes: M54.5 - Low back pain; G89.29 - Other chronic pain Rib pain Condition: Stable Patient Instructions: Back Pain (Acute Or Chronic), Rib Contusion YISEL LAO PA-C August 18, 2018 11:21
== END 2018-08-18 11:22 | disposition home or self-care (01) ==
LOC: FTE 09:20
DX: S39.92XA Unspecified injury of lower back, initial encounter (principal); S29.9XXA Unspecified injury of thorax, initial encounter; W18.30XA Fall on same level, unspecified, initial encounter; Y92.310 Basketball court as the place of occurrence of the external cause
CPT/HCPCS: 71100; 72100; 96372; J1885; Z7502; Z7610

== ENCOUNTER 2018-08-27 15:04 | Inpatient (IN) | payer OTHER ==
[~2018-08-27] VITALS: Ht 176.5 cm; Wt 110.5 kg
[~2018-08-27 15:04] MED LIST changes: +NAPR-985 PO; +TRAM50TA2 PO
[2018-08-27] MEDS ORDERED: SOD CHLORIDE 0.9% 500 ML IV STA (15:21)
[2018-08-27] MEDS ORDERED: LISI1TAB8 PO (16:42)
[2018-08-27] MEDS ORDERED: ACYC800T PO (16:43)
[2018-08-27] MEDS ORDERED: IBUP-1545 PO (16:43)
[2018-08-27] MEDS ORDERED: GABA-528 PO (16:44)
[2018-08-27] MEDS ORDERED: PANT40TA4 PO (16:44)
[2018-08-27] MEDS ORDERED: APIX2.5T PO (16:45)
[2018-08-27] MEDS ORDERED: CALC1TAB93 PO (16:45)
[2018-08-27] MEDS ORDERED: AMIT100T2 PO (16:46)
[2018-08-27] MEDS ORDERED: AMIT50TA3 PO (16:46)
--- NOTE | 2018-08-27 18:22 | ERD ---
ER Documentation Chief Complaint Chief Complaint dizziness, sob started this morning HPI This is a 52-year-old transgender female with a past medical history of hypertension, GERD, chronic pain, psychiatric illness, HIV compliant on her medications, now presenting with a near syncopal event this morning. The patient felt lightheaded last night, but it seemed to improve. This morning, the patient had a subsequent episode of lightheadedness and she does report falling to the floor. She did not hit her head. There is no trauma or injury. However, she wanted to be assessed to make sure that everything was okay. Currently, she has no complaints. The patient denies feeling sick recently. The patient denies fever or chills. The patient has had no headache or vision changes. The patient does not endorse neck or back pain. The patient has had no chest pain or trouble breathing. The patient denies nausea or vomiting. The patient denies abdominal pain. The patient denies changes to bowel movements or urination. The patient has had no focal deficits. The patient has had no weakness or numbness or tingling to the face or extremities. ROS All systems reviewed and are negative except as per history of present illness. Medications Home Meds Reported Medications Amitriptyline Hcl* (Amitriptyline Hcl*) 100 Mg Tablet, 100 MG PO QHS, #30 TAB 08/27/18 Amitriptyline Hcl* (Amitriptyline Hcl*) 50 Mg Tablet, 50 MG PO QHS, #30 TAB 08/27/18 Apixaban* (Eliquis*) 2.5 Mg Tablet, 2.5 MG PO BID, TAB 08/27/18 Calcium Carbonate/Vitamin D3 (OYSTER SHELL 500 MG + VIT D TB) 1 Each Tablet, 1 EACH PO BID, TAB 08/27/18 Gabapentin* (Gabapentin*) 800 Mg Tablet, 800 MG PO QID, #90 TAB 08/27/18 Pantoprazole* (Pantoprazole*) 40 Mg Tablet.dr, 40 MG PO AC BREAKFAST, TAB 08/27/18 Ibuprofen* (Ibuprofen*) 800 Mg Tab, 800 MG PO BID PRN for PAIN, TAB 08/27/18 Acyclovir* (Acyclovir*) 800 Mg Tablet, 800 MG PO DAILY, TAB 08/27/18 Lisinopril/Hydrochlorothiazide (Lisinopril-Hctz 20-25 mg Tab) 1 Each Tablet, 1 EACH PO DAILY, TAB 08/27/18 Discontinued Reported Medications Ferrous Sulfate* (Ferrous Sulfate*) 325 Mg Tabec, 325 MG PO BID, TAB 07/10/16 Fluticasone Propionate (Flonase Allergy Relief) 9.9 Ml [place].susp, 1 SPRAY NASAL BID, #1 BOTTLE TO EACH NOSTRIL 07/10/16 Terbinafine Hcl* (Terbinafine Hcl*) 250 Mg Tablet, 250 MG PO DAILY, TAB 07/10/16 Calcium Citrate/Vitamin D (Citracal-Vitamin D 200 MG-250) 1 Each Tablet, 1 EACH PO BID, TAB 07/10/16 Olanzapine* (Zyprexa*) 10 Mg Tablet, 20 MG PO DAILY, #30 TAB 07/10/16 Lisinopril* (Lisinopril*) 20 Mg Tablet, 20 MG PO DAILY, #30 TAB 07/10/16 Multivitamins* (Once Daily*) 1 Tab Tablet, 1 TAB PO DAILY, TAB 01/31/15 Pantoprazole* (Protonix*) 40 Mg Tablet.dr, 40 MG PO DAILY 03/19/13 Emtricitabine-Tenofovir* (Truvada*) 1 Tab Tab, 1 TAB PO DAILY 03/19/13 Raltegravir Potassium* (Isentress*) 400 Mg Tablet, 400 MG PO BID 03/19/13 Discontinued Scripts Naproxen* (Naprosyn*) 500 Mg Tablet, 500 MG PO BID PRN for PAIN AND/OR INFLAMMATION, #30 TAB Prov:YISEL LAO PA-C 08/18/18 Tramadol HCl (Tramadol HCl) 50 Mg Tablet, 50 MG PO Q6, #12 TAB Prov:YISEL LAO PA-C 08/18/18 Ibuprofen* (Motrin*) 600 Mg Tab, 600 MG PO Q6H PRN for PAIN AND OR ELEVATED TEMP, #30 TAB Prov:NIGEL HILL MD 08/14/18 Acetaminophen with Codeine (Acetaminophen-Cod #3 Tablet) 1 Each Tablet, 1 TAB PO Q6H PRN for PAIN, #7 TAB Prov:AUSTIN PRECIADO MD 07/21/18 Cephalexin* (Keflex*) 500 Mg Capsule, 500 MG PO QID for 7 Days, CAP Prov:JAX CONNORS PA-C 07/15/18 Hydrocodone/Acetaminophen ([place] 5-325 Tablet) 1 Each Tablet, 1 TAB PO Q6H PRN for PAIN, #7 TAB Prov:AUSTIN PRECIADO MD 07/09/18 Ondansetron (Ondansetron Odt) 8 Mg Tab.rapdis, 8 MG PO Q6H PRN for NAUSEA AND/OR VOMITING, #10 TAB Prov:AUSTIN PRECIADO MD 05/30/17 Hydrocodone/Acetaminophen ([place] 5-325 Tablet) 1 Each Tablet, 1 TAB PO Q6H PRN for PAIN, #10 TAB Prov:AUSTIN PRECIADO MD 05/30/17 Cyclobenzaprine Hcl* (Cyclobenzaprine Hcl*) 10 Mg Tablet, 10 MG PO Q12, #15 TAB Prov:IQRA ANDINO 12/22/16 Albuterol/Ipratropium* (Combivent Respimat*) 20-100 Mcg/Inh - 4 Gm Aer.w.adap, 1 PUFF INHALATION QID, #1 INHALER Prov:HAYDE OGDEN MD 07/17/16 Methylprednisolone* (Medrol* DOSE PACK) 4 Mg/Dose-Pack Tab.ds.pk, 4 MG PO . DIRECTED for 7 Days, PACKET Prov:HAYDE OGDEN MD 07/17/16 Levofloxacin* (Levofloxacin*) 500 Mg Tablet, 500 MG PO DAILY, #7 TAB Prov:HAYDE OGDEN MD 07/17/16 Sulfamethoxazole-Trimethoprim* (Bactrim* DS) 800-160 Mg Tab, 1 TAB PO BID, #45 TAB Prov:HAYDE OGDEN MD 07/17/16 Apixaban* (Eliquis*) 2.5 Mg Tablet, 5 MG PO BID for 30 Days, TAB Prov:YUDY CINTRON 04/03/15 Allergies Allergies: Coded Allergies: No Known Allergy (Unverified , 08/27/18) PMhx/Soc History of Surgery: Yes (BACK SX 2008, 02/2015, ) Anesthesia Reaction: No Hx Neurological Disorder: No Hx Respiratory Disorders: No Hx Cardiac Disorders: Yes (HTN) Hx Psychiatric Problems: Yes (DEPRESSION) Hx Miscellaneous Medical Probl: Yes (HEP C, HIV) Hx Alcohol Use: Yes (SOCIALLY) Hx Substance Use: No Hx Tobacco Use: Yes (1PK A DAY X 40YRS) Smoking Status: Current every day smoker FmHx Family History: No diabetes Physical Exam Vitals Vital Signs Date Temp Pulse Resp B/P (MAP) Pulse Ox O2 O2 Flow FiO2 Time Delivery Rate 08/27/18 106 20 108/72 92 Nasal 17:12 (84) Cannula 08/27/18 97.9 116 30 109/69 91 15:17 (82) Physical Exam Const: No apparent distress, well-developed, well-nourished Head: Normocephalic, Atraumatic Eyes: Normal Conjunctiva. Extraocular movements intact. Pupils equal, round a nd reactive to light ENT: Normal External Ears, Nose and Mouth. Neck: Full range of motion. No meningismus. Resp: Clear to auscultation bilaterally, No wheezes, rales or rhonchi Cardio: Regular rhythm. Tachycardia. No murmurs, rubs or gallops Abd: Obese. Soft, non tender, non distended. Normal bowel sounds Skin: No petechiae or rashes Back: No midline tenderness. No CVA tenderness Ext: No cyanosis, or edema Neur: Awake and alert, oriented 4. Cranial nerves intact. No facial droop. Normal strength, sensation and coordination. Psych: Normal Mood and Affect Result Diagram: 08/27/18 1530 08/27/18 1530 Results 24 hrs Laboratory Tests Test 08/27/18 15:30 08/27/18 15:45 White Blood Count 10.5 10^3/ul Red Blood Count 4.48 10^6/ul Hemoglobin 12.6 g/dl Hematocrit 39.4 % Mean Corpuscular Volume 87.9 fl Mean Corpuscular Hemoglobin 28.1 pg Mean Corpuscular Hemoglobin Concent 32.0 g/dl Red Cell Distribution Width 13.7 % Platelet Count 366 10^3/UL Mean Platelet Volume 8.9 fl Immature Granulocytes % 1.000 % Neutrophils % 74.3 % Lymphocytes % 18.6 % Monocytes % 3.7 % Eosinophils % 2.0 % Basophils % 0.4 % Nucleated Red Blood Cells % 0.0 /100WBC Immature Granulocytes # 0.110 10^3/ul Neutrophils # 7.8 10^3/ul Lymphocytes # 2.0 10^3/ul Monocytes # 0.4 10^3/ul Eosinophils # 0.2 10^3/ul Basophils # 0.0 10^3/ul Nucleated Red Blood Cells # 0.0 10^3/ul Prothrombin Time 14.9 Sec Prothrombin Time Ratio 1.2 INR International Normalized Ratio 1.16 Sodium Level 138 mmol/L Potassium Level 3.9 mmol/L Chloride Level 104 mmol/L Carbon Dioxide Level 27 mmol/L Anion Gap 7 Blood Urea Nitrogen 13 mg/dl Creatinine 1.11 mg/dl Est Glomerular Filtrat Rate mL/min > 60 mL/min Glucose Level 90 mg/dl Calcium Level 8.9 mg/dl Troponin I 0.077 ng/ml B-Type Natriuretic Peptide 2280 PG/ML Bedside Glucose 99 mg/dL Current Medications Medications Dose Sig/Tanner Start Time Status Last (Trade) Ordered Route PRN Stop Time Admin Dose Reason Admin Sodium 500 ml @ Q1H STAT 08/27/18 DC 08/27/18 Chloride 500 mls/hr IV 15:21 15:37 08/27/18 16:20 Sodium 50 ml ONCE ONCE 08/27/18 DC 08/27/18 Bicarbonate IV 20:00 20:26 (Na Bicarb 08/27/18 20:01 8.4% Syg) Ondansetron 4 mg ER BRIDGE 08/27/18 HCl (Zofran PRN IV 20:00 Inj) NAUSEA/VOMITI 08/28/18 19:59 NG 650 mg ER BRIDGE 08/27/18 Acetaminophen PRN PO 20:00 (Tylenol .MILD PAIN 08/28/18 19:59 Tab) 1-3 OR TEMP Procedures/MDM MDM The patient's presentation warrants further investigation. Previous medical records, if available, were reviewed. LABS The patient's laboratory testing was obtained and reviewed. No emergent treatment was required unless described below. CBC: No E/o systemic infection or thrombocytopenia. Normocytic anemia, not emergent. Chemistry: No E/o severe acidosis or alkalosis or renal failure or diabetic ketoacidosis PT/INR: No E/o significant coagulopathy Troponin: Not negative but within normal limits BNP: E/o heart failure, likely chronic EKG EKG read by me: Rate/Rhythm: Sinus tachycardia at 104 bpm Intervals: Normal NC interval and QTc. Wide QRS [place]: Right axis deviation Impression: No evidence of acute ischemia. Sinus tachycardia with a wide QRS complex and a Q wave with a wide R', potentially concerning for amitriptyline overdose IMAGING Imaging and Radiology interpretation reviewed. CXR FINDINGS: There is mild cardiomegaly. There is moderate pulmonary vascular congestion. There are bilateral perihilar and lower lobe increased interstitial changes. There are small bilateral pleural effusions. There is no pneumothorax. IMPRESSION: Mild cardiomegaly with moderate pulmonary vascular congestion. Electronically viewed and signed by .Henok Meneses MD, MD on 08/27/2018 15:48 TREATMENT/DISPOSITION The patient presents after a syncopal event. The patient has a reassuring physical exam. The patient is not clinically orthostatic. The patient is not dizzy. I have decreased suspicion for vertigo. The patient has no signs of emergent or symptomatic anemia. The patient does not have any emergent electrolyte or metabolic emergencies. I have decrease suspicion for a thyroid disorder. The patient is not toxic appearing. I have decreased suspicion for an infectious etiology of symptoms. The patient's EKG does reveal evidence of possible amitriptyline overdose. When speaking to the patient, she does report that she sometimes misses doses and then takes multiple pills to catch up. She did this yesterday prior to the initiation of her syncopal events. This could be the etiology of her symptoms and does require further evaluation and management. The patient was given a dose of bicarbonate in the emergency department. The patient does have rales on exam and her BNP is elevated. I do suspect chronic CHF. With a history of CHF, the patient does not have a negative [place] syncope rule, which warrants admission as well. I do not see evidence of cardiac ischemia and the patient's troponin is within normal limits. I have low suspicion for acute coronary syndrome. I do not see evidence of any emergent cardiac arrhythmia, which includes but is not limited to heart block, Brugada syndrome or WPW. The patient does not endorse any chest or pleuritic pain. The history is negative for bleeding or clotting disorders. The patient has not been involved in any recent prolonged trips or surgeries or hospitalizations. The patient has no calf tenderness or swelling. I have decreased suspicion for PE as the etiology of symptoms. The patient has no focal deficits. The neurologic exam is reassuring. I have decreased suspicion for cerebral ischemia. There was no trauma or injury. There is no personal or family history of cerebral aneurysm. I have decreased suspicion for SAH or other ICH. I have low suspicion for temporal arteritis, cavernous venous thrombosis, subdural hematoma, epidural hematoma, meningitis. ADMISSION At this time, I feel that the patient requires admission for further evaluation and management. The patient will be admitted to [Panel] in accordance with the patient's insurance. The patient was accepted by [] at []. DISCHARGE []Upon reevaluation of the patient, symptoms have improved. No emergent diagnoses were identified. At this time, I feel that the patient stable for discharge. The patient was instructed to follow-up with a primary care physician in 1-3 days. The patient will be given strict precautions with which to return to the emergency department. Prescriptions: [None] The patient's blood pressure was elevated at greater than 120/80 while in the emergency department. The patient was otherwise stable with no evidence of hypertensive urgency or emergency. The patient does not require admission for blood pressure control. I have discussed with the patient the risks of hypertension. I have instructed the patient to return to the ER for any new or worsening symptoms including chest pain, shortness of breath, headache, blurred vision, confusion, nausea, vomiting or LOC. I have advised the patient to follow up with the primary care physician for outpatient monitoring and treatment for hypertension in 1-3 days. Disclaimer: Inadvertent spelling and grammatical errors are likely due to EHR/dictation software use and do not reflect on the overall quality of patient care. Note that the electronic time recorded on this note does not necessarily reflect the actual time of the patient encounter. Departure Diagnosis: Primary Impression: Syncope and collapse Additional Impressions: Amitriptyline overdose Encounter type: initial encounter Injury intent: accidental or uninten tional Qualified Codes: T43.011A - Poisoning by tricyclic antidepressants, accidental (unintentional), initial encounter Sinus tachycardia Chronic CHF Heart failure type: unspecified Qualified Codes: I50.9 - Heart failure, unspecified Elevated brain natriuretic peptide (BNP) level Normocytic anemia Condition: Serious MARIELLE SEAMAN MD August 27, 2018 18:22
[2018-08-27] MEDS ORDERED: ONDANSETRON 4 MG INJ IV PRN (20:00)
[2018-08-27] MEDS ORDERED: NA BICARBONATE 8.4% 50 ML SYG IV ONE (20:00)
[2018-08-27] MEDS ORDERED: ACETAMINOPHEN 325 MG TAB PO PRN (20:00)
[2018-08-27 21:15] VITALS: PULSE 117
[2018-08-27 21:26] VITALS: BP 105/60; PULSE 113; RESP 18
[2018-08-27 22:00] VITALS: Ht 176.5 cm; Wt 110.5 kg
[2018-08-27] MEDS ORDERED: KETOROLAC 30 MG INJ IV ONE (23:00)
[2018-08-27] MEDS: NAPROXEN 250 MG TAB PO PRN (23:00)
--- NOTE | 2018-08-27 23:50 | HP ---
Date/Time of Note Date/Time of Note DATE: 08/27/18 TIME: 23:50 Assessment/Plan VTE Prophylaxis Pharmacological prophylaxis: heparin Lines/Catheters IV Catheter Type (from Nrsg): Saline Lock Assessment/Plan Assessment/Plan 1. Acute on chronic CHF exacerbation -will diurese -2D echo -Consider cardiology consult 2. Possible amitriptyline overdose: Patient forgets to take her amitriptyline and to make up for it has been taking extra doses, which she took yesterday. -EKG was wide QRS. Status post bicarb -Monitor in telemetry unit -Hold amitriptyline for now -Cardiology consult 3. Lightheadedness, status post fall: See above -Telemetry monitoring -2D echo, carotid Doppler ultrasound and head CT -See #2 4. HIV: Continue home meds -Check CD4 and viral load 5. History of pulmonary embolism: Continue Eliquis 6. Bipolar: Continue home meds 7. Hypertension: BP is in acceptable range. Continue home meds Result Diagram: 08/27/18 1530 08/27/18 1530 Results 24hrs Laboratory Tests Test 08/27/18 15:30 08/27/18 15:45 White Blood Count 10.5 # Red Blood Count 4.48 L Hemoglobin 12.6 L Hematocrit 39.4 L Mean Corpuscular Volume 87.9 Mean Corpuscular Hemoglobin 28.1 L Mean Corpuscular Hemoglobin Concent 32.0 Red Cell Distribution Width 13.7 Platelet Count 366 Mean Platelet Volume 8.9 Immature Granulocytes % 1.000 H Neutrophils % 74.3 Lymphocytes % 18.6 Monocytes % 3.7 Eosinophils % 2.0 Basophils % 0.4 Nucleated Red Blood Cells % 0.0 Immature Granulocytes # 0.110 H Neutrophils # 7.8 H Lymphocytes # 2.0 Monocytes # 0.4 Eosinophils # 0.2 Basophils # 0.0 Nucleated Red Blood Cells # 0.0 Prothrombin Time 14.9 Prothrombin Time Ratio 1.2 INR International Normalized Ratio 1.16 Sodium Level 138 Potassium Level 3.9 Chloride Level 104 Carbon Dioxide Level 27 Anion Gap 7 Blood Urea Nitrogen 13 Creatinine 1.11 Est Glomerular Filtrat Rate mL/min > 60 Glucose Level 90 Calcium Level 8.9 Troponin I 0.077 B-Type Natriuretic Peptide 2280 H Bedside Glucose 99 HPI/ROS Admit Date/Time Admit Date/Time August 27, 2018 at 20:00 Hx of Present Illness This is a 52-year-old transgender female with past medical history of HIV on HAART therapy, hepatitis C, status post treatment, bipolar disorder, hypertension, history of staph pneumonia, pneumothorax, history L4-L5 fusion surgery with revision, history of pulmonary embolism on Eliquis, who presented to [facility] complaining of shortness of breath, dizziness. She states she usually gets short of breath, worsening yesterday. She also reported feeling lightheaded/dizzy and falling yesterday. Denied hitting her head. She denied chest pain. When the EMS arrived, oxygen saturation was 89% on room air. When she arrived to the ER, she was tachycardic with a heart rate of 116, respiratory rate 30, oxygen saturation 91%. EKG shows wide QRS otherwise no ST elevation or depression. Patient takes amitriptyline, which she sometimes forgets to take. To make up for it, she takes more than the daily recommended dose. Yesterday she did take extra dose of amitriptyline. Because of the EKG finding, there was a concern in the ER for possible amitriptyline overdose and as such as she was given bicarb. Chest x-ray shows mild cardiomegaly with moderate pulmonary vascular congestion. BNP 2300. First troponin negative. PMH/Family/Social Past Medical History Past Surgical Hx: other (see hpi) Family History Significant Family History: no pertinent family hx Social History Alcohol Use: none Smoking Status: Never smoker Drug Use: none Exam Exam Constitutional: other (No acute distress) Head: normocephalic, atraumatic Eyes: EOMI, PERRL Respiratory: other (no wheezing or Rhonchi) Cardiovascular: normal pulse Gastrointestinal: soft, non-tender Extremities: normal pulses Medications Current Medications Ondansetron HCl (Zofran Inj) 4 mg ER BRIDGE PRN IV NAUSEA/VOMITING; Start 08/27/18 at 20:00; Stop 08/28/18 at 19:59 Acetaminophen (Tylenol Tab) 650 mg ER BRIDGE PRN PO .MILD PAIN 1-3 OR TEMP; Start 08/27/18 at 20:00; Stop 08/28/18 at 19:59 Naproxen (Naprosyn) 220 mg Q8H PRN PO MILD PAIN LEVEL 1-3 Last administered on 08/27/18at 23:00; Admin Dose 220 MG; Start 08/27/18 at 23:00 Coded Allergies: No Known Allergies (Verified Allergy, Unknown, 08/28/18) Family History Significant Family History: other Social History Smoking Status: Current every day smoker Exam/Review of Systems Vital Signs Vitals Vital Signs Date Temp Pulse Resp B/P (MAP) Pulse Ox O2 O2 Flow FiO2 Time Delivery Rate 08/27/18 98.0 113 18 105/60 98 21:26 (75) 08/27/18 Nasal 4.0 20:33 Cannula DEBI WHITAKER MD August 27, 2018 23:50
[2018-08-28] VITALS (12 sets, daily range): BP systolic 107–118; BP diastolic 64–77; PULSE 78–113; RESP 18–20
[2018-08-28] MEDS ORDERED: ACETAMINOPHEN 325 MG TAB PO PRN
[2018-08-28] MEDS ORDERED: IBUPROFEN 800 MG TAB PO PRN
[2018-08-28] MEDS ORDERED: ALBUTEROL/IPRATROPIUM (NEB) 3 ML AMP HHN PRN
[2018-08-28] MEDS ORDERED: NACL 0.9% 3 ML SYG IV SCH
[2018-08-28] MEDS ORDERED: ONDANSETRON 4 MG INJ IV PRN
[2018-08-28] MEDS ORDERED: NA BICARBONATE 8.4% 50 ML SYG IV ONE (00:05)
[2018-08-28] MEDS ORDERED: FUROSEMIDE 40 MG INJ IV ONE (00:06)
[2018-08-28] MEDS: NAPROXEN 250 MG TAB PO PRN ×2 (04:04→20:09)
[2018-08-28] MEDS: PANTOPRAZOLE (EC) 40 MG TAB PO SCH (06:03)
[2018-08-28] MEDS ORDERED: EMTR1TAB11 PO (06:12)
[2018-08-28] MEDS ORDERED: ISEN400 PO (06:12)
[2018-08-28] MEDS ORDERED: PANTOPRAZOLE (EC) 40 MG TAB PO SCH (07:25)
[2018-08-28] MEDS: APIXABAN 5 MG TABLET PO SCH ×2 (08:54→20:08)
[2018-08-28] MEDS: ACYCLOVIR 800 MG TAB PO SCH (08:54)
[2018-08-28] MEDS ORDERED: HEPARIN 5,000 UNIT/1 ML VIAL SC SCH (09:00)
--- NOTE | 2018-08-28 16:03 | PN ---
Date/Time of Note Date/Time of Note DATE: 08/28/18 TIME: 16:02 Assessment/Plan VTE Prophylaxis Risk score (from Ns)>0 risk: 5 SCD applied (from Ns): No SCD contraindicated: other Pharmacological prophylaxis: apixaban Lines/Catheters IV Catheter Type (from [facility]): Saline Lock Assessment/Plan Hospital Course S: Patient had head CT performed, results still pending. Asking for tramadol. O: VS- see below PE: Gen: lying in bed,NAD Head: Normocephalic, Atraumatic Eyes: Normal Conjunctiva. Extraocular movements intact. Pupils equal, round and reactive to light ENT: Normal External Ears, Nose and Mouth. Neck: Full range of motion. No meningismus. Resp: Clear to auscultation bilaterally Cardio: Regular rate and rhythm. No murmurs, rubs or gallops. Right chest tunneled dialysis catheter. Abd: Soft, non tender, non distended. Normal bowel sounds Ext: No lower extremity edema bilaterally Neuro: no focal deficits Carotid doppler: IMPRESSION: Increased velocity in the left distal ICA, suspicious for a possible 50-69% stenosis. However, the internal carotid to common carotid ratio is within normal limits. Follow-up CT angiogram is recommended. - validated velocity measurements with angiographic measurements, velocity criteria are extrapolated from diameter data as defined by the Society of Radiologists in Ultrasound Consensus Conference Radiology 2003; 229;340-346. This study does indirectly reference the measurement of the distal ICA diameter as the denominator for stenosis measurement. A/P: 52-year-old transgender female with past medical history of HIV on HAART therapy, hepatitis C, status post treatment, bipolar disorder, hypertension, history of staph pneumonia, pneumothorax, history L4-L5 fusion surgery with revision, history of pulmonary embolism on Eliquis, who presented to [facility] complaining of shortness of breath, dizziness. 1. Acute on chronic CHF exacerbation -will diurese -Follow-up results of 2D echo -May consider cardiology consult 2. Possible amitriptyline overdose: Patient forgets to take her amitriptyline and to make up for it has been taking extra doses, which she took yesterday. - EKG was wide QRS. Status post bicarb. Patient more awake and alert no -Monitor in telemetry unit -Holding home amitriptyline for now 3. Lightheadedness, status post fall: See above -Telemetry monitoring -Follow-up results of 2D echo -Given the results of the carotid Doppler ultrasound 50 to 69% stenosis, will get CTA neck for further evaluation -Follow-up results of head CT -See #2 4. HIV: - Continue home meds -Follow-up CD4 and viral load 5. History of pulmonary embolism: Continue Eliquis 6. Bipolar: Continue home meds 7. Hypertension: BP is in acceptable range. Continue home meds Result Diagram: 08/28/18 0608 08/28/18 0608 Results 24hrs Laboratory Tests Test 08/28/18 06:08 White Blood Count 6.9 # Red Blood Count 4.35 L Hemoglobin 12.3 L Hematocrit 38.4 L Mean Corpuscular Volume 88.3 Mean Corpuscular Hemoglobin 28.3 L Mean Corpuscular Hemoglobin Concent 32.0 Red Cell Distribution Width 13.5 Platelet Count 378 Mean Platelet Volume 9.2 Immature Granulocytes % 0.900 H Neutrophils % 63.7 Lymphocytes % 24.8 Monocytes % 5.5 Eosinophils % 4.5 Basophils % 0.6 Nucleated Red Blood Cells % 0.0 Immature Granulocytes # 0.060 H Neutrophils # 4.4 Lymphocytes # 1.7 Monocytes # 0.4 Eosinophils # 0.3 Basophils # 0.0 Nucleated Red Blood Cells # 0.0 Sodium Level 141 Potassium Level 3.5 Chloride Level 101 Carbon Dioxide Level 31 Anion Gap 9 Blood Urea Nitrogen 11 Creatinine 0.77 Est Glomerular Filtrat Rate mL/min > 60 Glucose Level 104 Hemoglobin A1c 5.6 Calcium Level 8.4 Magnesium Level 2.1 Total Bilirubin 0.0 L Direct Bilirubin 0.00 Indirect Bilirubin 0.0 Aspartate Amino Transf (AST/SGOT) 41 Alanine Aminotransferase (ALT/SGPT) 15 Alkaline Phosphatase 98 Total Protein 6.7 Albumin 3.4 Globulin 3.30 H Albumin/Globulin Ratio 1.03 Triglycerides Level 125 Cholesterol Level 121 LDL Cholesterol, Calculated 71 HDL Cholesterol 25 L Cholesterol/HDL Ratio 4.8 Thyroid Stimulating Hormone (TSH) 1.220 Exam/Review of Systems Exam Vitals Vital Signs Date Temp Pulse Resp B/P (MAP) Pulse Ox O2 O2 Flow FiO2 Time Delivery Rate 08/28/18 95 12:40 08/28/18 98.0 18 107/65 97 11:12 (79) 08/27/18 Nasal 4.0 20:33 Cannula Intake and Output 08/27/18 08/27/18 08/28/18 1515:00 23:00 07:00 IntakeIntake Total 800 ml BalanceBalance 800 ml Results Results 24hrs Laboratory Tests Test 08/28/18 06:08 White Blood Count 6.9 # Red Blood Count 4.35 L Hemoglobin 12.3 L Hematocrit 38.4 L Mean Corpuscular Volume 88.3 Mean Corpuscular Hemoglobin 28.3 L Mean Corpuscular Hemoglobin Concent 32.0 Red Cell Distribution Width 13.5 Platelet Count 378 Mean Platelet Volume 9.2 Immature Granulocytes % 0.900 H Neutrophils % 63.7 Lymphocytes % 24.8 Monocytes % 5.5 Eosinophils % 4.5 Basophils % 0.6 Nucleated Red Blood Cells % 0.0 Immature Granulocytes # 0.060 H Neutrophils # 4.4 Lymphocytes # 1.7 Monocytes # 0.4 Eosinophils # 0.3 Basophils # 0.0 Nucleated Red Blood Cells # 0.0 Sodium Level 141 Potassium Level 3.5 Chloride Level 101 Carbon Dioxide Level 31 Anion Gap 9 Blood Urea Nitrogen 11 Creatinine 0.77 Est Glomerular Filtrat Rate mL/min > 60 Glucose Level 104 Hemoglobin A1c 5.6 Calcium Level 8.4 Magnesium Level 2.1 Total Bilirubin 0.0 L Direct Bilirubin 0.00 Indirect Bilirubin 0.0 Aspartate Amino Transf (AST/SGOT) 41 Alanine Aminotransferase (ALT/SGPT) 15 Alkaline Phosphatase 98 Total Protein 6.7 Albumin 3.4 Globulin 3.30 H Albumin/Globulin Ratio 1.03 Triglycerides Level 125 Cholesterol Level 121 LDL Cholesterol, Calculated 71 HDL Cholesterol 25 L Cholesterol/HDL Ratio 4.8 Thyroid Stimulating Hormone (TSH) 1.220 Medications Medication Current Medications Ondansetron HCl (Zofran Inj) 4 mg ER BRIDGE PRN IV NAUSEA/VOMITING; Start 08/27/18 at 20:00; Stop 08/28/18 at 19:59 Acetaminophen (Tylenol Tab) 650 mg ER BRIDGE PRN PO .MILD PAIN 1-3 OR TEMP; Start 08/27/18 at 20:00; Stop 08/28/18 at 19:59 Naproxen (Naprosyn) 220 mg Q8H PRN PO MILD PAIN LEVEL 1-3 Last administered on 08/28/18at 04:04; Admin Dose 220 MG; Start 08/27/18 at 23:00 IV Flush (NS 3 ml) 3 ml PER PROTOCOL IV ; Start 08/28/18 at 00:00 Ondansetron HCl (Zofran Inj) 4 mg Q6H PRN IV NAUSEA/VOMITING; Start 08/28/18 at 00:00 Acetaminophen (Tylenol Tab) 650 mg Q6H PRN PO .PAIN 1-3 OR TEMP; Start 08/28/18 at 00:00 Albuterol/ Ipratropium (Duoneb) 3 ml Q2H RESP THERAPY PRN HHN SHORTNESS OF BREATH; Start 08/28/18 at 00:00 Acyclovir (Zovirax) 800 mg DAILY PO Last administered on 08/28/18at 08:54; Admin Dose 800 MG; Start 08/28/18 at 09:00 Apixaban (Eliquis) 2.5 mg BID PO Last administered on 08/28/18at 08:54; Admin Dose 2.5 MG; Start 08/28/18 at 09:00 Pantoprazole (Protonix Tab) 40 mg DAILY@0600 PO Last administered on 08/28/18at 06:03; Admin Dose 40 MG; Start 08/28/18 at 06:00 ERLIN ONEILL August 28, 2018 16:03
[2018-08-28] MEDS: FUROSEMIDE 40 MG INJ IV SCH (18:01)
[2018-08-28] MEDS: RALTEGRAVIR 400 MG TAB PO SCH (20:08)
[2018-08-28] MEDS: traMADol 50 MG TAB PO PRN (20:09)
[2018-08-28] MEDS ORDERED: IOHEXOL 100 ML ONE (20:59)
[2018-08-28] MEDS ORDERED: SOD CHLORIDE 0.9% 100 ML ONE (20:59)
[2018-08-29] VITALS (8 sets, daily range): BP systolic 110–129; BP diastolic 67–81; PULSE 67–111; RESP 17–19
[2018-08-29] MEDS: traMADol 50 MG TAB PO PRN ×2 (04:01→13:12)
[2018-08-29] MEDS: NAPROXEN 250 MG TAB PO PRN ×2 (04:01→13:11)
[2018-08-29] MEDS: PANTOPRAZOLE (EC) 40 MG TAB PO SCH (05:16)
[2018-08-29] MEDS: FUROSEMIDE 40 MG INJ IV SCH (08:08)
[2018-08-29] MEDS: ACYCLOVIR 800 MG TAB PO SCH (08:08)
[2018-08-29] MEDS: RALTEGRAVIR 400 MG TAB PO SCH (08:08)
[2018-08-29] MEDS: APIXABAN 5 MG TABLET PO SCH (08:08)
[2018-08-29] MEDS ORDERED: EMTRICITABINE/TENOFOVIR TAB PO SCH (09:00)
--- NOTE | 2018-08-29 12:30 | PDOCDIS ---
Discharge Instructions DIAGNOSIS Discharge Diagnosis CHF exacerbation CONDITION [id number] Patient Condition: [id number] Good HOME CARE INSTRUCTIONS: [id number] Diet Instructions: [id number] Regular ACTIVITY: [id number] Activity Restrictions: [id number] No Restrictions FOLLOW UP/APPOINTMENTS Follow-up Plan 1. Continue to take all medications as prescribed. 2. See your primary care doctor in 1-2 weeks. 3. Return to the emergency room if you develop severe shortness of breath at rest; or if you develop pressure-like chest pain that does not improve with rest. VICKY ROGEL MD August 29, 2018 12:30
--- NOTE | 2018-08-29 18:39 | DS ---
Date/Time of Note Date/Time of Note DATE: 08/29/18 TIME: 18:36 Discharge Summary Admission/Discharge Info Admit Date/Time August 27, 2018 at 20:00 Discharge Date/Time August 29, 2018 at 14:50 Discharge Diagnosis CHF exacerbation Patient Condition: Good Hx of Present Illness This is a 52-year-old transgender female with past medical history of HIV on H AART therapy, hepatitis C, status post treatment, bipolar disorder, hypertension, history of staph pneumonia, pneumothorax, history L4-L5 fusion surgery with revision, history of pulmonary embolism on Eliquis, who presented to [facility] complaining of shortness of breath, dizziness. She states she usually gets short of breath, worsening yesterday. She also repo rted feeling lightheaded/dizzy and falling yesterday. Denied hitting her head. She denied chest pain. When the EMS arrived, oxygen saturation was 89% on room air. When she arrived to the ER, she was tachycardic with a heart rate of 116, respiratory rate 30, oxygen saturation 91%. EKG shows wide QRS otherwise no ST elevation or depression. Patient takes amitriptyline, which she sometimes forgets to take. To make up for it, she takes more than the daily recommended dose. Yesterday she did take extra dose of amitriptyline. Because of the EKG finding, there was a concern in the ER for possible amitriptyline overdose and as such as she was given bicarb. Chest x-ray shows mild cardiomegaly with moderate pulmonary vascular congestion. BNP 2300. First troponin negative. Hospital Course For her dizziness, the patient did get carotid duplex which showed possible <70% stenosis. However on CT neck angiogram no stenosis was seen. She also appearing slightly fluid overloaded on admission and was given IV lasix. There was question about amitriptyline overdose. On my exam the day of discharge patient had no dizziness and tele showed normal sinus without QRS widening. At time of discharge she was ambulating around on room air, feeling well. Home Meds Reported Medications Emtricitabine-Tenofovir* (Truvada*) 200-300 Mg Tablet, 1 TAB PO DAILY, TAB 08/28/18 Raltegravir Potassium* (Isentress*) 400 Mg Tablet, 400 MG PO BID, TAB 08/28/18 Amitriptyline Hcl* (Amitriptyline Hcl*) 50 Mg Tablet, 50 MG PO QHS, #30 TAB 08/27/18 Apixaban* (Eliquis*) 2.5 Mg Tablet, 2.5 MG PO BID, TAB 08/27/18 Calcium Carbonate/Vitamin D3 (OYSTER SHELL 500 MG + VIT D TB) 1 Each Tablet, 1 EACH PO BID, TAB 08/27/18 Gabapentin* (Gabapentin*) 800 Mg Tablet, 800 MG PO QID, #90 TAB 08/27/18 Pantoprazole* (Pantoprazole*) 40 Mg Tablet.dr, 40 MG PO AC BREAKFAST, TAB 08/27/18 Ibuprofen* (Ibuprofen*) 800 Mg Tab, 800 MG PO BID PRN for PAIN, TAB 08/27/18 Acyclovir* (Acyclovir*) 800 Mg Tablet, 800 MG PO DAILY, TAB 08/27/18 Lisinopril/Hydrochlorothiazide (Lisinopril-Hctz 20-25 mg Tab) 1 Each Tablet, 1 EACH PO DAILY, TAB 08/27/18 Discontinued Reported Medications Amitriptyline Hcl* (Amitriptyline Hcl*) 100 Mg Tablet, 100 MG PO QHS, #30 TAB 08/27/18 Ferrous Sulfate* (Ferrous Sulfate*) 325 Mg Tabec, 325 MG PO BID, TAB 07/10/16 Fluticasone Propionate (Flonase Allergy Relief) 9.9 Ml [place].susp, 1 SPRAY NASAL BID, #1 BOTTLE TO EACH NOSTRIL 07/10/16 Terbinafine Hcl* (Terbinafine Hcl*) 250 Mg Tablet, 250 MG PO DAILY, TAB 07/10/16 Calcium Citrate/Vitamin D (Citracal-Vitamin D 200 MG-250) 1 Each Tablet, 1 EACH PO BID, TAB 07/10/16 Olanzapine* (Zyprexa*) 10 Mg Tablet, 20 MG PO DAILY, #30 TAB 07/10/16 Lisinopril* (Lisinopril*) 20 Mg Tablet, 20 MG PO DAILY, #30 TAB 07/10/16 Multivitamins* (Once Daily*) 1 Tab Tablet, 1 TAB PO DAILY, TAB 01/31/15 Pantoprazole* (Protonix*) 40 Mg Tablet.dr, 40 MG PO DAILY 03/19/13 Emtricitabine-Tenofovir* (Truvada*) 1 Tab Tab, 1 TAB PO DAILY 03/19/13 Raltegravir Potassium* (Isentress*) 400 Mg Tablet, 400 MG PO BID 03/19/13 Discontinued Scripts Naproxen* (Naprosyn*) 500 Mg Tablet, 500 MG PO BID PRN for PAIN AND/OR INFLAMMATION, #30 TAB Prov:YISEL LAO PA-C 08/18/18 Tramadol HCl (Tramadol HCl) 50 Mg Tablet, 50 MG PO Q6, #12 TAB Prov:YISEL LAO PA-C 08/18/18 Ibuprofen* (Motrin*) 600 Mg Tab, 600 MG PO Q6H PRN for PAIN AND OR ELEVATED TEMP, #30 TAB Prov:NIGEL HILL MD 08/14/18 Acetaminophen with Codeine (Acetaminophen-Cod #3 Tablet) 1 Each Tablet, 1 TAB PO Q6H PRN for PAIN, #7 TAB Prov:AUSTIN PRECIADO MD 07/21/18 Cephalexin* (Keflex*) 500 Mg Capsule, 500 MG PO QID for 7 Days, CAP Prov:JAX CONNORS PA-C 07/15/18 Hydrocodone/Acetaminophen (Madison 5-325 Tablet) 1 Each Tablet, 1 TAB PO Q6H PRN for PAIN, #7 TAB Prov:AUSTIN PRECIADO MD 07/09/18 Ondansetron (Ondansetron Odt) 8 Mg Tab.rapdis, 8 MG PO Q6H PRN for NAUSEA AND/OR VOMITING, #10 TAB Prov:AUSTIN PRECIADO MD 05/30/17 Hydrocodone/Acetaminophen (Madison 5-325 Tablet) 1 Each Tablet, 1 TAB PO Q6H PRN for PAIN, #10 TAB Prov:AUSTIN PRECIADO MD 05/30/17 Cyclobenzaprine Hcl* (Cyclobenzaprine Hcl*) 10 Mg Tablet, 10 MG PO Q12, #15 TAB Prov:IQRA ANDINO 12/22/16 Albuterol/Ipratropium* (Combivent Respimat*) 20-100 Mcg/Inh - 4 Gm Aer.w.adap, 1 PUFF INHALATION QID, #1 INHALER Prov:HAYDE OGDEN MD 07/17/16 Methylprednisolone* (Medrol* DOSE PACK) 4 Mg/Dose-Pack Tab.ds.pk, 4 MG PO . DIRECTED for 7 Days, PACKET Prov:HAYDE OGDEN MD 07/17/16 Levofloxacin* (Levofloxacin*) 500 Mg Tablet, 500 MG PO DAILY, #7 TAB Prov:HAYDE OGDEN MD 07/17/16 Sulfamethoxazole-Trimethoprim* (Bactrim* DS) 800-160 Mg Tab, 1 TAB PO BID, #45 TAB Prov:HAYDE OGDEN MD 07/17/16 Apixaban* (Eliquis*) 2.5 Mg Tablet, 5 MG PO BID for 30 Days, TAB Prov:YUDY CINTRON 04/03/15 Follow-up Plan 1. Continue to take all medications as prescribed. 2. See your primary care doctor in 1-2 weeks. 3. Return to the emergency room if you develop severe shortness of breath at rest; or if you develop pressure-like chest pain that does not improve with rest. Primary Care Provider Stan Powell MD Time spent on discharge: > 30 minutes Pending Labs Laboratory Tests Test 08/29/18 06:04 White Blood Count 6.1 10^3/ul (4.8-10.8) Red Blood Count 4.57 10^6/ul (4.70-6.10) Hemoglobin 13.0 g/dl (14.0-18.0) Hematocrit 40.5 % (42.0-52.0) Mean Corpuscular Volume 88.6 fl (82.0-101.0) Mean Corpuscular Hemoglobin 28.4 pg (29.0-33.0) Mean Corpuscular Hemoglobin Concent 32.1 g/dl (32.0-37.0) Red Cell Distribution Width 13.3 % (11.5-14.5) Platelet Count 386 10^3/UL (140-415) Mean Platelet Volume 9.1 fl (7.4-10.4) Immature Granulocytes % 0.700 % (0.001-0.429) Neutrophils % 53.4 % (39.0-77.0) Lymphocytes % 34.2 % (15.0-51.0) Monocytes % 7.1 % (0.0-11.0) Eosinophils % 4.1 % (0.0-7.0) Basophils % 0.5 % (0.0-2.0) Nucleated Red Blood Cells % 0.0 /100WBC (0.0-0.0) Immature Granulocytes # 0.040 10^3/ul (0.0-0.031) Neutrophils # 3.3 10^3/ul (1.6-7.5) Lymphocytes # 2.1 10^3/ul (0.8-2.9) Monocytes # 0.4 10^3/ul (0.3-0.9) Eosinophils # 0.3 10^3/ul (0.0-0.5) Basophils # 0.0 10^3/ul (0.0-0.1) Nucleated Red Blood Cells # 0.0 10^3/ul (0.0-0.0) Sodium Level 139 mmol/L (135-144) Potassium Level 3.9 mmol/L (3.5-5.1) Chloride Level 98 mmol/L (97-110) Carbon Dioxide Level 34 mmol/L (21-31) Anion Gap 7 (5-13) Blood Urea Nitrogen 8 mg/dl (7-20) Creatinine 0.73 mg/dl (0.61-1.24) Est Glomerular Filtrat Rate mL/min > 60 mL/min (>60) Glucose Level 90 mg/dl (70-220) Calcium Level 8.8 mg/dl (8.4-10.2) Phosphorus Level 4.9 mg/dl (2.5-4.9) Magnesium Level 2.2 mg/dl (1.7-2.5) VICKY ROGEL MD August 29, 2018 18:39
--- NOTE | 2018-08-29 21:53 | RADRPT ---
Echocardiogram Report Patient Name: JUDI BARNESPatient ID: [id number] : 1965 (53y )Study Date: 08/29/2018 9:40:44 AM Gender: MAccession #: [id number] Tech: YaaJudi [facility] Location: [address] Ref.Physician: DEBI WHITAKER Height(Cm): BSA: Weight(Kg): Quality: AdequateAccount #: Procedures: Echocardiographic Report: Transthoracic echocardiogram with complete 2D, M-Mode, and doppler examination. Indications: Syncope. Measurements: 2D/M Mode Doppler Measurement Value Normal Range Measurement Value Normal Range LVIDd 2D 3.5 [ 4.2 - 5.8 ] cm AV Peak Joseluis 1.1 [ 100.0 - 170.0 ] cm/sec LVIDs 2D 2.3 [ 2.5 - 4.0 ] cm AV Peak PG 5.0 [ 2.0 - 9.0 ] mmHg LVPWd 2D 1.0 [ 0.6 - 1.0 ] cm LVOT Peak Joseluis 0.8 [ 70.0 - 110.0 ] cm/sec IVSd 2D 1.4 [ 0.6 - 1.0 ] cm LVOT Peak PG 3.0 [ 2.0 - 6.0 ] mmHg AoR Diam 2D 2.8 [ 2.6 - 3.4 ] cm MV E Peak Joseluis 0.5 [ 60.0 - 130.0 ] cm/sec EDV 2D 51.2 [ 62.0 - 150.0 ] ml MV A Peak Joseluis 0.8 [ 100.0 - 120.0 ] cm/sec ESV 2D 17.9 [ 21.0 - 61.0 ] ml MV E/A 0.6 [ 0.8 - 1.5 ] ratio EF 2D 65.0 [ 52.0 - 72.0 ] percent MV Decel Time 116 [ 104 - 258 ] msec LA Dimen 2D 3.1 [ 3.0 - 4.0 ] cm Lat E` Joseluis 0.1 [ 10.0 - 15.0 ] cm/sec Lateral E/E` 8.3 [ 1.0 - 2.0 ] ratio MV E/A 0.6 [ 0.8 - 1.5 ] ratio TR Peak Joseluis 1.9 [ 100.0 - 280.0 ] cm/sec TR Peak PG 14.0 mmHg RVSP 17.0 [ 10.0 - 36.0 ] mmHg Findings: Left Ventricle: Normal left ventricular systolic function. Normal left ventricular cavity size. Sigmoid septum. Ejection fraction is visually estimated at 60 %. Tissue Doppler/Mitral Doppler indices are consistent with impaired relaxation (Stage I diastolic dysfunction). Right Ventricle: Normal right ventricular size. Normal right ventricular systolic function. Left Atrium: The left atrium is normal in size. Right Atrium: The right atrium is normal in size. Mitral Valve: Mild mitral leaflet calcification. Mild mitral annular calcification. Trace mitral regurgitation. Aortic Valve: No hemodynamically significant aortic stenosis by doppler. Aortic cusps appear mildly calcified. Tricuspid Valve: Normal appearance of the tricuspid valve. Estimated peak PA systolic pressure 17 mmHg. There is trace tricuspid regurgitation. Pericardium: Normal pericardium with no significant pericardial effusion. Aorta: Normal aortic root. IVC: Normal size and normal respiratory collapse consistent with normal right atrial pressure. Conclusions: Normal left ventricular systolic function. Normal left ventricular cavity size. Sigmoid septum. Ejection fraction is visually estimated at 60 %. Tissue Doppler/Mitral Doppler indices are consistent with impaired relaxation (Stage I diastolic dysfunction). Normal right ventricular size. Normal right ventricular systolic function. The left atrium is normal in size. The right atrium is normal in size. No significant valvular stenosis or regurgitation seen. Normal pericardium with no significant pericardial effusion. Electronically Signed By: Viktor Solano 2018-08-29 21:52:21 PDT
== END 2018-08-29 14:50 | disposition home or self-care (01) | DRG 293 ==
LOC: E/R 15:04 → TEL 20:00
PROVIDERS: ADMIT Internal Medicine; ATTEND Hospitalist
DX: I11.0 Hypertensive heart disease with heart failure (principal); I50.9 Heart failure, unspecified; G89.29 Other chronic pain; B18.2 Chronic viral hepatitis C; F31.9 Bipolar disorder, unspecified; F17.210 Nicotine dependence, cigarettes, uncomplicated; Z98.1 Arthrodesis status; Z86.711 Personal history of pulmonary embolism; Z79.01 Long term (current) use of anticoagulants; Z87.01 Personal history of pneumonia (recurrent)
CPT/HCPCS: 36415; 70450; 70498; 71045; 80048; 80053; 80061; 80307; 82962; 83036; 83735; 83880; 84100; 84443; 84484; 85025; 85610; 86360; 87536; 93005; 93306; 93880; J1885; J1940; J7040; Q9967

== ENCOUNTER 2018-11-15 06:44 | Emergency (ER) | payer OTHER ==
[~2018-11-15] VITALS: Ht 175.3 cm; Wt 99.7 kg
[~2018-11-15 06:44] MED LIST changes: -ACET1TAB40 PO; +ACYC800T PO; +AMIT50TA3 PO; -BACTDS PO; -CALC-143 PO; +CALC1TAB93 PO; -CEPH-443 PO; +CIPR500T4 PO; -CYCL10TA7 PO; +EMTR1TAB11 PO; -FER325 PO; -FLUT9.9S NASAL; +GABA-528 PO; -HYDR-4011 PO; -IBUP-1542 PO; +IBUP-1545 PO; -IPRA4AER INHALATION; -LEVO500T10 PO; -LISI-471 PO; +LISI1TAB8 PO; -MED4DP PO; -MULT-552 PO; -NAPR-985 PO; -OLAN10TA7 PO; -ONDA8TAB14 PO; -PANT40TA3 PO; +PANT40TA4 PO; +PHEN-538 PO; -TERB250T13 PO; -TRAM50TA2 PO; -TRUV PO
[2018-11-15 06:46] VITALS: Ht 175.3 cm; Wt 99.7 kg
[2018-11-15 09:22] VITALS: BP 116/75; PULSE 83; RESP 18
--- NOTE | 2018-11-15 09:36 | ERD ---
ER Documentation Chief Complaint Chief Complaint painful urination x2 days, mikhail color urine HPI 53-year-old male who identifies as a female presenting with painful urination x2 days. Patient has a dark mikhail-colored states he has burning. He denies any history of kidney stones and denies flank pain. He denies any generalized body weakness and denies any chest pain or shortness of breath. Patient uses cocaine. Medical history HIV. Surgical history denies. ROS All systems reviewed and are negative except as per history of present illness. Medications Home Meds Active Scripts Phenazopyridine Hcl* (Pyridium*) 200 Mg Tab, 200 MG PO TID PRN for URINARY PAIN, #6 TAB Prov:ALBERT GOMEZ PA-C 11/15/18 Ciprofloxacin Hcl* (Ciprofloxacin Hcl*) 500 Mg Tablet, 500 MG PO BID for 7 Days, TAB Prov:ALBERT GOMEZ PA-C 11/15/18 Reported Medications Emtricitabine-Tenofovir* (Truvada*) 200-300 Mg Tablet, 1 TAB PO DAILY, TAB 08/28/18 Raltegravir Potassium* (Isentress*) 400 Mg Tablet, 400 MG PO BID, TAB 08/28/18 Amitriptyline Hcl* (Amitriptyline Hcl*) 50 Mg Tablet, 50 MG PO QHS, #30 TAB 08/27/18 Apixaban* (Eliquis*) 2.5 Mg Tablet, 2.5 MG PO BID, TAB 08/27/18 Calcium Carbonate/Vitamin D3 (OYSTER SHELL 500 MG + VIT D TB) 1 Each Tablet, 1 EACH PO BID, TAB 08/27/18 Gabapentin* (Gabapentin*) 800 Mg Tablet, 800 MG PO QID, #90 TAB 08/27/18 Pantoprazole* (Pantoprazole*) 40 Mg Tablet.dr, 40 MG PO AC BREAKFAST, TAB 08/27/18 Ibuprofen* (Ibuprofen*) 800 Mg Tab, 800 MG PO BID PRN for PAIN, TAB 08/27/18 Acyclovir* (Acyclovir*) 800 Mg Tablet, 800 MG PO DAILY, TAB 08/27/18 Lisinopril/Hydrochlorothiazide (Lisinopril-Hctz 20-25 mg Tab) 1 Each Tablet, 1 EACH PO DAILY, TAB 08/27/18 Allergies Allergies: Coded Allergies: No Known Allergies (Verified Allergy, Unknown, 08/28/18) PMhx/Soc History of Surgery: Yes (Exploratory 1987, Back surgery in 2008 & 2009) Anesthesia Reaction: No Hx Neurological Disorder: No Hx Respiratory Disorders: No Hx Cardiac Disorders: Yes (HTN, current smoker) Hx Psychiatric Problems: Yes (Depression) Hx Miscellaneous Medical Probl: Yes (HIV) Hx Alcohol Use: Yes Hx Substance Use: Yes (cocaine) Hx Tobacco Use: Yes (1 pack/day) Smoking Status: Current every day smoker FmHx Family History: No diabetes, No coronary disease, No other Physical Exam Vitals Vital Signs Date Temp Pulse Resp B/P (MAP) Pulse Ox O2 O2 Flow FiO2 Time Delivery Rate 11/15/18 98.1 83 18 116/75 99 Room Air 09:22 (89) 11/15/18 97.9 91 18 120/81 99 06:46 (94) Physical Exam GENERAL: The patient is well-appearing, well-nourished, in no acute distress HEENT: Atraumatic. Conjunctivae are pink. Pupils equal, round, and reactive to light. There is no scleral icterus. Tympanic membranes clear bilaterally. Oropharynx clear. CHEST: Clear to auscultation bilaterally. There are no rales, wheezes or rhonchi. HEART: Regular rate and rhythm. No murmurs, clicks, rubs or gallops. ABDOMEN:Soft, nontender and nondistended. Good bowel sounds. No rebound or guarding. No gross peritonitis. No gross organomegaly or masses. BACK: No midline or flank tenderness. Result Diagram: 11/15/18 0739 11/15/18 0739 Results 24 hrs Laboratory Tests Test 11/15/18 07:38 11/15/18 07:39 Lipase 82 U/L White Blood Count 6.7 10^3/ul Red Blood Count 5.07 10^6/ul Hemoglobin 14.6 g/dl Hematocrit 44.8 % Mean Corpuscular Volume 88.4 fl Mean Corpuscular Hemoglobin 28.8 pg Mean Corpuscular Hemoglobin Concent 32.6 g/dl Red Cell Distribution Width 14.3 % Platelet Count 311 10^3/UL Mean Platelet Volume 9.3 fl Immature Granulocytes % 0.300 % Neutrophils % 63.4 % Lymphocytes % 24.6 % Monocytes % 9.5 % Eosinophils % 1.6 % Basophils % 0.6 % Nucleated Red Blood Cells % 0.0 /100WBC Immature Granulocytes # 0.020 10^3/ul Neutrophils # 4.3 10^3/ul Lymphocytes # 1.7 10^3/ul Monocytes # 0.6 10^3/ul Eosinophils # 0.1 10^3/ul Basophils # 0.0 10^3/ul Nucleated Red Blood Cells # 0.0 10^3/ul Urine Color MIKHAIL Urine Clarity SLIGHTLY CLOUDY Urine pH 5.0 Urine Specific [place] 1.039 Urine Ketones 2+ mg/dL Urine Nitrite NEGATIVE mg/dL Urine Bilirubin 2+ mg/dL Urine Urobilinogen 2+ mg/dL Urine Leukocyte Esterase TRACE Shilo/ul Urine Microscopic RBC 8 /HPF Urine Microscopic WBC 5 /HPF Urine Mucus MANY /HPF Urine Hemoglobin NEGATIVE mg/dL Urine Glucose NEGATIVE mg/dL Urine Total Protein 2+ mg/dl Sodium Level 141 mmol/L Potassium Level 3.3 mmol/L Chloride Level 103 mmol/L Carbon Dioxide Level 26 mmol/L Anion Gap 12 Blood Urea Nitrogen 28 mg/dl Creatinine 0.81 mg/dl Est Glomerular Filtrat Rate mL/min > 60 mL/min Glucose Level 86 mg/dl Calcium Level 9.7 mg/dl Total Bilirubin 0.5 mg/dl Direct Bilirubin 0.00 mg/dl Indirect Bilirubin 0.5 mg/dl Aspartate Amino Transf (AST/SGOT) 79 IU/L Alanine Aminotransferase (ALT/SGPT) 30 IU/L Alkaline Phosphatase 73 IU/L Total Protein 8.0 g/dl Albumin 4.6 g/dl Globulin 3.40 g/dl Albumin/Globulin Ratio 1.35 Procedures/MDM ER course: Blood work within normal limits. Urinalysis shows urobilinogen levels high. Case was discussed with prior to discharge. MDM: 3-year-old male presenting with mikhail-colored urine. Patient's kidney and liver function looks to be within normal limits based on blood work. Urinalysis shows urobilinogen but no signs of infection. Patient is complaining of dysuria with urination so I will treat with antibiotics. Patient has no muscle weakness I have low suspicion for rhabdomyolysis and he has not had excessive exercise lately. He denies any chest pain or shortness of breath. I do not feel further blood work is or imaging is indicated. Patient's urine is sent for culture. Patient is recommended to follow-up with primary care. I did discuss this case and results with Dr. White prior to discharge and patient was cleared to be sent home to follow-up with primary doctor. All questions answered at discharge Departure Diagnosis: Primary Impression: Genitourinary symptoms Condition: Stable Patient Instructions: Urine Culture Referrals: DYAN MIRANDA MD (PCP) Additional Instructions: FOLLOW UP WITH YOUR PRIMARY CARE PHYSICIAN TOMORROW.Return to this facility if you are not improving as expected. ALBERT GOMEZ PA-C Nov 15, 2018 09:36
== END 2018-11-15 09:35 | disposition home or self-care (01) ==
LOC: FTE 06:44
DX: R39.9 Unspecified symptoms and signs involving the genitourinary system (principal); I10 Essential (primary) hypertension; F17.210 Nicotine dependence, cigarettes, uncomplicated; Z21 Asymptomatic human immunodeficiency virus [HIV] infection status
CPT/HCPCS: 80053; 81001; 83690; 85025; 87591; 99283